=== PATIENT | female | born 1960 ===

== ENCOUNTER 2017-07-18 19:57 | Emergency (ER) | payer MEDICARE, OTHER ==
[2017-07-18 19:58] VITALS: BMI 26.9
--- NOTE | 2017-07-18 20:29 | ED PDOC ---
Arrival/HPI - General Chief Complaint: Anxiety Time Seen by Provider: 07/18/17 20:10 Historian: Patient, Family (daughter) - History of Present Illness Narrative History of Present Illness (Text): 07/18/17 20:25 A 57 year old female, whose past medical history includes diabetes, hypertension , neuropathy, fibromyalgia, anxiety, depression, peripheral neuropathy, presents to the emergency department complaining of sever depression following of [id number]. According to daughter, tonight patient threw herself to the ground, crying. Patient is despondent and talking very little. Patient denies SI/HI. She does mention experiencing slight headache, but denies of any chest pain, shortness of breath, neck pain, back pain, or any other complaints. Symptom Onset: Gradual Symptom Course: Unchanged Past Medical History - Provider Review Nursing Documentation Reviewed: Yes - Infectious Disease Hx of Infectious Diseases: None - Tetanus Immunization Tetanus Immunization: Unknown - Past Medical History Past Medical History: No Previous - Cardiac Hx Pacemaker: No - Pulmonary Hx Respiratory Disorders: Yes Hx Asthma: Yes Hx Pneumonia: Yes - Neurological Hx Paralysis: No - HEENT Hx HEENT Disorder: Yes (uses glasses) - Renal Hx Renal Disorder: No - Endocrine/Metabolic Hx Endocrine Disorders: Yes Hx Diabetes Mellitus Type 2: Yes - Hematological/Oncological Hx Blood Transfusions: No Hx Blood Transfusion Reaction: No - Integumentary Hx Dermatological Disorder: No - Musculoskeletal/Rheumatological Hx Musculoskeletal Disorders: Yes - Gastrointestinal Hx Gastrointestinal Disorders: Yes Hx Gastroesophageal Reflux: Yes - Genitourinary/Gynecological Hx Genitourinary Disorders: No - Psychiatric Hx Emotional Abuse: No Hx Physical Abuse: No Hx Substance Use: No - Surgical History Other/Comment: recent b/l foot sx pt not sure what kind, carpal tunnel b/l sx - Anesthesia Hx Anesthesia Reactions: No Hx Malignant Hyperthermia: No - Suicidal Assessment Feels Threatened In Home Enviroment: No Family/Social History - Physician Review Nursing Documentation Reviewed: Yes Family/Social History: No Known Family HX Smoking Status: Never Smoked Hx Alcohol Use: No Hx Substance Use: No Hx Substance Use Treatment: No Allergies/Home Meds Allergies/Adverse Reactions: Allergies No Known Allergies Allergy (Verified 07/18/17 20:04) Home Medications: Home Meds Medication Instructions Recorded Confirmed Clopidogrel [Plavix] 75 mg PO DAILY 03/10/15 07/18/17 Ergocalciferol (Vitamin D2) 50,000 iu PO QWK 03/10/15 07/18/17 [Vitamin D2] Insulin Glargine, Recombina 24 unit SC HS 03/10/15 07/18/17 [Lantus] Ranitidine HCl 150 mg PO QAM 03/10/15 07/18/17 Losartan [Cozaar] 50 mg PO QAM 06/29/15 07/18/17 Alendronate [Fosamax] 70 mg PO MON 06/30/15 07/18/17 Alprazolam [Xanax] 0.5 mg PO DAILY 08/14/16 07/18/17 Linagliptin [Tradjenta] 5 mg PO DAILY 08/14/16 07/18/17 Simvastatin 40 mg PO DAILY 08/14/16 07/18/17 Metformin HCl [Glucophage] 1,000 mg PO TID 11/15/16 07/18/17 Gabapentin [Neurontin] 600 mg PO TID 11/18/16 07/18/17 Rosuvastatin Calcium 20 mg PO DAILY 11/18/16 07/18/17 Review of Systems - Physician Review All systems were reviewed & negative as marked: Yes - Review of Systems Respiratory: absent: SOB Cardiovascular: absent: Chest Pain Musculoskeletal: absent: Back Pain, Neck Pain Neurological: Headache (slight headache ) Psychiatric: Depression (severe depression) Physical Exam Vital Signs Temp Pulse Resp BP Pulse Ox 07/18/17 22:50 74 16 107/65 100 07/18/17 19:58 98.4 F 72 18 166/104 H 98 Appearance: Positive for: Other (sullen appearance) Mental Status: Positive for: Alert and Oriented X 3 - Systems Exam Head: Present: Atraumatic, Normocephalic Pupils: Present: PERRL Extroacular Muscles: Present: EOMI Conjunctiva: Present: Normal Mouth: Present: Moist Mucous Membranes Neck: Present: Normal Range of Motion Respiratory/Chest: Present: Clear to Auscultation, Good Air Exchange. No: Respiratory Distress, Accessory Muscle Use Cardiovascular: Present: Regular Rate and Rhythm, Normal S1, S2. No: Murmurs Abdomen: Present: Normal Bowel Sounds. No: Tenderness, Distention, Peritoneal Signs Back: Present: Normal Inspection Upper Extremity: Present: Normal Inspection. No: Cyanosis, Edema Lower Extremity: Present: Normal Inspection. No: Edema Neurological: Present: GCS=15, CN II-XII Intact, Speech Normal, Other (no focal deficits) Skin: Present: Warm, Dry, Normal Color. No: Rashes Psychiatric: Present: Alert, Oriented x 3, Other (flat affect) Medical Decision Making ED Course and Treatment: 07/18/17 20:32 Impression: 57 year old female with severe depression. Physical exam shows patient has sullen appearance; alert and oriented x 3, flat affect Plan: -- EKG -- Chest X-ray -- Labs -- Tylenol -- Reassess and disposition Prior Visits: Notes and results from previous visits were reviewed. Patient was last seen in the emergency department on 11/15/2016 for right lower chest pain. Patient was admitted. Progress Notes: EKG shows NSR at 72 BPM with normal intervals. Interpreted by me. 07/19/17 00:11 CXR Impression: As read by me, negative, shows no acute processes. 07/19/17 01:28 Pt. had been cleared prior for d/c psychiatrically by MIRANDA Kinney who cleared with the psychiatrist.[facility] referral given to pt. by MIRANDA.Pts. BS controlled here in the ED following treatment.Pt. is strongly advised to remain compliant with her insulin meds.Family present with her.Both understand in full. - Lab Interpretations Lab Results: 07/18/17 20:45 07/18/17 20:45 Lab Results 07/18/17 20:45: Urine Opiates Screen Negative, Urine Methadone Screen Negative, Ur Barbiturates Screen Negative, Ur Phencyclidine Scrn Negative, Ur Amphetamines Screen Negative, U Benzodiazepines Scrn Negative, U Oth Cocaine Metabols Negative, U Cannabinoids Screen Negative 07/18/17 20:45: Alcohol, Quantitative < 10 07/18/17 20:45: Sodium 136, Potassium 4.4, Chloride 100, Carbon Dioxide 26, Anion Gap 14, BUN 18, Creatinine 0.8, Est GFR ( Amer) > 60, Est GFR (Non- Af Amer) > 60, Random Glucose 594 H* D, Calcium 10.2, Total Bilirubin 0.4, AST 22, ALT 29, Alkaline Phosphatase 151 H, Total Protein 7.4, Albumin 4.2, Globulin 3.1, Albumin/Globulin Ratio 1.4 07/18/17 20:45: WBC 7.5, RBC 4.61, Hgb 13.9, Hct 41.5, MCV 90.0, MCH 30.2, MCHC 33.5, RDW 13.3, Plt Count 219, MPV 12.7 H, Gran % 53.0, Lymph % (Auto) 36.6 H, Vance % (Auto) 7.2 H, Eos % (Auto) 2.4, Baso % (Auto) 0.8, Gran # 3.99, Lymph # 2.8, Vance # 0.5, Eos # 0.2, Baso # 0.06 - RAD Interpretation Radiology Orders: 07/18/17 20:24 CHEST PORTABLE [RAD] Stat - EKG Interpretation Interpreted by ED Physician: Yes Type: 12 lead EKG - Medication Orders Current Medication Orders: Discontinued Medications Acetaminophen (Tylenol 325mg Tab) 650 mg PO STAT STA Stop: 07/18/17 20:27 Last Admin: 07/18/17 21:05 Dose: 650 mg MAR Pain/Vitals Document 07/18/17 21:05 SF (Rec: 07/18/17 21:05 [email or web address]) Pain Reassessment Is This A Pain ReAssessment? Yes Sleep Is patient sleeping during reassessment? No Presence of Pain Presence of Pain Yes Sodium Chloride (Sodium Chloride 0.9%) 1,000 mls @ 999 mls/hr IV .Q1H1M STA Stop: 07/18/17 23:28 Last Admin: 07/18/17 22:15 Dose: 999 mls/hr eMAR Start Stop Document 07/18/17 22:15 CAST (Rec: 07/18/17 22:[id number]) Intravenous Solution Start Date 07/18/17 Start Time 22:59 End Date 07/18/17 Insulin Human Regular (Humulin R) 10 units IVP STAT STA Stop: 07/18/17 21:34 Last Admin: 07/18/17 22:15 Dose: 10 units IVP Administration Document 07/18/17 22:15 [email or web address] (Rec: 07/18/17 22:[id number]) Charges for Administration # of IVP Administrations 1 Insulin Human Regular (Humulin R) 10 units SC STAT STA Stop: 07/18/17 21:34 Last Admin: 07/18/17 22:15 Dose: 10 units Subcutaneous Administrations Document 07/18/17 22:15 [email or web address] (Rec: 07/18/17 22:15 [id number]) Charges for Administration # of Subcutaneous Administrations 1 Subcutaneous Admin in ER Document 07/18/17 22:15 [email or web address] (Rec: 07/18/17 22:15 [email or web address] [id number]) Injection Site MAR Injection Site Left Abdomen - Scribe Statement The provider has reviewed the documentation as recorded by the Jennifer Chand Provider Scribe Attestation: All medical record entries made by the Jennifer were at my direction and personally dictated by me. I have reviewed the chart and agree that the record accurately reflects my personal performance of the history, physical exam, medical decision making, and the department course for this patient. I have also personally directed, reviewed, and agree with the discharge instructions and disposition. Disposition/Present on Arrival - Present on Arrival Any Indicators Present on Arrival: No History of DVT/PE: No History of Uncontrolled Diabetes: No Urinary Catheter: No History of Decub. Ulcer: No History Surgical Site Infection Following: None - Disposition Have Diagnosis and Disposition been Completed?: Yes Diagnosis: Hyperglycemia, Diabetes mellitus, Adjustment disorder with depressed mood Disposition: HOME/ ROUTINE Disposition Time: 01:25 Patient Plan: Discharge Condition: GOOD Additional Instructions: Maintain your insulin medication as prescribed/follow up with your doctor this week/follow up [facility] as instructed Referrals: [facility] [Outside] - Follow up with primary Forms: [employer] (Grenadian)
[2017-07-18 20:49] LABS: BASO # 0.06 K/mm3 (0.0-2.0); BASO % 0.8 % (0.0-3.0); EOS # 0.2 (0.0-0.7); EOS % 2.4 % (1.5-5.0); GRAN # 3.99 (1.4-6.5); HEMATOCRIT 41.5 % (36.0-48.0); LYMPH # 2.8 (1.2-3.4); LYMPH % 36.6 % (22.0-35.0); MEAN CORPUSCULAR HEMOGLOBIN 30.2 pg (25.0-35.0); MEAN CORPUSCULAR HGB CONC 33.5 g/dl (31.0-37.0); MEAN PLATELET VOLUME 12.7 fl (7.0-11.0); MONO # 0.5 (0.1-0.6); MONO % 7.2 % (1.0-6.0); RED CELL DISTRIBUTION WIDTH 13.3 % (11.5-14.5); WHITE BLOOD COUNT 7.5 10^3/ul (4.5-11.0)
[2017-07-18 21:04] LABS: ALB/GLOB RATIO 1.4 (1.1-1.8); ALKALINE PHOSPHATASE 151 U/L (38-126); ALT/SGPT 29 U/L (7-56); AST/SGOT 22 U/L (14-36); BILIRUBIN,TOTAL 0.4 mg/dL (0.2-1.3); BLOOD UREA NITROGEN 18 mg/dL (7-21); CALCIUM 10.2 mg/dL (8.4-10.5); CARBON DIOXIDE 26 mmol/L (21-33); CHLORIDE 100 mmol/L (98-107); GFR AFRICAN-AMERICAN > 60; POTASSIUM 4.4 mmol/L (3.6-5.0); SODIUM 136 mmol/L (132-148); TOTAL PROTEIN 7.4 g/dL (5.8-8.3)
[2017-07-18 21:16] LABS: GLUCOSE,RANDOM 594 mg/dL (70-110)
[2017-07-18] MEDS ORDERED: Insulin Regular 1 UNITS/0.01 ML ML SC STA (21:33)
[2017-07-18] MEDS ORDERED: Insulin Regular 1 UNITS/0.01 ML ML IVP STA (21:33)
[2017-07-18] MEDS ORDERED: Sodium Chloride 0.9% 1,000 ML IV STA (22:28)
[2017-07-19 01:37] VITALS: BP 137/68; PULSE 79; RESP 17; TEMP 98; O2SAT 99
--- NOTE | 2017-07-19 11:46 | RAD ---
HISTORY: medical clearance COMPARISON: 11/15/2016 FINDINGS: LUNGS: No active pulmonary disease. PLEURA: No significant pleural effusion identified, no pneumothorax apparent. CARDIOVASCULAR: Normal. OSSEOUS STRUCTURES: No significant abnormalities. VISUALIZED UPPER ABDOMEN: Normal. OTHER FINDINGS: None. IMPRESSION: No active disease.
--- NOTE | 2017-07-20 08:24 | CARD ---
APPROVED REPORT EKG Measurement Heart [id number] <Conclusion> Normal sinus rhythm Normal ECG No change except the rate is faster now.
== END 2017-07-19 01:37 | disposition home or self-care (01) ==
LOC: ED 19:57
DX: F43.21 Adjustment disorder with depressed mood (principal); E11.65 Type 2 diabetes mellitus with hyperglycemia
CPT/HCPCS: 71010; 80053; 85025; 93005; 96372; 96374; 99284; G0480; J7040

== ENCOUNTER 2017-08-19 19:41 | Emergency (ER) | payer MEDICARE, OTHER ==
[2017-08-19 19:41] VITALS: BMI 26.9
[2017-08-19 19:53] VITALS: TEMP 97.8
[2017-08-19] MEDS ORDERED: Sodium Chloride 0.9% 1,000 ML IV STA (20:13)
[2017-08-19 20:41] LABS: BASO # 0.04 K/mm3 (0.0-2.0); BASO % 0.5 % (0.0-3.0); EOS # 0.1 (0.0-0.7); EOS % 1.5 % (1.5-5.0); GRAN # 3.59 (1.4-6.5); GRAN % 45.5 % (50.0-68.0); HEMATOCRIT 35.7 % (36.0-48.0); LYMPH # 3.7 (1.2-3.4); LYMPH % 46.7 % (22.0-35.0); MEAN CELL VOLUME 88.1 fl (80.0-105.0); MEAN CORPUSCULAR HEMOGLOBIN 29.6 pg (25.0-35.0); MEAN CORPUSCULAR HGB CONC 33.6 g/dl (31.0-37.0); MEAN PLATELET VOLUME 12.3 fl (7.0-11.0); MONO # 0.5 (0.1-0.6); MONO % 5.8 % (1.0-6.0); RED CELL DISTRIBUTION WIDTH 13.9 % (11.5-14.5); WHITE BLOOD COUNT 7.9 10^3/ul (4.5-11.0)
[2017-08-19 20:56] LABS: ALB/GLOB RATIO 1.4 (1.1-1.8); ALKALINE PHOSPHATASE 130 U/L (38-126); ALT/SGPT 32 U/L (7-56); AST/SGOT 21 U/L (14-36); BILIRUBIN,TOTAL 0.6 mg/dL (0.2-1.3); BLOOD UREA NITROGEN 18 mg/dL (7-21); CALCIUM 10.2 mg/dL (8.4-10.5); CARBON DIOXIDE 27 mmol/L (21-33); CHLORIDE 103 mmol/L (98-107); GFR AFRICAN-AMERICAN > 60; POTASSIUM 4.2 mmol/L (3.6-5.0); SODIUM 137 mmol/L (132-148); TOTAL PROTEIN 6.9 g/dL (5.8-8.3)
[2017-08-19 21:03] LABS: INR 1.03 (0.93-1.08); PARTIAL THROMBOPLASTIN TIME 28.7 Seconds (25.1-36.5)
[2017-08-19 21:07] LABS: TROPONIN I < 0.01 ng/mL
[2017-08-19 21:08] LABS: GLUCOSE,RANDOM 339 mg/dL (70-110)
[2017-08-19] MEDS ORDERED: Insulin Reg-MEDIUM-Coverage IV STA (21:08)
--- NOTE | 2017-08-19 21:52 | ED PDOC ---
Arrival/HPI <Shiva Cordero - Last Filed: 08/19/17 22:08> - General Historian: Patient <Marla Harry - Last Filed: 08/20/17 00:14> - General Chief Complaint: Dizziness/Lightheaded Time Seen by Provider: 08/19/17 19:53 - History of Present Illness Narrative History of Present Illness (Text): 08/19/17 21:46 57yo female with PMHx of hypertension, Asthma, diabetes, anxiety who present with complaint of dizziness describes as spinning sensation. Notes that dizziness started when she bent down to cone picker something this morning. States she took Meclizine this morning without relieve. Admits to nausea. she have history of similar dizziness in the past. Denies vomiting, chest pain, focal weakness, headache, visual change, abdominal pain, any other complaint. (Marla Harry) Past Medical History - Provider Review Nursing Documentation Reviewed: Yes - Infectious Disease Hx of Infectious Diseases: None - Tetanus Immunization Tetanus Immunization: Unknown - Past Medical History Past Medical History: No Previous - Cardiac Hx Cardiac Disorders: Yes Hx Hypertension: Yes Hx Pacemaker: No - Pulmonary Hx Respiratory Disorders: Yes Hx Asthma: Yes Hx Pneumonia: Yes - Neurological Hx Paralysis: No - HEENT Hx HEENT Disorder: Yes (uses glasses) - Renal Hx Renal Disorder: No - Endocrine/Metabolic Hx Endocrine Disorders: Yes Hx Diabetes Mellitus Type 2: Yes - Hematological/Oncological Hx Blood Transfusions: No Hx Blood Transfusion Reaction: No - Integumentary Hx Dermatological Disorder: No - Musculoskeletal/Rheumatological Hx Musculoskeletal Disorders: Yes - Gastrointestinal Hx Gastrointestinal Disorders: Yes Hx Gastroesophageal Reflux: Yes - Genitourinary/Gynecological Hx Genitourinary Disorders: No - Psychiatric Hx Emotional Abuse: No Hx Physical Abuse: No Hx Substance Use: No - Surgical History Other/Comment: recent b/l foot sx pt not sure what kind, carpal tunnel b/l sx - Anesthesia Hx Anesthesia: Yes Hx Anesthesia Reactions: No Hx Malignant Hyperthermia: No - Suicidal Assessment Feels Threatened In Home Enviroment: No <Marla Harry - Last Filed: 08/20/17 00:14> Family/Social History - Physician Review Nursing Documentation Reviewed: Yes Family/Social History: Unknown Family HX Smoking Status: Current Some Days Smoker Hx Alcohol Use: No Hx Substance Use: No Hx Substance Use Treatment: No <Marla Harry A - Last Filed: 08/20/17 00:14> Allergies/Home Meds <Shiva Cordero - Last Filed: 08/19/17 22:08> <Marla Harry A - Last Filed: 08/20/17 00:14> Allergies/Adverse Reactions: Allergies No Known Allergies Allergy (Verified 08/19/17 19:49) Home Medications: Home Meds Medication Instructions Recorded Confirmed Clopidogrel [Plavix] 75 mg PO DAILY 03/10/15 08/19/17 Insulin Glargine, Recombina 24 unit SC 03/10/15 08/19/17 [Lantus] Ranitidine HCl 150 mg PO QAM 03/10/15 08/19/17 Losartan [Cozaar] 50 mg PO QAM 06/29/15 08/19/17 Alprazolam [Xanax] 0.5 mg PO DAILY 08/14/16 08/19/17 Linagliptin [Tradjenta] 5 mg PO DAILY 08/14/16 08/19/17 Simvastatin 40 mg PO DAILY 08/14/16 08/19/17 Metformin HCl [Glucophage] 1,000 mg PO TID 11/15/16 08/19/17 Gabapentin [Neurontin] 600 mg PO TID 11/18/16 08/19/17 Rosuvastatin Calcium 20 mg PO DAILY 11/18/16 08/19/17 Review of Systems - Physician Review All systems were reviewed & negative as marked: Yes - Review of Systems Constitutional: Normal Eyes: Normal ENT: Normal Respiratory: Normal Cardiovascular: Normal Gastrointestinal: Normal Genitourinary Female: Normal Musculoskeletal: Normal Skin: Normal Neurological: Headache. absent: Dizziness, Focal Weakness, Speech Changes, Facial Droop Endocrine: Normal Hemo/Lymphatic: Normal Psychiatric: Normal <PieroMarla A - Last Filed: 08/20/17 00:14> Physical Exam Vital Signs Reviewed: Yes Temperature: Afebrile Blood Pressure: Normal Pulse: Regular Respiratory Rate: Normal Appearance: Positive for: Well-Appearing, Non-Toxic, Comfortable Pain Distress: None Mental Status: Positive for: Alert and Oriented X 3 - Systems Exam Head: Present: Atraumatic, Normocephalic Pupils: Present: PERRL Extroacular Muscles: Present: EOMI Conjunctiva: Present: Normal Mouth: Present: Moist Mucous Membranes Neck: Present: Normal Range of Motion Respiratory/Chest: Present: Clear to Auscultation, Good Air Exchange. No: Respiratory Distress, Accessory Muscle Use Cardiovascular: Present: Regular Rate and Rhythm, Normal S1, S2. No: Murmurs Abdomen: Present: Normal Bowel Sounds. No: Tenderness, Distention, Peritoneal Signs Back: Present: Normal Inspection Upper Extremity: Present: Normal Inspection. No: Cyanosis, Edema Lower Extremity: Present: Normal Inspection. No: Edema Neurological: Present: GCS=15, CN II-XII Intact, Speech Normal, Motor Func Grossly Intact, Normal Sensory Function, Normal Cerebellar Funct, Norm Deep Tendon Reflexes, Gait Normal, Memory Normal, Normal 2Pt Descrimination, Other ( No focal neurological deficit) Skin: Present: Warm, Dry, Normal Color. No: Rashes Psychiatric: Present: Alert, Oriented x 3, Normal Insight, Normal Concentration <Marla Harry A - Last Filed: 08/20/17 00:14> Vital Signs Temp Pulse Resp BP Pulse Ox 08/19/17 19:53 97.8 F 62 18 168/97 H 97 Medical Decision Making <Shiva Cordero - Last Filed: 08/19/17 22:08> <Marla Harry - Last Filed: 08/20/17 00:14> ED Course and Treatment: 08/19/17 23:35 PT presented for stated history. She was neurologically intact in ED. Lab was ordered and reviewed with elevated BS noted. She was hydrated and insulin given. On re evaluation she notes that her dizziness resolved. She was ambulatory with steady gait in ED. Repeat FS was EKG NSR @65bpm Head CT - Negative She have seen a Neurologist for her dizziness and takes meclizine at home. She will be DC home to f/u with her PMD/Neruo. (PieroHappiness A) - Lab Interpretations Lab Results: 08/19/17 20:34 08/19/17 20:34 Lab Results 08/19/17 20:34: Sodium 137, Potassium 4.2, Chloride 103, Carbon Dioxide 27, Anion Gap 11, BUN 18, Creatinine 0.7, Est GFR ( Amer) > 60, Est GFR (Non- Af Amer) > 60, Random Glucose 339 H* D, Calcium 10.2, Total Bilirubin 0.6, AST 21, ALT 32, Alkaline Phosphatase 130 H, Lactate Dehydrogenase 408, Total Creatine Kinase 83, Troponin I < 0.01 D, Total Protein 6.9, Albumin 4.0, Globulin 2.9, Albumin/Globulin Ratio 1.4 08/19/17 20:34: PT 11.2, INR 1.03, APTT 28.7 08/19/17 20:34: WBC 7.9, RBC 4.05, Hgb 12.0, Hct 35.7 L, MCV 88.1, MCH 29.6, MCHC 33.6, RDW 13.9, Plt Count 237, MPV 12.3 H, Gran % 45.5 L, Lymph % (Auto) 46.7 H, Bullock % (Auto) 5.8, Eos % (Auto) 1.5, Baso % (Auto) 0.5, Gran # 3.59, Lymph # 3.7 H, Bullock # 0.5, Eos # 0.1, Baso # 0.04 - RAD Interpretation Radiology Orders: 08/19/17 20:14 HEAD W/O CONTRAST [CT] Stat - Medication Orders Current Medication Orders: Discontinued Medications Sodium Chloride (Sodium Chloride 0.9%) 1,000 mls @ 999 mls/hr IV .Q1H1M STA Stop: 08/19/17 21:13 Last Admin: 08/19/17 20:31 Dose: 999 mls/hr eMAR Start Stop Document 08/19/17 20:31 SC (Rec: 08/19/17 20:31 SC [id number]) Intravenous Solution Start Date 08/19/17 Start Time 20:31 End Date 08/19/17 End time 21:31 Total Infusion Time 60 Insulin Human Regular (Humulin R Med) 7 units IV ONCE STA PRN Reason: Protocol Stop: 08/19/17 21:09 Last Admin: 08/19/17 23:21 Dose: 7 units eMAR Start Stop Document 08/19/17 23:21 SC (Rec: 08/19/17 23:21 SC [id number]) Intravenous Solution Start Date 08/19/17 Start Time 23:21 End Date 08/19/17 End time 23:21 Total Infusion Time 0 Meclizine HCl (Antivert) 25 mg PO STAT STA Stop: 08/19/17 20:14 Last Admin: 08/19/17 20:30 Dose: 25 mg Ondansetron HCl (Zofran Inj) 4 mg IVP STAT STA Stop: 08/19/17 20:14 Last Admin: 08/19/17 20:31 Dose: 4 mg IVP Administration Document 08/19/17 20:31 SC (Rec: 08/19/17 20:31 SC [id number]) Charges for Administration # of IVP Administrations 1 - PA / INSPECTOR [employer] / Resident Statement HARPER has reviewed & agrees with the documentation as recorded. HARPER has examined the patient and agrees with the treatment plan. <Shiva Cordero - Last Filed: 08/19/17 22:08> Disposition/Present on Arrival <Shiva Cordero - Last Filed: 08/19/17 22:08> - Present on Arrival Any Indicators Present on Arrival: No History of DVT/PE: No History of Uncontrolled Diabetes: No Urinary Catheter: No History of Decub. Ulcer: No History Surgical Site Infection Following: None - Disposition Have Diagnosis and Disposition been Completed?: Yes Disposition Time: 23:40 Patient Plan: Discharge <Marla Harry - Last Filed: 08/20/17 00:14> - Disposition Diagnosis: Hyperglycemia, Dizziness Disposition: HOME/ ROUTINE Patient Problems: Current Active Problems Problem Status Onset Dizziness Acute Hyperglycemia Acute Condition: STABLE Discharge Instructions (ExitCare): Dizziness (ED) Additional Instructions: follow up with your Doctor/Neurologist Return to ED for any new or worsening symptoms Referrals: Malinda Saucedo MD [Primary Care Provider] - Follow up with primary Forms: [employer] (Martiniquais)
[2017-08-19] MEDS ORDERED: Insulin Regular 1 UNITS/0.01 ML ML ONE (23:19)
--- NOTE | 2017-08-20 00:10 | CT ---
EXAM: CT Head Without Intravenous Contrast CLINICAL HISTORY: 57 years old, female; Pain; Headache; Headache not specified; Additional info: Dizziness TECHNIQUE: Axial computed tomography images of the head/brain without intravenous contrast. All CT scans at this facility use one or more dose reduction techniques, viz.: automated exposure control; ma/kV adjustment per patient size (including targeted exams where dose is matched to indication; i.e. head); or iterative reconstruction technique. COMPARISON: CT - HEAD W/O CONTRAST 2015-11-14 22:10 FINDINGS: Brain: No acute intracranial hemorrhage. No significant white matter disease. No edema. Ventricles: No significant ventriculomegaly. Bones: No acute displaced fracture. Sinuses: Unremarkable as visualized. No acute sinusitis. Mastoid air cells: Unremarkable as visualized. No mastoid effusion. IMPRESSION: No acute intracranial hemorrhage, or suspicious mass effect.
[2017-08-20 00:34] VITALS: BP 153/86; PULSE 67; RESP 16; O2SAT 99
--- NOTE | 2017-08-20 17:04 | CARD ---
APPROVED REPORT EKG Measurement Heart [id number] MA [id number] <Conclusion> Normal sinus rhythm Normal ECG
== END 2017-08-20 00:36 | disposition home or self-care (01) ==
LOC: ED 19:41
DX: E11.65 Type 2 diabetes mellitus with hyperglycemia (principal); R42 Dizziness and giddiness; F17.200 Nicotine dependence, unspecified, uncomplicated; I10 Essential (primary) hypertension; Z79.4 Long term (current) use of insulin
CPT/HCPCS: 70450; 80053; 82550; 82948; 83615; 84484; 85025; 85610; 85730; 93005; 96361; 96374; 99285; J2405; J7040

== ENCOUNTER 2017-11-29 14:34 | Emergency (ER) | payer MEDICARE, OTHER ==
[2017-11-29 15:33] VITALS: BMI 27.8
[2017-11-29 15:43] VITALS: RESP 18; TEMP 98
--- NOTE | 2017-11-29 16:07 | ED PDOC ---
Arrival/HPI - General Chief Complaint: Abnormal Skin Integrity Time Seen by Provider: 11/29/17 15:25 Historian: Patient - History of Present Illness Narrative History of Present Illness (Text): 11/29/17 16:04 57yo female with PMHx of NIDDM , hypertension, Fibromylagia who present with once week history of sinus pressure/pain, nasal congestion. States she started having nonproductive cough ,generalized bodyache and right sided upper back/ breast pain x 2ddays. She did not take any medication. Denies fever, chills, sick contact, travel, chest pain, SOB, dizziness, any other complaint. Past Medical History - Provider Review Nursing Documentation Reviewed: Yes - Infectious Disease Hx of Infectious Diseases: None - Tetanus Immunization Tetanus Immunization: Unknown - Past Medical History Past Medical History: No Previous - Cardiac Hx Cardiac Disorders: Yes Hx Hypertension: Yes - Pulmonary Hx Respiratory Disorders: Yes Hx Asthma: Yes Hx Pneumonia: Yes - Neurological Hx Neurological Disorder: No - HEENT Hx HEENT Disorder: Yes (uses glasses) - Renal Hx Renal Disorder: No - Endocrine/Metabolic Hx Endocrine Disorders: Yes Hx Diabetes Mellitus Type 1: Yes - Hematological/Oncological Hx Blood Disorders: No - Integumentary Hx Dermatological Disorder: No - Musculoskeletal/Rheumatological Hx Musculoskeletal Disorders: Yes - Gastrointestinal Hx Gastrointestinal Disorders: Yes Hx Gastroesophageal Reflux: Yes - Genitourinary/Gynecological Hx Genitourinary Disorders: No - Psychiatric Hx Emotional Abuse: No Hx Physical Abuse: No Hx Substance Use: No - Surgical History Other/Comment: recent b/l foot sx pt not sure what kind, carpal tunnel b/l sx - Anesthesia Hx Anesthesia: Yes Hx Anesthesia Reactions: No Hx Malignant Hyperthermia: No - Suicidal Assessment Feels Threatened In Home Enviroment: No Family/Social History - Physician Review Nursing Documentation Reviewed: Yes Family/Social History: Unknown Family HX Smoking Status: Current Some Days Smoker Hx Alcohol Use: No Hx Substance Use: No Hx Substance Use Treatment: No Allergies/Home Meds Allergies/Adverse Reactions: Allergies No Known Allergies Allergy (Verified 11/29/17 15:44) Review of Systems - Physician Review All systems were reviewed & negative as marked: Yes - Review of Systems Constitutional: Normal Eyes: Normal ENT: Sinus Congestion Respiratory: Cough. absent: SOB, Sputum, Wheezing Cardiovascular: Normal Gastrointestinal: Normal Genitourinary Female: Normal Musculoskeletal: Normal Skin: Rash, Pruritis Neurological: Normal Endocrine: Normal Hemo/Lymphatic: Normal Psychiatric: Normal Physical Exam Vital Signs Reviewed: Yes Vital Signs Temp Pulse Resp BP Pulse Ox 11/29/17 17:30 98 F 76 18 111/76 99 11/29/17 15:40 98 F 71 18 168/83 H 97 Temperature: Afebrile Blood Pressure: Normal Pulse: Regular Respiratory Rate: Normal Appearance: Positive for: Well-Appearing, Non-Toxic, Comfortable Pain Distress: None Mental Status: Positive for: Alert and Oriented X 3 - Systems Exam Head: Present: Atraumatic, Normocephalic Pupils: Present: PERRL Extroacular Muscles: Present: EOMI Conjunctiva: Present: Normal Mouth: Present: Moist Mucous Membranes Nose (Internal): Present: Boggy (B/L), Other (Tenderness over the right maxillary sinus) Neck: Present: Normal Range of Motion Respiratory/Chest: Present: Clear to Auscultation, Good Air Exchange. No: Respiratory Distress, Accessory Muscle Use, Wheezes, Decreased Breath Sounds, Rales, Retracting, Rhonchi Cardiovascular: Present: Regular Rate and Rhythm, Normal S1, S2. No: Murmurs Abdomen: Present: Normal Bowel Sounds. No: Tenderness, Distention, Peritoneal Signs Back: Present: Normal Inspection Upper Extremity: Present: Normal Inspection. No: Cyanosis, Edema Lower Extremity: Present: Normal Inspection. No: Edema Neurological: Present: GCS=15, CN II-XII Intact, Speech Normal Skin: Present: Warm, Dry, Rashes (Erythematous papular rash noted over right breast and right mid back), Normal Color Psychiatric: Present: Alert, Oriented x 3, Normal Insight, Normal Concentration Medical Decision Making ED Course and Treatment: 11/29/17 20:41 Pt in ED for stated history. She was hemodynamcially stable in ED. CXR NAD Rapid flu was negative PT was treated with abx for acute sinusitis. Tamiflu was given for flu like symptoms. Rash is likely viral exanthem and expected to improve without medication. All result was DW the pt. she was advised to drink plenty of fluid . Referred to her PMD. - Lab Interpretations Lab Results: Lab Results 11/29/17 16:00: Influenza Typ A,B (EIA) Negative for flu a/b - RAD Interpretation Radiology Orders: 11/29/17 15:33 CHEST TWO VIEWS (PA/LAT) [RAD] Stat - Medication Orders Current Medication Orders: Discontinued Medications Amoxicillin/Clavulanate Potassium (Augmentin 875 Mg-125 Mg Tab) 1 tab PO STAT STA PRN Reason: Protocol Stop: 11/29/17 17:11 Last Admin: 11/29/17 17:49 Dose: 1 tab Tramadol HCl (Ultram) 50 mg PO STAT STA Stop: 11/29/17 15:41 Last Admin: 11/29/17 16:04 Dose: 50 mg MAR Pain Assessment Document 11/29/17 16:04 [facility] (Rec: 11/29/17 16:04 [facility] [id number]) Pain Reassessment Is this a pain reassessment? No Sleep Is patient sleeping during reassessment? No Presence of Pain Presence of Pain Yes Pain Scale Used Pain Scale Used Numeric Location Left, Right or Bilateral Right Pain Location Body Site Chest Description Intensity of Pain at present 5 Disposition/Present on Arrival - Present on Arrival Any Indicators Present on Arrival: No History of DVT/PE: No History of Uncontrolled Diabetes: No Urinary Catheter: No History of Decub. Ulcer: No History Surgical Site Infection Following: None - Disposition Have Diagnosis and Disposition been Completed?: Yes Diagnosis: Acute sinusitis, Viral syndrome, Viral exanthem Disposition: HOME/ ROUTINE Disposition Time: 17:55 Patient Plan: Discharge Condition: STABLE Discharge Instructions (ExitCare): Sinusitis (ED), Viral Syndrome (ED) Additional Instructions: Drink plenty of fluid and rest Follow up with your doctor Return to ED for any new or worsening symptoms Prescriptions: Amoxicillin/Clavulanate [Augmentin 875 MG-125 MG] 1 tab PO BID #14 tab Benzonatate [Tessalon Perle] 100 mg PO TID #20 capsule Ibuprofen [Motrin Tab] 600 mg PO Q6 #20 tab Oseltamivir Phosphate [Tamiflu] 75 mg PO BID #10 capsule Referrals: [facility] [place]] - Follow up with primary Forms: [employer] (Mongolian)
--- NOTE | 2017-11-29 17:09 | RAD ---
HISTORY: Cough COMPARISON: 07/18/2017 TECHNIQUE: Chest PA and lateral FINDINGS: LUNGS: No active pulmonary disease. PLEURA: No significant pleural effusion identified. No pneumothorax apparent. CARDIOVASCULAR: Normal. OSSEOUS STRUCTURES: No significant abnormalities. VISUALIZED UPPER ABDOMEN: Normal. OTHER FINDINGS: None. IMPRESSION: No active disease. No significant interval change compared to the prior examination(s).
[2017-11-29] MEDS ORDERED: Amoxicillin-Clav 875-125 mg Tab PO STA (17:10)
[2017-11-29 18:16] VITALS: BP 111/76; PULSE 76; O2SAT 99
== END 2017-11-29 18:19 | disposition home or self-care (01) ==
LOC: ED 14:34
DX: J01.90 Acute sinusitis, unspecified (principal); B34.9 Viral infection, unspecified; B09 Unspecified viral infection characterized by skin and mucous membrane lesions; F17.210 Nicotine dependence, cigarettes, uncomplicated

== ENCOUNTER 2018-01-14 11:03 | Emergency (ER) | payer MEDICARE, OTHER ==
[2018-01-14 11:03] VITALS: BMI 27.8
[2018-01-14 11:15] VITALS: TEMP 98.4
[2018-01-14] MEDS ORDERED: Sodium Chloride 0.9% 1,000 ML IV STA (11:54)
--- NOTE | 2018-01-14 11:56 | ED PDOC ---
Arrival/HPI - General Chief Complaint: Back Pain Time Seen by Provider: 01/14/18 11:07 Historian: Patient - History of Present Illness Narrative History of Present Illness (Text): 01/14/18 11:55 This 57 yo female presents to this ED c/o right flank pain x 2 days. Patient stated pain is intermittent, and radiates to lower back. Patient denies fever, sob, cp, uriary symptoms, skin rash, dizziness, trauma, recent travel, sick contact, or abnormal gait. Time/Duration: Other (see hpi) Quality: Aching Context: Home Past Medical History - Provider Review Nursing Documentation Reviewed: Yes - Infectious Disease Hx of Infectious Diseases: None - Tetanus Immunization Tetanus Immunization: Unknown - Past Medical History Past Medical History: No Previous - Cardiac Hx Cardiac Disorders: Yes Hx Hypertension: Yes - Pulmonary Hx Respiratory Disorders: Yes Hx Asthma: Yes Hx Pneumonia: Yes - Neurological Hx Neurological Disorder: No - HEENT Hx HEENT Disorder: Yes (uses glasses) - Renal Hx Renal Disorder: No - Endocrine/Metabolic Hx Endocrine Disorders: Yes Hx Diabetes Mellitus Type 1: Yes - Hematological/Oncological Hx Blood Disorders: No - Integumentary Hx Dermatological Disorder: No - Musculoskeletal/Rheumatological Hx Musculoskeletal Disorders: Yes - Gastrointestinal Hx Gastrointestinal Disorders: Yes Hx Gastroesophageal Reflux: Yes - Genitourinary/Gynecological Hx Genitourinary Disorders: No - Psychiatric Hx Emotional Abuse: No Hx Physical Abuse: No Hx Substance Use: No - Surgical History Hx Orthopedic Surgery: Yes - Anesthesia Hx Anesthesia: Yes Hx Anesthesia Reactions: No Hx Malignant Hyperthermia: No - Suicidal Assessment Feels Threatened In Home Enviroment: No Family/Social History - Physician Review Nursing Documentation Reviewed: Yes Family/Social History: Other (noncontributory) Smoking Status: Current Some Days Smoker Hx Alcohol Use: No Hx Substance Use: No Hx Substance Use Treatment: No Allergies/Home Meds Allergies/Adverse Reactions: Allergies No Known Allergies Allergy (Verified 01/14/18 11:09) Review of Systems - Review of Systems Constitutional: Normal. absent: Fatigue, Weight Change, Fevers Eyes: Normal ENT: Normal Respiratory: Normal Cardiovascular: Normal Gastrointestinal: Abdominal Pain (right flank pain) Genitourinary Female: Normal. absent: Dysuria, Frequency, Hematuria Musculoskeletal: Back Pain Skin: Normal Neurological: Normal Endocrine: Normal Hemo/Lymphatic: Normal Psychiatric: Normal Physical Exam Vital Signs Temp Pulse Resp BP Pulse Ox 01/14/18 11:14 98.4 F 90 15 141/85 97 Temperature: Afebrile Blood Pressure: Normal Pulse: Regular Respiratory Rate: Normal Appearance: Positive for: Well-Appearing, Non-Toxic, Comfortable Pain Distress: None Mental Status: Positive for: Alert and Oriented X 3 - Systems Exam Head: Present: Atraumatic, Normocephalic Pupils: Present: PERRL Extroacular Muscles: Present: EOMI Conjunctiva: Present: Normal Mouth: Present: Moist Mucous Membranes Neck: Present: Normal Range of Motion Respiratory/Chest: Present: Clear to Auscultation, Good Air Exchange. No: Respiratory Distress, Accessory Muscle Use Cardiovascular: Present: Regular Rate and Rhythm, Normal S1, S2. No: Murmurs Abdomen: Present: Normal Bowel Sounds. No: Tenderness, Distention, Peritoneal Signs, Rebound, Guarding Back: Present: Normal Inspection, Paraspinal Tenderness (mild right paravertebral tenderness.). No: CVA Tenderness, Midline Tenderness Upper Extremity: Present: Normal Inspection, Normal ROM. No: Cyanosis, Edema Lower Extremity: Present: Normal Inspection, Normal ROM. No: Edema Neurological: Present: GCS=15, CN II-XII Intact, Speech Normal, Motor Func Grossly Intact, Normal Sensory Function, Normal Cerebellar Funct, Gait Normal, Memory Normal Skin: Present: Warm, Dry, Normal Color. No: Rashes Psychiatric: Present: Alert, Oriented x 3, Normal Insight, Normal Concentration Medical Decision Making ED Course and Treatment: 01/14/18 13:36 Re-evaluation. Patient feels better. Discussed results and plan with patient who expresses understanding. All questions answered and there is agreement with the plan to discharge home with instructions. Patient stable for discharge. Return if symptoms persist or worsen. Re-evaluation Time: 13:36 Reassessment Condition: Re-examined, Improved - Lab Interpretations Lab Results: 01/14/18 11:50 01/14/18 11:50 Lab Results 01/14/18 11:50: Sodium 142, Potassium 5.0, Chloride 99, Carbon Dioxide 33, Anion Gap 15, BUN 10, Creatinine 0.6 L, Est GFR ( Amer) > 60, Est GFR ( Non-Af Amer) > 60, Random Glucose 294 H, Calcium 11.1 H, Total Bilirubin 0.6, AST 25, ALT 27, Alkaline Phosphatase 140 H, Total Protein 8.3, Albumin 4.6, Globulin 3.7, Albumin/Globulin Ratio 1.2 01/14/18 11:50: Urine Color Yellow, Urine Appearance Sl cloudy, Urine pH 6.0, Ur Specific [place] 1.025, Urine Protein Negative, Urine Glucose (UA) 100 H, Urine Ketones Negative, Urine Blood Trace-intact H, Urine Nitrate Negative, Urine Bilirubin Negative, Urine Urobilinogen 0.2, Ur Leukocyte Esterase Moderate H, Urine RBC 0 - 2, Urine WBC 5 - 10, Ur Epithelial Cells 0 - 2, Urine Bacteria Few 01/14/18 11:50: WBC 8.9, RBC 4.88, Hgb 14.7 D, Hct 43.8, MCV 89.8, MCH 30.1, MCHC 33.6, RDW 13.0, Plt Count 295, MPV 12.4 H, Gran % 46.3 L, Lymph % (Auto) 47.1 H, [place] % (Auto) 3.6, Eos % (Auto) 2.3, Baso % (Auto) 0.7, Gran # 4.11, Lymph # (Auto) 4.2 H, [place] # (Auto) 0.3, Eos # (Auto) 0.2, Baso # (Auto) 0.06 I have reviewed the lab results: Yes Interpretation: Abnormal lab values (acute cystitis) - RAD Interpretation Radiology Orders: 01/14/18 11:54 ABD & PELVIS W/O PO OR IV CONT [CT] Stat - Medication Orders Current Medication Orders: Discontinued Medications Sodium Chloride (Sodium Chloride 0.9%) 1,000 mls @ 999 mls/hr IV .Q1H1M STA Stop: 01/14/18 12:54 Last Admin: 01/14/18 11:40 Dose: 999 mls/hr eMAR Start Stop Document 01/14/18 11:40 HI (Rec: 01/14/18 12:05 HI [id number]) Intravenous Solution Start Date 01/14/18 Start Time 11:40 Ketorolac Tromethamine (Toradol) 15 mg IVP STAT STA Stop: 01/14/18 11:55 Last Admin: 01/14/18 12:19 Dose: 15 mg MAR Pain Assessment Document 01/14/18 12:19 PRINCIPAL CLERK (Rec: 01/14/18 12:19 PRINCIPAL CLERK [id number]) Pain Reassessment Is this a pain reassessment? No IVP Administration Document 01/14/18 12:19 [facility] (Rec: 01/14/18 12:19 [id number] Charges for Administration # of IVP Administrations 1 Nitrofurantoin Macrocrystals (Macrobid) 100 mg PO STAT STA PRN Reason: Protocol Stop: 01/14/18 12:47 Phenazopyridine HCl (Pyridium) 200 mg PO STAT STA Stop: 01/14/18 12:48 Disposition/Present on Arrival - Present on Arrival Any Indicators Present on Arrival: No History of DVT/PE: No History of Uncontrolled Diabetes: No Urinary Catheter: No History of Decub. Ulcer: No History Surgical Site Infection Following: None - Disposition Have Diagnosis and Disposition been Completed?: Yes Diagnosis: Acute cystitis, Back pain Disposition: HOME/ ROUTINE Disposition Time: 13:37 Patient Plan: Discharge Patient Problems: Current Active Problems Problem Status Onset Acute cystitis Acute Back pain Acute Condition: GOOD Discharge Instructions (ExitCare): Acute Cystitis (DC) Additional Instructions: Call private doctor for follow up visit in 1-2 days. Drink enough fluids. Take medication as instructed with food. Return to emergency if symptoms worsen Prescriptions: Nitrofurantoin Macrocrystals [Macrobid] 100 mg PO BID #14 cap Phenazopyridine HCl [Pyridium] 200 mg PO TID #9 tablet Referrals: Adán Arevalo MD [Staff Provider] - Follow up with primary Forms: [employer] (Salvadorean)
[2018-01-14 12:03] LABS: BASO # 0.06 K/mm3 (0.0-2.0); BASO % 0.7 % (0.0-3.0); EOS # 0.2 (0.0-0.7); EOS % 2.3 % (1.5-5.0); GRAN # 4.11 (1.4-6.5); GRAN % 46.3 % (50.0-68.0); HEMOGLOBIN 14.7 g/dL (12.0-16.0); LYMPH # 4.2 (1.2-3.4); LYMPH % 47.1 % (22.0-35.0); MEAN CELL VOLUME 89.8 fl (80.0-105.0); MEAN CORPUSCULAR HEMOGLOBIN 30.1 pg (25.0-35.0); MEAN CORPUSCULAR HGB CONC 33.6 g/dl (31.0-37.0); MEAN PLATELET VOLUME 12.4 fl (7.0-11.0); MONO # 0.3 (0.1-0.6); MONO % 3.6 % (1.0-6.0); RBC 4.88 10^6/uL (3.5-6.1); WHITE BLOOD COUNT 8.9 10^3/ul (4.5-11.0)
[2018-01-14 12:04] LABS: URINE BILIRUBIN NEGATIVE (NEGATIVE); URINE BLOOD TRACE-INTACT (NEGATIVE); URINE GLUCOSE (UA) 100 mg/dL (NEGATIVE); URINE LEUKOCYTE ESTERASE MODERATE Leu/uL (NEGATIVE); URINE PROTEIN NEGATIVE mg/dL (<30 mg/dL); URINE UROBILINOGEN 0.2 E.U./dL (<1 E.U./dL)
[2018-01-14 12:05] LABS: URINE COLOR YELLOW (YELLOW)
[2018-01-14 12:12] LABS: ALB/GLOB RATIO 1.2 (1.1-1.8); ALBUMIN 4.6 g/dL (3.0-4.8); ALT/SGPT 27 U/L (7-56); AST/SGOT 25 U/L (14-36); BLOOD UREA NITROGEN 10 mg/dL (7-21); CALCIUM 11.1 mg/dL (8.4-10.5); GFR AFRICAN-AMERICAN > 60; GFR NON-AFRICAN AMERICAN > 60; URINE APPEARANCE SL CLOUDY (CLEAR)
[2018-01-14 12:13] LABS: URINE BACTERIA FEW (NEG); URINE EPITHELIAL CELLS 0 - 2 /hpf (0-5); URINE RBC 0 - 2 /hpf (0-2)
--- NOTE | 2018-01-14 12:41 | CT ---
PROCEDURE: CT Abdomen and Pelvis without intravenous contrast HISTORY: right flank pain COMPARISON: None. TECHNIQUE: Without contrast.. Contrast Dose: Radiation dose: Total exam DLP = Total exam DLP = 643 mGy-cm. This CT exam was performed using one or more of the following dose reduction techniques: Automated exposure control, adjustment of the mA and/or kV according to patient size, and/or use of iterative reconstruction technique. FINDINGS: LOWER THORAX: Unremarkable. LIVER: Unremarkable. No gross lesion or ductal dilatation. GALLBLADDER AND BILE DUCTS: Unremarkable. PANCREAS: Unremarkable. No gross lesion or ductal dilatation. SPLEEN: Unremarkable. ADRENALS: There is a 12 mm left adrenal nodule. This is unchanged KIDNEYS AND URETERS: Unremarkable. No hydronephrosis. No solid mass. VASCULATURE: Unremarkable. No aortic aneurysm. BOWEL: Unremarkable. No obstruction. No gross mural thickening. APPENDIX: Unremarkable. Normal appendix. PERITONEUM: Unremarkable. No free fluid. No free air. LYMPH NODES: Unremarkable. No enlarged lymph nodes. BLADDER: Unremarkable. REPRODUCTIVE: Unremarkable. BONES: No acute fracture. OTHER FINDINGS: None. IMPRESSION: No acute findings
[2018-01-14 14:04] VITALS: BP 142/78; PULSE 82; RESP 18; O2SAT 98
== END 2018-01-14 14:04 | disposition home or self-care (01) ==
LOC: ED 11:03
DX: N30.00 Acute cystitis without hematuria (principal); M54.9 Dorsalgia, unspecified; I10 Essential (primary) hypertension; F17.200 Nicotine dependence, unspecified, uncomplicated
CPT/HCPCS: 74176; 80053; 81001; 85025; 87086; 96374; 99283; J1885; J7040

== ENCOUNTER 2018-03-08 23:44 | Observation (INO) | payer MEDICARE, OTHER ==
--- NOTE | 2018-03-09 00:11 | ED PDOC ---
Arrival/HPI - General Time Seen by Provider: 03/08/18 23:46 Historian: Patient, Family - History of Present Illness Narrative History of Present Illness (Text): 03/09/18 00:09 Alena Ashley is a 57 year old female smoker, whose past medical history includes COPD, IDDM, hypertension, asthma, hyperlipidemia, and GERD, who presents to the emergency room complaining of chest pain. 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 Patient notes pain is worsened with deep inspiration. Patient reports associated nausea with 1 episode of vomiting. Patient denies any fever, chills, shortness of breath, diarrhea, urinary symptoms, back pain, neck pain, headache, dizziness, or any other complaints. Symptom Onset: Gradual Symptom Course: Unchanged Activities at Onset: Light Context: Home Past Medical History - Provider Review Nursing Documentation Reviewed: Yes - Infectious Disease Hx of Infectious Diseases: None - Tetanus Immunization Tetanus Immunization: Unknown - Past Medical History Past Medical History: No Previous - Cardiac Hx Cardiac Disorders: Yes Hx Hypertension: Yes - Pulmonary Hx Respiratory Disorders: Yes Hx Asthma: Yes Hx Pneumonia: Yes - Neurological Hx Neurological Disorder: No - HEENT Hx HEENT Disorder: Yes (uses glasses) - Renal Hx Renal Disorder: No - Endocrine/Metabolic Hx Endocrine Disorders: Yes Hx Diabetes Mellitus Type 1: Yes - Hematological/Oncological Hx Blood Disorders: No - Integumentary Hx Dermatological Disorder: No - Musculoskeletal/Rheumatological Hx Musculoskeletal Disorders: Yes - Gastrointestinal Hx Gastrointestinal Disorders: Yes Hx Gastroesophageal Reflux: Yes - Genitourinary/Gynecological Hx Genitourinary Disorders: No - Psychiatric Hx Emotional Abuse: No Hx Physical Abuse: No Hx Substance Use: No - Surgical History Hx Orthopedic Surgery: Yes - Anesthesia Hx Anesthesia: Yes Hx Anesthesia Reactions: No Hx Malignant Hyperthermia: No - Suicidal Assessment Feels Threatened In Home Enviroment: No Family/Social History - Physician Review Nursing Documentation Reviewed: Yes Family/Social History: Unknown Family HX Smoking Status: Current Some Days Smoker Hx Alcohol Use: No Hx Substance Use: No Hx Substance Use Treatment: No Allergies/Home Meds Allergies/Adverse Reactions: Allergies No Known Allergies Allergy (Verified 03/09/18 00:16) Review of Systems - Physician Review All systems were reviewed & negative as marked: Yes - Review of Systems Constitutional: Normal. absent: Fevers Eyes: Normal ENT: Normal Respiratory: Normal. absent: SOB, Cough Cardiovascular: Chest Pain Gastrointestinal: Abdominal Pain. absent: Diarrhea, Nausea, Vomiting Genitourinary Female: Normal. absent: Dysuria, Frequency, Hematuria, Urine Output Changes Musculoskeletal: Normal. absent: Back Pain, Neck Pain Skin: Normal. absent: Rash Neurological: Normal. absent: Headache, Dizziness Endocrine: Normal Hemo/Lymphatic: Normal Psychiatric: Normal Physical Exam Vital Signs Reviewed: Yes Vital Signs Temp Pulse Resp BP Pulse Ox 03/09/18 02:21 83 17 131/83 100 03/09/18 00:09 97.9 F 89 17 148/100 H 99 Temperature: Afebrile Blood Pressure: Normal Pulse: Regular Respiratory Rate: Normal Appearance: Positive for: Well-Appearing, Non-Toxic, Comfortable Pain Distress: None Mental Status: Positive for: Alert and Oriented X 3 - Systems Exam Head: Present: Atraumatic, Normocephalic Pupils: Present: PERRL Extroacular Muscles: Present: EOMI Conjunctiva: Present: Normal Mouth: Present: Moist Mucous Membranes Neck: Present: Normal Range of Motion Respiratory/Chest: Present: Clear to Auscultation, Good Air Exchange. No: Respiratory Distress, Accessory Muscle Use Cardiovascular: Present: Regular Rate and Rhythm, Normal S1, S2. No: Murmurs Abdomen: No: Tenderness, Distention, Peritoneal Signs Back: Present: Normal Inspection Upper Extremity: Present: Normal Inspection. No: Cyanosis, Edema Lower Extremity: Present: Normal Inspection. No: Edema Neurological: Present: GCS=15, CN II-XII Intact, Speech Normal Skin: Present: Warm, Dry, Normal Color. No: Rashes Psychiatric: Present: Alert, Oriented x 3, Normal Insight, Normal Concentration Medical Decision Making ED Course and Treatment: 03/09/18 00:09 Impression: 57 year old female complaining of chest pressure radiating to LUQ tonight. Plan: -- EKG -- Chest X-ray -- Labs, cardiac enzymes, BNP, VBG -- Reassess and disposition Prior Visits: Notes and results from previous visits were reviewed. Progress Notes: Reviewed EKG, NSR at [address]-segment elevations or depressions, no T-wave inversions, normal intervals. 03/09/18 01:34 Chest X-ray reviewed, shows no acute processes. 05/21/18 02:[address] Saucedo, who is aware and agrees with plan. Accepts pt in to her service. Pt will go to telemetry observation for chest pain and hyperglycemia. - Lab Interpretations Lab Results: 03/09/18 00:25 03/09/18 00:25 Lab Results 03/09/18 00:25: Sodium 139, Chloride 99, Potassium 5.0, Carbon Dioxide 28, Anion Gap 17, BUN 16, Creatinine 0.8, Est GFR ( Amer) > 60, Est GFR (Non- Af Amer) > 60, Random Glucose 525 H* D, Calcium 9.8, Magnesium 1.8, Total Bilirubin 0.3, AST 21, ALT 29, Alkaline Phosphatase 146 H, Lactate Dehydrogenase 426, Total Creatine Kinase 74, Troponin I < 0.01, NT-Pro-B Natriuret Pep 30.5, Total Protein 7.1, Albumin 4.1, Globulin 3.0, Albumin/ Globulin Ratio 1.3 03/09/18 00:25: pO2 50, VBG pH 7.28 L, VBG pCO2 63.0 H, VBG HCO3 29.6 H, VBG Total CO2 31.5 H, VBG O2 Sat (Calc) 86.8 H, VBG Base Excess 1.2, VBG Potassium 4.8, Sodium 137.0, Chloride 100.0, Glucose 555 H*, Lactate 4.3 H*, FiO2 21.0, Venous Blood Potassium 4.8 03/09/18 00:25: WBC 9.6, RBC 4.33, Hgb 13.4, Hct 39.1, MCV 90.3, MCH 30.9, MCHC 34.3, RDW 13.9, Plt Count 285, MPV 12.1 H, Gran % 47.7 L, Lymph % (Auto) 42.4 H , Lamb % (Auto) 7.0 H, Eos % (Auto) 2.3, Baso % (Auto) 0.6, Gran # 4.57, Lymph # (Auto) 4.1 H, Lamb # (Auto) 0.7 H, Eos # (Auto) 0.2, Baso # (Auto) 0.06 03/09/18 00:25: PT 11.6, INR 1.02, APTT 30.3 I have reviewed the lab results: Yes - RAD Interpretation Radiology Orders: 03/09/18 00:24 CHEST PORTABLE [RAD] 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 Yes Sleep Is patient sleeping during reassessment? 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 Intermittent Intensity 3 Pain Behavior Irritability Facial Grimacing Aggravating Factors ADL's Exercise/Activity Alleviating Factors Medication Aspirin (Aspirin) 325 mg PO DAILY REPLACED BY [facility] Last Admin: 03/10/18 09:20 Dose: Not Given Non-Admin Reason: Patient Refused Aspirin (Aspirin Chewable) 81 mg PO DAILY REPLACED BY [facility] Last Admin: 03/10/18 10:05 Dose: Not Given Non-Admin Reason: Patient Refused Famotidine (Pepcid) 40 mg PO [facility] Last Admin: 03/09/18 21:54 Dose: 40 mg Sodium Chloride (Sodium Chloride 0.9%) 1,000 mls @ 80 mls/hr IV .[id number] REPLACED BY [facility] Last Admin: 03/10/18 04:29 Dose: 80 mls/hr eMAR Start Stop Document 03/10/18 04:29 OLIVStephanie (Rec: 03/10/18 04:29 OLIVD [id number]) Intravenous Solution Start Date 03/10/18 Start Time 04:29 Insulin Human Regular (Humulin R) 10 units IVP STAT STA Stop: 03/09/18 02:06 Last Admin: 03/09/18 02:20 Dose: 10 units MAR Blood Glucose Document 03/09/18 02:20 IT (Rec: 03/09/18 02:20 IT [id number]) Blood Glucose Finger Stick Blood Glucose (70-120) 525 IVP Administration Document 03/09/18 02:20 IT (Rec: 03/09/18 02:20 IT [id number]) Charges for Administration # of IVP Administrations 1 Insulin Human Regular (Humulin R Low) 0 units SC ACHS REPLACED BY [facility] PRN Reason: Protocol Last Admin: 03/10/18 12:24 Dose: 2 units MAR Blood Glucose Document 03/10/18 12:24 [facility] (Rec: 03/10/18 12:24 [facility] [id number]) Blood Glucose Finger Stick Blood Glucose (70-120) 247 Subcutaneous Administrations Document 03/10/18 12:24 [facility] (Rec: 03/10/18 12:24 [facility] [id number]) Injection Site MAR Injection Site Right Arm Charges for Administration # of Subcutaneous Administrations 1 Lisinopril (Zestril) 5 mg PO DAILY REPLACED BY [facility] Last Admin: 03/10/18 10:44 Dose: 5 mg MAR Pulse and Blood Pressure Document 03/10/18 10:44 [facility] (Rec: 03/10/18 10:44 [facility] [id number]) Pulse Pulse Rate (60-90) 65 Blood Pressure Blood Pressure (100/60-150/90) 129/83 Metoprolol Tartrate (Lopressor) 25 mg PO BID REPLACED BY [facility] Last Admin: 03/10/18 10:44 Dose: 25 mg MAR Pulse and Blood Pressure Document 03/10/18 10:44 [facility] (Rec: 03/10/18 10:44 [facility] [id number]) Pulse Pulse Rate (60-90) 65 Blood Pressure Blood Pressure (100/60-150/90) 129/83 - Scribe Statement The provider has reviewed the documentation as recorded by the Jennifer Katz Provider Scribe Attestation: All medical record entries made by the Scribe were at my direction and personally dictated by me. I have reviewed the chart and agree that the record accurately reflects my personal performance of the history, physical exam, medical decision making, and the department course for this patient. I have also personally directed, reviewed, and agree with the discharge instructions and disposition. Disposition/Present on Arrival - Present on Arrival Any Indicators Present on Arrival: No History of DVT/PE: No History of Uncontrolled Diabetes: No Urinary Catheter: No History Surgical Site Infection Following: None - Disposition Have Diagnosis and Disposition been Completed?: Yes Diagnosis: Chest pain Disposition: HOSPITALIZED Disposition Time: 02:47 Condition: FAIR
[2018-03-09 01:06] LABS: BASO # 0.06 K/mm3 (0.0-2.0); BASO % 0.6 % (0.0-3.0); EOS # 0.2 (0.0-0.7); EOS % 2.3 % (1.5-5.0); GRAN # 4.57 (1.4-6.5); GRAN % 47.7 % (50.0-68.0); HEMOGLOBIN 13.4 g/dL (12.0-16.0); LYMPH # 4.1 (1.2-3.4); LYMPH % 42.4 % (22.0-35.0); MEAN CELL VOLUME 90.3 fl (80.0-105.0); MEAN CORPUSCULAR HEMOGLOBIN 30.9 pg (25.0-35.0); MEAN CORPUSCULAR HGB CONC 34.3 g/dl (31.0-37.0); MEAN PLATELET VOLUME 12.1 fl (7.0-11.0); MONO # 0.7 (0.1-0.6); RBC 4.33 10^6/uL (3.5-6.1); RED CELL DISTRIBUTION WIDTH 13.9 % (11.5-14.5); WHITE BLOOD COUNT 9.6 10^3/ul (4.5-11.0)
[2018-03-09 01:09] LABS: VENOUS BLOOD GAS BASE EXCESS 1.2 mmol/L (0.0-2.0); VENOUS BLOOD GAS PO2 50 mm/Hg (30-55); VENOUS BLOOD PH 7.28 (7.32-7.43)
[2018-03-09 01:19] LABS: ALB/GLOB RATIO 1.3 (1.1-1.8); ALBUMIN 4.1 g/dL (3.0-4.8); ALT/SGPT 29 U/L (7-56); AST/SGOT 21 U/L (14-36); BLOOD UREA NITROGEN 16 mg/dL (7-21); CALCIUM 9.8 mg/dL (8.4-10.5); GFR AFRICAN-AMERICAN > 60; GFR NON-AFRICAN AMERICAN > 60
[2018-03-09 01:28] LABS: INR 1.02 (0.93-1.08); PARTIAL THROMBOPLASTIN TIME 30.3 Seconds (25.1-36.5); PROTHROMBIN TIME 11.6 SECONDS (9.4-12.5)
[2018-03-09 01:29] LABS: B-TYPE NATRIURETIC PEPTIDE 30.5 pg/mL (0-450); TROPONIN I < 0.01 ng/mL
[2018-03-09] MEDS ORDERED: Insulin Regular 1 UNITS/0.01 ML ML IVP STA (02:05)
[2018-03-09] MEDS: Sodium Chloride 0.9% 1,000 ML IV SCH ×2 (02:20→16:53)
[2018-03-09 04:57] VITALS: BMI 27.4
[2018-03-09 06:42] LABS: VENOUS BLOOD GAS BASE EXCESS 3.9 mmol/L (0.0-2.0); VENOUS BLOOD GAS PO2 41 mm/Hg (30-55); VENOUS BLOOD PH 7.34 (7.32-7.43)
[2018-03-09 08:16] LABS: ALB/GLOB RATIO 1.3 (1.1-1.8); ALBUMIN 3.8 g/dL (3.0-4.8); ALT/SGPT 26 U/L (7-56); AST/SGOT 16 U/L (14-36); BLOOD UREA NITROGEN 15 mg/dL (7-21); GFR AFRICAN-AMERICAN > 60; GFR NON-AFRICAN AMERICAN > 60; HDL CHOLESTEROL 36 mg/dL (29-60)
[2018-03-09] MEDS: Insulin Reg-LOW-Coverage SC SCH ×4 (08:22→21:53)
[2018-03-09 08:24] LABS: LDL CHOLESTEROL 175 mg/dL (0-129)
[2018-03-09 08:35] LABS: TROPONIN I < 0.01 ng/mL
--- NOTE | 2018-03-09 08:58 | RAD ---
HISTORY: cp COMPARISON: 11/29/2017 FINDINGS: LUNGS: No active pulmonary disease. PLEURA: No significant pleural effusion identified, no pneumothorax apparent. CARDIOVASCULAR: Normal. OSSEOUS STRUCTURES: No significant abnormalities. VISUALIZED UPPER ABDOMEN: Normal. OTHER FINDINGS: None. IMPRESSION: No active disease.
[2018-03-09 14:39] LABS: TROPONIN I < 0.01 ng/mL
--- NOTE | 2018-03-09 17:56 | CARD ---
APPROVED REPORT EKG Measurement Heart [id number] <Conclusion> Normal sinus rhythm Normal ECG
--- NOTE | 2018-03-10 00:17 | CON ---
DATE: 03/09/2018 REASON FOR THE CONSULTATION: Cardiac evaluation, admitted with right upper quadrant pain radiating to the chest, rule out underlying coronary artery disease. BRIEF CLINICAL HISTORY: This is a 57-year-old female with past medical history significant for borderline hypertension, multiple admissions with chest pain. Patient had a stress test in the past, recently being seen by Dr. José Nieto last month. Came into the ER with complaint of right upper quadrant pain and epigastric pain that radiated to the chest. Denies any chest pain, dyspnea on exertion or chest pain on exertion. PAST MEDICAL HISTORY: Significant for diabetes, hypertension, hyperlipidemia, obesity, increased body mass index, history of COPD. Previous cardiac workup as follows; the patient had an echocardiography done on 08/19/2014 that shows unremarkable study. The patient had a stress test on 08/19/2014, normal myocardial perfusion study. The patient had a repeat stress test followed at [facility] by Dr. Nieto, essentially normal, and repeat echocardiography on 11/15/2015 shows normal chamber size, ejection fraction 70%, trace MR, trace TR. The patient was recently seen by Dr. Nieto and follows up there. SOCIAL HISTORY: Denies smoking. Denies any history of alcohol abuse. CURRENT MEDICATIONS: Patient is taking simvastatin, ranitidine, metoprolol 50 mg twice a day, metformin 500 b.i.d., meclizine, losartan, Tradjenta, gabapentin and Plavix 75 mg daily, Flomax. REVIEW OF SYSTEMS: As per HPI. PHYSICAL EXAMINATION VITAL SIGNS: Temperature afebrile, heart rate 80, blood pressure 130/80. HEENT: PERRLA. Extraocular muscles intact. NECK: Supple. No carotid bruits or thyromegaly. CHEST: Clear to auscultation. HEART: S1 and S2, regular. ABDOMEN: Soft. EXTREMITIES: Clubbing and cyanosis negative. LABORATORY DATA: EKG showed normal sinus, heart rate of 77, no ST-T changes noted. Blood workup as follows; WBC 9.6, hemoglobin 13.4, hematocrit 39.1, platelet count 285. Chemistry shows sodium 142, potassium 4, chloride 102, carbon dioxide 19, anion gap of 19, BUN 15, creatinine 0.7. IMPRESSION: Atypical chest pain, history of stress test negative, diabetes, hypertension, hyperlipidemia, epigastric pain. RECOMMENDATIONS: We will add troponin in the morning troponin at 2:00; if the troponin remains negative, we will discontinue telemetry. Follow up with Dr. Nieto. Thank you Dr. Saucedo for providing me the opportunity in taking care of the patient, Alena Ashley. We will follow with you. Jose G Martinez MD
[2018-03-10] MEDS: Sodium Chloride 0.9% 1,000 ML IV SCH (04:29)
[2018-03-10 06:58] LABS: IRON 111 ug/dL (45-180)
[2018-03-10 06:59] LABS: HDL CHOLESTEROL 30 mg/dL (29-60)
[2018-03-10 07:09] LABS: % IRON SATURATION 42 % (20-55); TOTAL IRON BINDING CAPACITY 266 ug/dL (265-497)
[2018-03-10 07:10] LABS: LDL CHOLESTEROL 165 mg/dL (0-129); TROPONIN I < 0.01 ng/mL
[2018-03-10 07:52] VITALS: RESP 18; TEMP 97.9; O2SAT 98
[2018-03-10] MEDS: Insulin Reg-LOW-Coverage SC SCH ×2 (08:23→12:24)
[2018-03-10 09:40] LABS: URINE BILIRUBIN NEGATIVE (NEGATIVE); URINE BLOOD NEGATIVE (NEGATIVE); URINE GLUCOSE (UA) 500 mg/dL (NEGATIVE); URINE LEUKOCYTE ESTERASE MODERATE Leu/uL (NEGATIVE); URINE PROTEIN NEGATIVE mg/dL (<30 mg/dL); URINE UROBILINOGEN 0.2 E.U./dL (<1 E.U./dL)
[2018-03-10 09:41] LABS: URINE APPEARANCE CLEAR (CLEAR); URINE COLOR YELLOW (YELLOW)
[2018-03-10 09:48] LABS: URINE RBC NEGATIVE /hpf (0-2)
[2018-03-10 10:48] VITALS: BP 129/83; PULSE 65
[2018-03-10 13:12] LABS: FOLATE 8.6 ng/mL
--- NOTE | 2018-03-10 14:53 | PN ---
DATE: 03/10/2018 REASON FOR CONSULTATION: Cardiac evaluation, admitted with right upper quadrant pain radiating to the chest. SUBJECTIVE: The patient denies any chest pain today, shortness of breath, denies palpitations. OBJECTIVE: GENERAL: Not in apparent distress. VITAL SIGNS: Temperature afebrile, heart rate 70, blood pressure 158/90. HEENT: PERRLA, intact. NECK: Supple. No carotid bruit or thyromegaly. CHEST: Clear to auscultation. HEART: S1 and S2, regular. ABDOMEN: Soft. EXTREMITIES: Clubbing and cyanosis negative. LABORATORY DATA: Blood workup as follows, WBC , hemoglobin , hematocrit 39.1, platelet count 285. Chemistry shows sodium 140, potassium 4.8, chloride 102, carbon dioxide 29, anion gap of 17, BUN 15, creatinine 0.7. Troponin is 0.01 x3 negative. No evidence of acute TN. Troponin x4 negative. Atypical chest pain, hyperlipidemia, total cholesterol 230, LDL 265 with HDL 30. AST and ALT is within normal limits. IMPRESSION: Atypical chest pain, so far no evidence of acute myocardial infarction, history of previous negative cardiac workup including a stress test twice negative, diabetes, hypertension, hyperlipidemia and epigastric pain. RECOMMENDATIONS: We will discontinue IV fluid. Start antihypertensive medication, low-dose beta-alfredo and IRAIDA inhibitors. We will follow. Upon discharge, the patient will be followed by Dr. José Nieto. Explained to the patient. We will also add a statin because the patient has high cholesterol. Discontinue IV fluids. The patient is getting 80 mL an hour IV fluids as the patient is hypertensive. She was significantly improved yesterday, came in with 525 blood sugar. Thank you, Dr. Saucedo, for providing us the opportunity in taking care of the patient, Alena Ashley. Because of multiple risk factors including diabetes and hyperlipidemia, suggest to continue aspirin 81 mg daily. We will change it to 81 mg daily and upon discharge, the patient will follow up with Dr. Nieto, who will do the stress test. Discussed with the patient that follow with Dr. Nieto and schedule a stress test as an outpatient. Jose G Martinez MD
--- NOTE | 2018-03-10 16:03 | HP ---
DATE OF EXAM: 03/09/2018 CHIEF COMPLAINT: Chest pain. HISTORY OF PRESENT ILLNESS: Ms. Alena Ashley is a 57-year-old female, my private patient, with history of smoking, multiple medical problems, COPD, diabetes mellitus, hypertension, asthma, hypercholesterolemia, GERD, came to the Emergency Department complaining of chest pain. Patient states she has been experiencing chest pain like pressure, radiating to her left lower quadrant tonight. Patient noticed pain is worsened with deep inspiration. Patient reports associated nausea with one episode of vomiting. Patient denies any fever, chills, shortness of breath, diarrhea, urinary symptoms, back pain, neck pain, headache, or dizziness. Patient was seen in her room. PAST MEDICAL HISTORY: As above. History of hypertension, asthma, pneumonia, COPD, diabetes mellitus type , GERD, dyspepsia, history of orthopedic surgery. FAMILY HISTORY: Father and mother, noncontributory. HABITS: Current smoking. No drugs. No ethanol. No substance abuse. ALLERGIES: PATIENT IS NOT ALLERGIC TO ANY MEDICATION. HOME MEDICATIONS: Patient does not remember. REVIEW OF SYSTEMS: Patient was seen and examined in her room, looking comfortable. No nausea, vomiting, diarrhea. No hematuria or hematochezia. No swelling of the legs. No chest pain, no palpitation. No headache, no dizziness. Still complaining about chest pain. A 12-point review of system is within normal limits except as dictated above. PHYSICAL EXAMINATION: VITAL SIGNS: Temperature 97.9, pulse 89, respiratory rate 17, blood pressure 148/100. HEENT: Head was normocephalic and atraumatic. Eyes, PERRLA. Extraocular muscles intact. Conjunctivae clear. Nose patent. Mucous membranes moist. NECK: Supple. No carotid bruit. No JVD or thyromegaly. CHEST: Bilaterally symmetrical. HEART: S1 and S2 positive. LUNGS: Clear to auscultation. ABDOMEN: Soft, bowel sounds present. No organomegaly. EXTREMITIES: No edema. No cyanosis. NEUROLOGIC: Patient is awake, alert. Moving all four extremities. No focal deficits. LABORATORY DATA: White blood cells 9.6, hemoglobin 13.4, hematocrit 39.1, platelets 259. Sodium 139, potassium 5, BUN 16, creatinine 0.8, glucose 525. ASSESSMENT AND PLAN: Ms. Alena Ashley is a 57-year-old lady with uncontrolled diabetes mellitus type , came with chest pain. We admitted the patient. Cardiology consult called with Dr. Alex Ruffin. We will call Pulmonary consult with Dr. Sprague. Restarted all medications. Gastrointestinal and deep vein thrombosis prophylaxis. Repeat labs. We will follow up. Malinda Saucedo MD
== END 2018-03-10 15:25 | disposition home or self-care (01) ==
LOC: ED 23:44 → ERH 03-09 03:03 → 2RSO 03-09 03:57 → 3RNO 03-09 23:12
PROVIDERS: ADMIT Internal Medicine; ATTEND Internal Medicine
DX: R07.89 Other chest pain (principal); E10.65 Type 1 diabetes mellitus with hyperglycemia; E78.00 Pure hypercholesterolemia, unspecified; E78.5 Hyperlipidemia, unspecified; I10 Essential (primary) hypertension; J44.9 Chronic obstructive pulmonary disease, unspecified; K21.9 Gastro-esophageal reflux disease without esophagitis; F17.200 Nicotine dependence, unspecified, uncomplicated; Z79.4 Long term (current) use of insulin; Z87.01 Personal history of pneumonia (recurrent); R40.2412 Glasgow coma scale score 13-15, at arrival to emergency department
CPT/HCPCS: 36415; 71045; 80053; 80061; 81001; 82550; 82607; 82746; 82803; 82948; 83036; 83540; 83550; 83615; 83735; 83880; 84100; 84443; 84484; 85025; 85610; 85730; 87086; 93005; 96374; 99283; G0378; J7040

== ENCOUNTER 2019-01-27 11:08 | Emergency (ER) | payer MEDICARE, OTHER ==
[2019-01-27 11:09] VITALS: BMI 27.4
[2019-01-27 11:52] VITALS: RESP 18; TEMP 97.9
--- NOTE | 2019-01-27 12:07 | ED PDOC ---
Arrival/HPI - General Historian: Patient - History of Present Illness Narrative History of Present Illness (Text): 01/27/19 12:02 58 y/o female, pmh including htn/dm, nkda, post menopausal, c/o lower back pain and rt. lower extremity pain x 2 days. Pt. stated that she has this pain x 2 days, radiating to the rt. lower extremity, on and off, painful, no urinary or bowel incontinence/retention, no headache/neck pain, no numbness or tingling, no chest pain, no shortness of breath, no night sweat, no dizziness, no rash, no other medical or psychological complaints. Past Medical History - Provider Review Nursing Documentation Reviewed: Yes - Infectious Disease Hx of Infectious Diseases: None - Tetanus Immunization Tetanus Immunization: Unknown - Past Medical History Past Medical History: No Previous - Cardiac Hx Cardiac Disorders: Yes Hx Congestive Heart Failure: Yes Hx Hypertension: Yes Hx Pacemaker: No - Pulmonary Hx Respiratory Disorders: Yes Hx Asthma: Yes Hx Pneumonia: Yes - Neurological Hx Neurological Disorder: No Hx Paralysis: No Other/Comment: fibromyalgia - HEENT Hx HEENT Disorder: No - Renal Hx Renal Disorder: No - Endocrine/Metabolic Hx Endocrine Disorders: Yes Hx Diabetes Mellitus Type 1: Yes - Hematological/Oncological Hx Blood Disorders: No Hx Blood Transfusions: No Hx Blood Transfusion Reaction: No - Integumentary Hx Dermatological Disorder: No - Musculoskeletal/Rheumatological Hx Musculoskeletal Disorders: No Hx Falls: No - Gastrointestinal Hx Gastrointestinal Disorders: Yes Hx Gastroesophageal Reflux: Yes - Genitourinary/Gynecological Hx Genitourinary Disorders: No - Psychiatric Hx Psychophysiologic Disorder: No Hx Anxiety: Yes Hx Depression: Yes Hx Emotional Abuse: No Hx Physical Abuse: No Hx Substance Use: No - Surgical History Hx Hysterectomy: Yes Hx Orthopedic Surgery: Yes (CARPAL TUNNEL RELEASE) Other/Comment: recent b/l foot sx pt not sure what kind, carpal tunnel b/l sx - Anesthesia Hx Anesthesia: Yes Hx Anesthesia Reactions: No Hx Malignant Hyperthermia: No - Suicidal Assessment Feels Threatened In Home Enviroment: No Family/Social History - Physician Review Nursing Documentation Reviewed: Yes Family/Social History: Unknown Family HX Smoking Status: Light Smoker < 10 Cigarettes Daily Hx Alcohol Use: No Hx Substance Use: No Hx Substance Use Treatment: No Allergies/Home Meds Allergies/Adverse Reactions: Allergies No Known Allergies Allergy (Verified 06/10/18 11:24) Home Medications: Home Meds Medication Instructions Recorded Confirmed Clopidogrel [Plavix] 75 mg PO DAILY 06/10/18 06/11/18 Furosemide 40 mg PO DAILY 06/10/18 06/11/18 Losartan Potassium 100 mg PO DAILY 06/10/18 06/11/18 Metoprolol Tartrate [Lopressor] 50 mg PO BID 06/10/18 06/11/18 Montelukast Sodium [Singulair] 10 mg PO DAILY 06/10/18 06/11/18 Famotidine [Pepcid] 40 mg PO DAILY 06/11/18 06/11/18 Insulin Aspart [Novolog] 100 unit SC ACBD 06/11/18 06/11/18 Insulin Glargine, Recombina 100 unit SC HS 06/11/18 06/11/18 [Lantus] Review of Systems - Review of Systems Constitutional: absent: Fatigue, Fevers Eyes: absent: Vision Changes ENT: absent: Hearing Changes Respiratory: absent: SOB, Cough Cardiovascular: absent: Chest Pain Gastrointestinal: absent: Abdominal Pain, Nausea, Vomiting Musculoskeletal: Back Pain. absent: Arthralgias Skin: absent: Rash, Pruritis Neurological: absent: Headache Psychiatric: absent: Anxiety, Depression, Suicidal Ideation Physical Exam Vital Signs Reviewed: Yes Vital Signs Temp Pulse Resp BP Pulse Ox 01/27/19 11:51 97.9 F 80 18 195/101 H 100 Temperature: Afebrile Blood Pressure: Hypertensive Pulse: Regular Respiratory Rate: Normal Appearance: Positive for: Well-Appearing, Non-Toxic, Comfortable Pain Distress: Moderate Mental Status: Positive for: Alert and Oriented X 3 - Systems Exam Head: Present: Atraumatic, Normocephalic Pupils: Present: PERRL Extroacular Muscles: Present: EOMI Conjunctiva: Present: Normal Mouth: Present: Moist Mucous Membranes Neck: Present: Normal Range of Motion Respiratory/Chest: Present: Clear to Auscultation, Good Air Exchange. No: Respiratory Distress, Accessory Muscle Use Cardiovascular: Present: Regular Rate and Rhythm, Normal S1, S2. No: Murmurs Abdomen: No: Tenderness, Distention, Peritoneal Signs Back: Present: Normal Inspection, Paraspinal Tenderness, Other (LS spine: +ttp on the rt. paraspinal muscle region, no midline tenderness or step off, no cva tenderness, FROM without limitation, sensation intact, motor 5/5, no sadlding gait. ). No: CVA Tenderness, Midline Tenderness, Decubitus Ulcer Upper Extremity: Present: Normal Inspection. No: Cyanosis, Edema Lower Extremity: Present: Normal Inspection, NORMAL PULSES, Neurovascularly Intact, Capillary Refill < 2 s. No: Edema, Tenderness, Swelling Neurological: Present: GCS=15, CN II-XII Intact, Speech Normal, Motor Func Gross ly Intact, Normal Cerebellar Funct, Gait Normal, Memory Normal Skin: Present: Warm, Dry, Normal Color. No: Rashes Psychiatric: Present: Alert, Oriented x 3, Normal Insight, Normal Concentration Medical Decision Making ED Course and Treatment: 01/27/19 12:27 -Labs -CT -Xray -Doppler -IV toradol/valium -Observe and reassess 01/27/19 14:47 -CT Lumbar spine: Disc bulging at multiple levels. No focal disc herniation -Bilateral hip/pelvis xray: Unremarkable radiographs of the hips and pelvis. -Bilateral LE venuous doppler: as per preliminary report, no acute DVT -Labs show no acute findings -UA show mild UTI -Pt. feels better, vitally improved, no focal neurological deficits, walking around. -Discharge home with macrobid, percocet, bed rest, follow up with your own pmd and orthopedic within 2 days, return to the ER for any new or worsening signs or symptoms. - RAD Interpretation Radiology Orders: -CT Lumbar Date of service: 01/27/2019 PROCEDURE: CT Lumbar Spine without contrast HISTORY: lower back pain x 2 days, radiating to RLE COMPARISON: None available. TECHNIQUE: Axial computed tomography images were obtained of the lumbar spine without the use of intravenous contrast. Coronal and sagittal reformatted images were created and reviewed. Radiation dose: Total exam DLP = 698.39 mGy-cm. This CT exam was performed using one or more of the following dose reduction techniques: Automated exposure control, adjustment of the mA and/or kV according to patient size, and/or use of iterative reconstruction technique. FINDINGS: VERTEBRAE: Unremarkable. No fracture. Normal alignment. DISCS/SPINAL CANAL/NEURAL FORAMINA: L1-2: Unremarkable. L2-3: Mild disc bulge L3-4: Moderate disc bulge without stenosis L4-5: Moderate disc bulge and mild stenosis L5-S1: Mild disc bulge PARASPINAL SOFT TISSUES: Unremarkable. OTHER FINDINGS: None. IMPRESSION: Disc bulging at multiple levels. No focal disc herniation -Bilateral hip/pelvis xray PROCEDURE: Radiographs of the pelvis and bilateral hips HISTORY: bilateral hip pain COMPARISON: None. TECHNIQUE: Four views obtained. FINDINGS: BONES: Pelvis: Unremarkable. Right hip:Unremarkable. Left hip:Unremarkable. JOINTS: Right hip: Unremarkable. Left hip: Unremarkable. Sacroiliac Joints: Unremarkable. Pubic symphysis: Unremarkable. SOFT TISSUES: Normal. OTHER FINDINGS: None. IMPRESSION: Unremarkable radiographs of the hips and pelvis. -Bilateral LE venuous doppler: as per preliminary report, no acute DVT Project Management Intern: Radiologist - PA / RESOURCING ADVISOR / Resident Statement / has reviewed & agrees with the documentation as recorded. Disposition/Present on Arrival - Present on Arrival Any Indicators Present on Arrival: No History of DVT/PE: No History of Uncontrolled Diabetes: No Urinary Catheter: No History of Decub. Ulcer: No History Surgical Site Infection Following: None - Disposition Have Diagnosis and Disposition been Completed?: Yes Diagnosis: UTI (urinary tract infection), Low back pain, Bulging lumbar disc Disposition: HOME/ ROUTINE Disposition Time: 14:50 Patient Plan: Discharge Condition: IMPROVED Additional Instructions: -Discharge home with macrobid, percocet, bed rest, follow up with your own pmd and orthopedic within 2 days, return to the ER for any new or worsening signs or symptoms. Prescriptions: Nitrofurantoin Macrocrystals [Macrobid] 100 mg PO BID #14 cap oxyCODONE/Acetaminophen [Percocet 5/325 mg Tab] 1 tab PO QID PRN #12 tab PRN Reason: Other Referrals: Malinda Saucedo MD [Primary Care Provider] - Follow up with primary Eriberto Mccormack MD [Staff Provider] - Follow up with primary Eder Amaya MD [Staff Provider] - Follow up with primary Forms: WORK NOTE
[2019-01-27 12:43] LABS: BASO # 0.04 K/mm3 (0.0-2.0); BASO % 0.6 % (0.0-3.0); EOS # 0.2 (0.0-0.7); EOS % 2.5 % (1.5-5.0); HEMOGLOBIN 12.7 g/dL (12.0-16.0); LYMPH # 3.1 (1.2-3.4); LYMPH % 43.8 % (22.0-35.0); MEAN CELL VOLUME 91.7 fl (80.0-105.0); MEAN CORPUSCULAR HEMOGLOBIN 29.3 pg (25.0-35.0); MEAN PLATELET VOLUME 12.1 fl (7.0-11.0); MONO # 0.5 (0.1-0.6); MONO % 6.5 % (1.0-6.0); RBC 4.33 10^6/uL (3.5-6.1); RED CELL DISTRIBUTION WIDTH 13.3 % (11.5-14.5); WHITE BLOOD COUNT 7.1 10^3/uL (4.5-11.0)
[2019-01-27 12:57] LABS: ALB/GLOB RATIO 1.2 (1.1-1.8); ALBUMIN 3.8 g/dL (3.0-4.8); ALT/SGPT 26 U/L (7-56); AST/SGOT 22 U/L (14-36); BLOOD UREA NITROGEN 9 mg/dL (7-21); CALCIUM 9.4 mg/dL (8.4-10.5); GFR NON-AFRICAN AMERICAN > 60
[2019-01-27 13:25] VITALS: O2SAT 98
--- NOTE | 2019-01-27 13:49 | US ---
HISTORY: Leg pain and swelling. Evaluate for DVT PHYSICIAN(S): Alex Apodaca MD. TECHNIQUE: Duplex sonography and color-flow Doppler with graded compression were used to evaluate the deep venous systems of both lower extremities. FINDINGS: The visualized deep venous systems of both lower extremities are sonographically normal and compressible. Normal wave forms and augmentation are seen. There is no sonographic evidence for deep venous thrombosis in the visualized segments of both lower extremities. IMPRESSION: No sonographic evidence for deep venous thrombosis in the visualized segments of both lower extremities.
--- NOTE | 2019-01-27 14:05 | RAD ---
PROCEDURE: Radiographs of the pelvis and bilateral hips HISTORY: bilateral hip pain COMPARISON: None. TECHNIQUE: Four views obtained. FINDINGS: BONES: Pelvis: Unremarkable. Right hip:Unremarkable. Left hip:Unremarkable. JOINTS: Right hip: Unremarkable. Left hip: Unremarkable. Sacroiliac Joints: Unremarkable. Pubic symphysis: Unremarkable. SOFT TISSUES: Normal. OTHER FINDINGS: None. IMPRESSION: Unremarkable radiographs of the hips and pelvis.
[2019-01-27 14:09] LABS: URINE BILIRUBIN NEGATIVE (NEGATIVE); URINE BLOOD NEGATIVE (NEGATIVE); URINE GLUCOSE (UA) 500 mg/dL (NEGATIVE); URINE LEUKOCYTE ESTERASE TRACE Leu/uL (NEGATIVE); URINE PROTEIN NEGATIVE mg/dL (<30 mg/dL); URINE UROBILINOGEN 0.2 E.U./dL (<1 E.U./dL)
[2019-01-27 14:14] LABS: URINE APPEARANCE CLEAR (CLEAR); URINE COLOR YELLOW (YELLOW)
[2019-01-27 14:25] LABS: URINE BACTERIA SMALL /hpf; URINE RBC 0 - 2 /hpf (0-2)
--- NOTE | 2019-01-27 14:39 | CT ---
Date of service: 01/27/2019 PROCEDURE: CT Lumbar Spine without contrast HISTORY: lower back pain x 2 days, radiating to RLE COMPARISON: None available. TECHNIQUE: Axial computed tomography images were obtained of the lumbar spine without the use of intravenous contrast. Coronal and sagittal reformatted images were created and reviewed. Radiation dose: Total exam DLP = 698.39 mGy-cm. This CT exam was performed using one or more of the following dose reduction techniques: Automated exposure control, adjustment of the mA and/or kV according to patient size, and/or use of iterative reconstruction technique. FINDINGS: VERTEBRAE: Unremarkable. No fracture. Normal alignment. DISCS/SPINAL CANAL/NEURAL FORAMINA: L1-2: Unremarkable. L2-3: Mild disc bulge L3-4: Moderate disc bulge without stenosis L4-5: Moderate disc bulge and mild stenosis L5-S1: Mild disc bulge PARASPINAL SOFT TISSUES: Unremarkable. OTHER FINDINGS: None. IMPRESSION: Disc bulging at multiple levels. No focal disc herniation
[2019-01-27 15:00] VITALS: BP 133/94; PULSE 63
== END 2019-01-27 15:03 | disposition home or self-care (01) ==
LOC: ED 11:08
DX: M54.5 Low back pain (principal); N39.0 Urinary tract infection, site not specified; I50.9 Heart failure, unspecified; I10 Essential (primary) hypertension; E11.9 Type 2 diabetes mellitus without complications; F17.210 Nicotine dependence, cigarettes, uncomplicated
CPT/HCPCS: 72131; 73522; 80053; 81001; 83735; 85025; 87086; 93970; 96374; 99284; J1885

== ENCOUNTER 2019-01-30 20:31 | Inpatient (IN) | payer MEDICARE, OTHER ==
[2019-01-30 20:32] VITALS: BMI 27.4
[2019-01-30] MEDS ORDERED: Insulin Regular 1 UNITS/0.01 ML ML IV STA (20:57)
[2019-01-30] MEDS ORDERED: Sodium Chloride 0.9% 1,000 ML IV STA (20:59)
--- NOTE | 2019-01-30 21:04 | ED PDOC ---
Arrival/HPI - General Historian: Patient - History of Present Illness Narrative History of Present Illness (Text): Patient is a 58 year old female with COPD, IDDM, hypertension, asthma, hyperlipidemia, and GERD presenting with chief complaint of dizziness beginning yesterday. Patient states she checked her sugar levels at home which was >500. She was seen by PMD two days earlier in clinic at which her insulin regimen was adjusted. Also admits to nausea and polyuria. Denies fevers, chills, shortness of breath, abdominal pain, diarrhea. Time/Duration: 24 hours Symptom Onset: Sudden Symptom Course: Unchanged Context: Home <Mariah Moy - Last Filed: 01/30/19 23:50> <Jesus Dow - Last Filed: 01/31/19 19:19> - General Chief Complaint: High Blood Sugar Past Medical History - Provider Review Nursing Documentation Reviewed: Yes - Infectious Disease Hx of Infectious Diseases: None - Tetanus Immunization Tetanus Immunization: Unknown - Cardiac Hx Cardiac Disorders: Yes Hx Congestive Heart Failure: Yes Hx Hypertension: Yes Hx Pacemaker: No - Pulmonary Hx Respiratory Disorders: Yes Hx Asthma: Yes Hx Pneumonia: Yes - Neurological Hx Neurological Disorder: No Hx Paralysis: No Other/Comment: fibromyalgia - HEENT Hx HEENT Disorder: No - Renal Hx Renal Disorder: No - Endocrine/Metabolic Hx Endocrine Disorders: Yes Hx Diabetes Mellitus Type 1: Yes - Hematological/Oncological Hx Blood Disorders: No Hx Blood Transfusions: No Hx Blood Transfusion Reaction: No - Integumentary Hx Dermatological Disorder: No - Musculoskeletal/Rheumatological Hx Musculoskeletal Disorders: No Hx Falls: No - Gastrointestinal Hx Gastrointestinal Disorders: Yes Hx Gastroesophageal Reflux: Yes - Genitourinary/Gynecological Hx Genitourinary Disorders: No - Psychiatric Hx Psychophysiologic Disorder: No Hx Anxiety: Yes Hx Depression: Yes Hx Emotional Abuse: No Hx Physical Abuse: No Hx Substance Use: No - Surgical History Hx Hysterectomy: Yes Hx Orthopedic Surgery: Yes (CARPAL TUNNEL RELEASE) Other/Comment: recent b/l foot sx pt not sure what kind, carpal tunnel b/l sx - Anesthesia Hx Anesthesia: Yes Hx Anesthesia Reactions: No Hx Malignant Hyperthermia: No - Suicidal Assessment Feels Threatened In Home Enviroment: No <Mariah Moy - Last Filed: 01/30/19 23:50> Family/Social History - Physician Review Nursing Documentation Reviewed: Yes Family/Social History: No Known Family HX Smoking Status: Light Smoker < 10 Cigarettes Daily Hx Alcohol Use: No Hx Substance Use: No Hx Substance Use Treatment: No <Mariah Moy - Last Filed: 01/30/19 23:50> Allergies/Home Meds <Mariah Moy - Last Filed: 01/30/19 23:50> <PalomaJesus - Last Filed: 01/31/19 19:19> Allergies/Adverse Reactions: Allergies aspirin Adverse Reaction (Verified 01/31/19 00:25) VOMITING Home Medications: Home Meds Medication Instructions Recorded Confirmed Clopidogrel [Plavix] 75 mg PO DAILY 06/10/18 06/11/18 Furosemide 40 mg PO DAILY 06/10/18 06/11/18 Losartan Potassium 100 mg PO DAILY 06/10/18 06/11/18 Metoprolol Tartrate [Lopressor] 50 mg PO BID 06/10/18 06/11/18 Montelukast Sodium [Singulair] 10 mg PO DAILY 06/10/18 06/11/18 Famotidine [Pepcid] 40 mg PO DAILY 06/11/18 06/11/18 Insulin Aspart [Novolog] 100 unit SC ACBD 06/11/18 06/11/18 Insulin Glargine, Recombina 100 unit SC HS 06/11/18 06/11/18 [Lantus] Review of Systems - Physician Review All systems were reviewed & negative as marked: Yes - Review of Systems Respiratory: Normal Gastrointestinal: Normal Genitourinary Female: Urine Output Changes Neurological: Dizziness Endocrine: Polyuria, Polydipsia <Mariah Moy - Last Filed: 01/30/19 23:50> Physical Exam Vital Signs Reviewed: Yes Vital Signs Temp Pulse Resp BP Pulse Ox 01/30/19 20:53 97.6 F 81 18 167/105 H 99 Temperature: Afebrile Blood Pressure: Hypertensive Pulse: Regular Respiratory Rate: Normal Appearance: Positive for: Uncomfortable Pain Distress: None Mental Status: Positive for: Alert and Oriented X 3 Finger Stick Blood Glucose: 500 - Systems Exam Head: Present: Atraumatic, Normocephalic Pupils: Present: PERRL Extroacular Muscles: Present: EOMI Conjunctiva: Present: Normal Mouth: Present: Dry Respiratory/Chest: Present: Clear to Auscultation, Good Air Exchange. No: Respiratory Distress, Accessory Muscle Use Cardiovascular: Present: Regular Rate and Rhythm, Normal S1, S2 Abdomen: Present: Normal Bowel Sounds. No: Tenderness, Distention Lower Extremity: Present: Normal Inspection, NORMAL PULSES Neurological: Present: GCS=15, CN II-XII Intact, Speech Normal Skin: Present: Warm, Dry, Normal Color Psychiatric: Present: Alert, Oriented x 3, Normal Insight, Normal Concentration <Mariah Moy - Last Filed: 01/30/19 23:50> Vital Signs Temp Pulse Resp BP Pulse Ox 01/30/19 22:30 81 17 155/101 H 99 01/30/19 21:41 71 209/113 H 01/30/19 20:53 97.6 F 81 18 167/105 H 99 <Jesus Dow - Last Filed: 01/31/19 19:19> Medical Decision Making ED Course and Treatment: Impression: 58 year old female with dizziness found to have hyperglycemia Plan: - 10 units insulin IVP - 1 L NS - Zofran - CBC, CMP - EKG, troponin - Urinalysis - Reassess and disposition Prior Visits: Notes and results from previous visits were reviewed Progress Notes: 01/30/19 22:35 Blood glucose 381 Patient resting comfortably, hemodynamically stable. Discussed patient with Dr. Saucedo, who agrees to accept patient for admission. - Lab Interpretations I have reviewed the lab results: Yes - EKG Interpretation EKG Interpretation (Text): 01/30/19 23:47 NSR Interpreted by ED Physician: Yes Type: 12 lead EKG - Medication Orders Current Medication Orders: Sodium Chloride (Sodium Chloride 0.9%) 1,000 mls @ 999 mls/hr IV .Q1H1M STA Stop: 01/30/19 21:59 Insulin Human Regular (Humulin R) 10 units IV STAT STA Stop: 01/30/19 20:58 Ondansetron HCl (Zofran Inj) 4 mg IVP ONCE ONE Stop: 01/30/19 21:00 <Mariah Moy - Last Filed: 01/30/19 23:50> ED Course and Treatment: Impression: Pt seen and evaluated with medical voucher clerk. Aware and agree with HPI, clinical findings, plan, and management. Pt, whose past medical history includes COPD, IDDM, hypertension, asthma, hyperlipidemia, and GERD, presented for dizziness, nausea, and polyuria since yesterday. Noted her blood sugar has been elevated. Plan: -- EKG -- Labs, troponin -- UA -- IV fluids -- Zofran -- Insulin -- Apresoline -- Reassess and disposition Progress Notes: - Lab Interpretations Lab Results: Troponin I < 0.01 ng/mL 01/30/19 21:15 Total Bilirubin 0.3 mg/dL (0.2-1.3) 01/30/19 21:15 AST 24 U/L (14-36) 01/30/19 21:15 ALT 18 U/L (7-56) 01/30/19 21:15 Alkaline Phosphatase 113 U/L (38-126) 01/30/19 21:15 Total Protein 7.0 g/dL (5.8-8.3) 01/30/19 21:15 Albumin 3.8 g/dL (3.0-4.8) 01/30/19 21:15 Globulin 3.2 gm/dL 01/30/19 21:15 Albumin/Globulin Ratio 1.2 (1.1-1.8) 01/30/19 21:15 Urine Color Yellow (YELLOW) 01/30/19 22:16 Urine Appearance Clear (CLEAR) 01/30/19 22:16 Urine pH 6.0 (4.7-8.0) 01/30/19 22:16 Ur Specific [place] <= 1.005 (1.005-1.035) 01/30/19 22:16 Urine Protein Negative mg/dL (<30 mg/dL) 01/30/19 22:16 Urine Glucose (UA) >=1000 mg/dL (NEGATIVE) 01/30/19 22:16 Urine Ketones Negative mg/dL (NEGATIVE) 01/30/19 22:16 Urine Blood Negative (NEGATIVE) 01/30/19 22:16 Urine Nitrate Negative (NEGATIVE) 01/30/19 22:16 Urine Bilirubin Negative (NEGATIVE) 01/30/19 22:16 Urine Urobilinogen 0.2 E.U./dL (<1 E.U./dL) 01/30/19 22:16 Ur Leukocyte Esterase Negative Angela/uL (NEGATIVE) 01/30/19 22:16 - Medication Orders Current Medication Orders: Discontinued Medications Hydralazine HCl (Apresoline) 10 mg IVP ONCE ONE Stop: 01/30/19 21:08 Last Admin: 01/30/19 21:41 Dose: 10 mg IVP Administration Document 01/30/19 21:41 RD (Rec: 01/30/19 21:41 RD [id number]) Charges for Administration # of IVP Administrations 1 MAR Pulse and Blood Pressure Document 01/30/19 21:41 RD (Rec: 01/30/19 21:41 RD [id number]) Pulse Pulse Rate (60-90) 71 Blood Pressure Blood Pressure (100/60-150/90) 209/113 Sodium Chloride (Sodium Chloride 0.9%) 1,000 mls @ 999 mls/hr IV .Q1H1M STA Stop: 01/30/19 21:59 Last Admin: 01/30/19 21:43 Dose: 999 mls/hr eMAR Start Stop Document 01/30/19 21:43 RD (Rec: 01/30/19 21:43 RD [id number]) Intravenous Solution Start Date 01/30/19 Start Time 21:43 End Date 01/30/19 End time 22:43 Total Infusion Time 60 Insulin Human Regular (Humulin R) 10 units IV STAT STA Stop: 01/30/19 20:58 Last Admin: 01/30/19 21:41 Dose: 10 unit eMAR Start Stop Document 01/30/19 21:41 RD (Rec: 01/30/19 21:42 RD [id number]) Intravenous Solution Start Date 01/30/19 Start Time 21:37 End Date 01/30/19 End time 21:39 Total Infusion Time 2 MAR Blood Glucose Document 01/30/19 21:41 RD (Rec: 01/30/19 21:42 RD [id number]) Blood Glucose Finger Stick Blood Glucose (70-120) 500 Ondansetron HCl (Zofran Inj) 4 mg IVP ONCE ONE Stop: 01/30/19 21:00 Last Admin: 01/30/19 21:41 Dose: 4 mg IVP Administration Document 01/30/19 21:41 RD (Rec: 01/30/19 21:41 RD [id number]) Charges for Administration # of IVP Administrations 1 <Jesus Dow - Last Filed: 01/31/19 19:19> - PA / FANCY STITCHER / Resident Statement / has reviewed & agrees with the documentation as recorded. / has examined the patient and agrees with the treatment plan. <Jesus Dow - Last Filed: 01/31/19 19:19> Disposition/Present on Arrival - Present on Arrival Any Indicators Present on Arrival: No History of DVT/PE: No History of Uncontrolled Diabetes: No Urinary Catheter: No History of Decub. Ulcer: No History Surgical Site Infection Following: None - Disposition Have Diagnosis and Disposition been Completed?: Yes Disposition Time: 23:16 <Mariah Moy - Last Filed: 01/30/19 23:50> <Jesus Dow - Last Filed: 01/31/19 19:19> - Disposition Diagnosis: Hyperglycemia Disposition: HOSPITALIZED Patient Problems: Current Active Problems Problem Status Onset Hyperglycemia Acute Condition: STABLE
[2019-01-30 21:32] LABS: BASO # 0.04 K/mm3 (0.0-2.0); BASO % 0.5 % (0.0-3.0); EOS # 0.2 (0.0-0.7); EOS % 2.7 % (1.5-5.0); HEMOGLOBIN 13.4 g/dL (12.0-16.0); LYMPH # 3.3 (1.2-3.4); LYMPH % 43.4 % (22.0-35.0); MEAN CELL VOLUME 92.6 fl (80.0-105.0); MEAN CORPUSCULAR HEMOGLOBIN 29.9 pg (25.0-35.0); MEAN CORPUSCULAR HGB CONC 32.3 g/dl (31.0-37.0); MEAN PLATELET VOLUME 12.4 fl (7.0-11.0); MONO # 0.4 (0.1-0.6); MONO % 4.7 % (1.0-6.0); RBC 4.48 10^6/uL (3.5-6.1); RED CELL DISTRIBUTION WIDTH 13.3 % (11.5-14.5); WHITE BLOOD COUNT 7.5 10^3/uL (4.5-11.0)
[2019-01-30 21:55] LABS: TROPONIN I < 0.01 ng/mL
[2019-01-30 21:59] LABS: ALB/GLOB RATIO 1.2 (1.1-1.8); ALBUMIN 3.8 g/dL (3.0-4.8); ALT/SGPT 18 U/L (7-56); AST/SGOT 24 U/L (14-36); BLOOD UREA NITROGEN 15 mg/dL (7-21); CALCIUM 10.2 mg/dL (8.4-10.5); GFR NON-AFRICAN AMERICAN > 60
[2019-01-30 22:28] LABS: URINE BILIRUBIN NEGATIVE (NEGATIVE); URINE BLOOD NEGATIVE (NEGATIVE); URINE GLUCOSE (UA) >=1000 mg/dL (NEGATIVE); URINE LEUKOCYTE ESTERASE NEGATIVE Leu/uL (NEGATIVE); URINE PROTEIN NEGATIVE mg/dL (<30 mg/dL); URINE UROBILINOGEN 0.2 E.U./dL (<1 E.U./dL)
[2019-01-30 22:32] LABS: URINE APPEARANCE CLEAR (CLEAR); URINE COLOR YELLOW (YELLOW)
[2019-01-31] MEDS ORDERED: Simethicone 80 mg Chewtab PO STA (01:02)
--- NOTE | 2019-01-31 04:57 | CP.PCM.PN ---
Subjective - Date & Time of Evaluation Date of Evaluation: 01/31/19 Time of Evaluation: 04:54 - Subjective Subjective: To be dictated. Patient see. Lower abdominal pain. Simethicone 80 mg was given. still had pain. Received tylenol 25 minutes ago. If pain continues will give Protonix 40 mg PO Medical record was reviewed. Will order daily protonix for GI prophylaxis. Objective - Vital Signs/Intake and Output Vital Signs (last 24 hours): Temp Pulse Resp BP Pulse Ox 98.1 F 71 18 129/79 98 01/31/19 00:58 01/31/19 00:58 01/31/19 00:58 01/31/19 00:58 01/31/19 00:58 - Medications Medications: Current Medications Acetaminophen (Tylenol 325mg Tab) 650 mg PO Q4H PRN PRN Reason: Pain, Mild (1-3) Last Admin: 01/31/19 02:32 Dose: 650 mg Insulin Human Regular (Humulin R Low) 0 units SC [facility]; Protocol - Labs Labs: 01/30/19 21:15 01/30/19 21:15
[2019-01-31] MEDS ORDERED: Insulin Reg-LOW-Coverage SC SCH (07:30)
[2019-01-31] MEDS: Insulin Reg-LOW-Coverage SC SCH ×3 (12:36→22:30)
[2019-01-31] MEDS: Albuterol-Ipratrop 3 mg / 0.5 (3 ml) UD IH SCH ×2 (13:41→19:24)
--- NOTE | 2019-01-31 14:26 | RAD ---
Date of service: 01/30/2019 HISTORY: Hypertension. COMPARISON: Comparison made with prior chest 06/25/2018. TECHNIQUE: 1 view obtained. FINDINGS: LUNGS: No active pulmonary disease. PLEURA: No significant pleural effusion identified, no pneumothorax apparent. CARDIOVASCULAR: No aortic atherosclerotic calcification present. Normal cardiac size. No pulmonary vascular congestion. OSSEOUS STRUCTURES: No significant abnormalities. VISUALIZED UPPER ABDOMEN: Normal. OTHER FINDINGS: None. IMPRESSION: No active disease.
--- NOTE | 2019-01-31 15:06 | CON ---
DATE: 01/31/2019 PULMONARY CONSULTATION REFERRING PHYSICIAN: Malinda Saucedo MD REASON FOR CONSULTATION: Chronic lung disease, comes in with uncontrolled diabetes, and may have sleep apnea syndrome. HISTORY OF PRESENT ILLNESS: This is a 58-year-old female with past medical history significant for hypertension, chronic obstructive lung disease, diabetes, GERD, comes in with not feeling well, and checked her blood sugar which is too high. Comes into emergency room, found to have hyperglycemia, admitted loud snoring, daytime sleepy, still active smoker, and have cough shortness of breath. No hemoptysis, no emesis, no hematuria, and no diarrhea reported. PAST MEDICAL HISTORY: As per history of present illness. ALLERGIES: NONE KNOWN. SOCIAL HISTORY: Active smoker. Denies any alcohol abuse. FAMILY HISTORY: No significant cardiopulmonary disease reported. MEDICATIONS: She is on Cozaar 100 mg daily, DuoNeb every 6 hours, Ecotrin 81 mg daily, insulin coverage, Lasix 40 mg twice a day, Levemir 12 units subcutaneously a.c. and bedtime, metoprolol tartrate 50 mg twice a day, metformin 600 mg every 6 hours, Pepcid 20 mg daily, 5 mg daily, Singulair 10 mg daily, Tylenol p.r.n. basis, hydralazine 10 mg IV p.r.n,, Cozaar is 100 mg daily, albuterol and Atrovent nebulizer every 6 hours, aspirin 81 mg daily, also on insulin, Lasix is 40 mg twice a day, metoprolol tartrate 50 mg twice a day, Motrin 600 mg every 6 hours, simethicone 80 mg daily, Lasix 40 mg daily was given, and Singulair 10 mg daily. REVIEW OF SYSTEMS: No headache. No , admitted to have snoring, daytime sleepiness and tiredness. cough and shortness of breath. No chest pain. No nausea. No vomiting. No diarrhea. No leg pain or leg swelling. PHYSICAL EXAMINATION: GENERAL: Lying in bed . VITAL SIGNS: Temperature is 98, heart rate 68, respiratory rate 18, blood pressure 131/84, and pulse ox 98% on room air. HEENT: Moist mucous membrane. Crowded airway. Mallampati score is 4. NECK: Supple. No JVD. CARDIOPULMONARY: Has few rhonchi. HEART: S1 and S2. ABDOMEN: Soft and nontender. No organomegaly. EXTREMITIES: No edema. NEUROLOGIC: Awake, alert, and follows simple commands. LABORATORY DATA: Hemoglobin 13.4, hematocrit 41.5, WBC 7.5, and platelet count is 277. INR 1.02 and PTT 30. blood sugar this morning 292, yesterday was more than 500. Sodium 135, potassium 4.9, chloride 95, bicarbonate 30, BUN 15, creatinine 0.7, calcium is 10.2, and total bilirubin 0.3. AST 24, ALT 18, alk phos is 113, and albumin is 3.8. Microbiology; urine from 01/27/2019 shows Gram-positive cocci. ASSESSMENT AND PLAN: Chronic obstructive lung disease, active smoker, uncontrolled diabetes, history of gastroesophageal reflux disease, and he may have sleep apnea syndrome. I had a long discussion with the patient about smoking and its risk, she express understanding and I also spoke about sleep apnea and its relation to diabetes, hypertension, and further stroke, and she express understanding. We will keep her head elevated at 45 degrees. Avoid nocturnal sedation, gastric prophylaxis, deep venous thrombosis prophylaxis. Followup blood sugar. Thank you and we will follow with you. Jose G Sprague MD
[2019-01-31] MEDS ORDERED: Insulin Detemir 100 units/ml Vial (Levemir) SC SCH (22:00)
[2019-01-31] MEDS ORDERED: INSULIN GLARGINE 100 UNIT SC SCH (22:00)
--- NOTE | 2019-01-31 22:51 | CON ---
DATE OF CONSULTATION: 01/31/2019 HISTORY OF PRESENT ILLNESS: The patient is a 58-year-old female who has a history of hypertension, diabetes mellitus, COPD, hyperlipidemia, presented because of dizziness and hyperglycemia. The measured blood sugar at home was more than 500. The patient is unaware of any prior cardiac history. A Myoview stress test performed in 08/2014 was negative. The patient denies any chest pain at this time. MEDICATIONS: Cozaar 100 mg once a day, albuterol inhaler every 6 hours, aspirin 81 mg once a day, Lasix 40 mg intravenously twice a day, Lopressor 50 mg twice a day, Pepcid 40 mg once a day, Plavix 75 mg once a day, Singulair 10 mg once a day. REVIEW OF SYSTEMS: No fever or chills. No syncope or fall. PHYSICAL EXAMINATION: GENERAL: The patient is a middle-aged female who does not appear to be in any distress. VITAL SIGNS: Blood pressure 131/84, heart rate 68, temperature 98.2, respirations 18. HEENT: Normocephalic. CHEST: Clear. HEART: S1 and S2 regular. ABDOMEN: Soft. EXTREMITIES: No edema. LABORATORY DATA: Today's hemoglobin/hematocrit, white count and platelet count are within normal limits. Admitting SMA-7: Sodium 135, potassium 4.9, chloride 95, CO2 of 30, glucose 617, BUN 15, creatinine 0.7. One set of troponin is negative. Admitting EKG revealed normal sinus rhythm with sinus arrhythmia. Echocardiograph study performed in 10/2015 revealed normal chamber size and normal ejection fraction, trace MR and trace TR. Admitting chest x-ray was unremarkable. ASSESSMENT: 1. Exacerbation of chronic obstructive lung disease. 2. Uncontrolled diabetes mellitus. 3. Hypertension. RECOMMENDATIONS: Continue Cozaar 100 mg once a day, aspirin 81 mg once a day, Lasix 40 ml intravenously twice a day, Lopressor 50 mg twice a day, Singulair 10 mg once a day beside insulin and oral hypoglycemic agents. Tha Mazariegos MD
--- NOTE | 2019-01-31 23:45 | HP ---
DATE OF EXAM: 01/31/2019 The patient was seen and examined at the bedside on 01/31/2019. CHIEF COMPLAINT: Dizziness, fatigue, and tired. HISTORY OF PRESENT ILLNESS: Ms. Alena Ashley is a 58-year-old female with history of COPD, history of diabetes mellitus, hypertension, asthma, hypercholesterolemia, GERD, and dyspepsia, who came with chief complaint of dizziness. beginning one day before admission, feeling fatigued, and tired. The patient states that she checked her sugar level at home, which was more than 500, but in the hospital, her sugar level is more than 600. Actually, the patient was seen in my office 2 days ago and her sugar was high, we adjusted her insulin. The patient has follow up with the control technician, but she saw her control technician 3 months ago, now she is complaining about abdominal pain, nausea, and polyuria. No fever. No chills. No hematuria or hematochezia. PAST MEDICAL HISTORY: As above; COPD, insulin-dependent diabetes mellitus, hypertension, hypercholesterolemia, GERD, dyspepsia, uncontrolled diabetes mellitus type 2, insulin requiring, history of asthma, fibromyalgia, anxiety, and hysterectomy. FAMILY HISTORY: Father and mother noncontributory. HABITS: Light smoker less than 10 cigarettes per day. No alcohol. No substance abuse. ALLERGIES: THE PATIENT IS ALLERGIC WITH ASPIRIN. HOME MEDICATIONS: Reviewed by me. Plavix, furosemide, potassium, Lopressor, Singulair, Pepcid, NovoLog, and Lantus. REVIEW OF SYSTEMS: The patient was seen and examined at the bedside in her room. Her son was on the bedside. The patient is still feeling fatigued and tired. Complaining about abdominal pain. Dizziness. No fever. No chills. No hematuria or hematochezia. Complaining about polyuria and polydipsia. PHYSICAL EXAMINATION: VITAL SIGNS: Temperature 97.6, pulse 81, respiratory rate 18, blood pressure 167/105, and pulse oximetry 99%. HEENT: Head; normocephalic and atraumatic. Eyes; PERRLA. Extraocular muscles intact. Conjunctivae clear. Nose patent. Mucous membranes moist. NECK: Supple. No carotid bruits. No JVD. No thyromegaly. CHEST: Bilaterally symmetrical. HEART: S1 and S2 positive. LUNGS: Clear to auscultation. ABDOMEN: Soft. Bowel sounds present. No organomegaly. EXTREMITIES: No edema. No cyanosis. NEUROLOGIC: The patient is awake and alert, moving all four extremities. No focal deficits. LABORATORY DATA: White blood cells 7.5, hemoglobin 13.5, hematocrit 41.5, and platelets 277. Sodium 137, potassium 4.9, BUN 15, creatinine 0.7, and glucose more than 617. ASSESSMENT AND PLAN: Ms. Alena Ashley is a 58-year-old lady with insulin-dependent diabetes mellitus, uncontrolled; hypochloremia; history of hypertension; chronic obstructive pulmonary disease; gastroesophageal reflux disease; dyspepsia; and had abdominal pain. Sugar is not very well controlled. We will put Endocrinology consult. Sleep apnea syndrome. Dr. Sprague had a long discussion done with the patient, urged to quit smoking. Gastrointestinal and deep vein thrombosis prophylaxes. Repeat labs. We will follow up. Malinda Saucedo MD
[2019-02-01] MEDS ORDERED: Insulin Regular 1 UNITS/0.01 ML ML SC STA (02:05)
--- NOTE | 2019-02-01 02:20 | CON ---
DATE: 02/01/2019 ENDOCRINOLOGY CONSULT LOCATION: Room 371. HISTORY OF PRESENT ILLNESS: This is a 58-year-old female with known history of type 2 insulin-requiring diabetes, presenting here with marked hyperglycemic accelerations and associated progressive dizziness and lightheadedness and is now being referred for diabetic evaluation and management. PAST MEDICAL HISTORY: History of type 2 insulin-requiring diabetes, on a combination of Levemir and Humalog given at variable doses at home, and she can even give as much as 60 to 100 units of Levemir and still continues to have hyperglycemic accelerations as noted. History of hypertension and dyslipidemia, history of chronic obstructive lung disease with bronchial asthma, history of chronic gastritis and GERD with episodic abdominal pain and diarrhea. FAMILY HISTORY: Positive for diabetes and hypertension. SOCIAL HISTORY: The patient has a supportive family. No known substance use. REVIEW OF SYSTEMS: As mentioned above, admits to generalized body weakness with progressive bouts of dizziness and lightheadedness, worse on the day of admission. Also admits to recent bifrontal headaches and visual blurring as noted. PHYSICAL EXAMINATION: GENERAL: This is an average built female in no apparent distress. VITAL SIGNS: Blood pressure of 140/80; pulse of 70 beats per minute, regular; temperature 98; respirations 20; height is 5 feet 5 inches, weight is 165 pounds. HEENT: Head normocephalic. Eyes anicteric with pink conjunctivae. Funduscopy not possible at this time. Ears, nose, and throat otherwise normal. NECK: Supple. Thyroid gland is normal sized. No carotid bruits or cervical adenopathy. CARDIOPULMONARY: Some adynamic precordium. S1, S2 is rapid and regular. LUNGS: Clear to auscultation. ABDOMEN: Flat, soft with positive bowel sounds. EXTREMITIES: No peripheral edema. Pulses are +2 bilaterally. LABORATORIES: Her chemistries, BUN of 15, sodium 135, potassium 4.9, chloride 95, CO2 of 30, glucose 617, and creatinine 0.7. Her glucose levels have ranged from 301 to 329 and 381 mg/dL. It was 328 at bedtime tonight. ASSESSMENT: This is a 58-year-old female with uncontrolled and decompensated type 2 insulin-requiring diabetes with marked hyperglycemic accelerations related to the intercurrent subtherapeutic insulin regimen as noted. She also has diabetic polyneuropathy with lower extremity paresthesias as noted. PLAN OF MANAGEMENT: We will modify her current insulin regimen to a more physiologic basal and bolus insulin drug combination as ordered. We will modify her basal insulin with Levemir to be given as 24 units subcu at bedtime daily to start tomorrow night. We will modify also her current prandial insulin and change the regular insulin to Humalog which is more rapid acting and more physiological in terms of meal time insulin coverage as noted. We will add Humalog given as 12 units b.i.d. before meals to start at breakfast time tomorrow morning as ordered. We will obtain serial chemistries and supplement accordingly as needed. We will follow. Prabha Carlson MD
[2019-02-01] MEDS: Albuterol-Ipratrop 3 mg / 0.5 (3 ml) UD IH SCH ×4 (02:36→19:56)
[2019-02-01 07:08] LABS: HEMOGLOBIN 14.2 g/dL (12.0-16.0); MEAN CELL VOLUME 90.1 fl (80.0-105.0); MEAN CORPUSCULAR HEMOGLOBIN 29.3 pg (25.0-35.0); MEAN CORPUSCULAR HGB CONC 32.5 g/dl (31.0-37.0); MEAN PLATELET VOLUME 12.1 fl (7.0-11.0); RBC 4.85 10^6/uL (3.5-6.1); RED CELL DISTRIBUTION WIDTH 13.3 % (11.5-14.5); WHITE BLOOD COUNT 7.6 10^3/uL (4.5-11.0)
[2019-02-01 07:13] LABS: IRON 101 ug/dL (45-180)
[2019-02-01 07:14] LABS: AMYLASE 80 U/L (35-125); BLOOD UREA NITROGEN 29 mg/dL (7-21); CALCIUM 10.2 mg/dL (8.4-10.5); GFR NON-AFRICAN AMERICAN > 60; HDL CHOLESTEROL 37 mg/dL (29-60); LIPASE 135 U/L (23-300)
--- NOTE | 2019-02-01 07:18 | CARD ---
APPROVED REPORT Date of service: 01/30/2019 EKG Measurement Heart [id number] <Conclusion> Normal sinus rhythm with sinus arrhythmia Normal ECG
[2019-02-01 07:22] LABS: % IRON SATURATION 32 % (20-55); TOTAL IRON BINDING CAPACITY 318 ug/dL (265-497)
[2019-02-01 07:23] LABS: LDL CHOLESTEROL 202 mg/dL (0-129)
[2019-02-01] MEDS: Insulin Lispro 1 UNITS/0.01 ML SC SCH ×3 (08:24→16:52)
--- NOTE | 2019-02-01 08:26 | CP.PCM.CON ---
<SommerValentine - Last Filed: 02/01/19 18:15> History of Present Illness - History of Present Illness History of Present Illness: Valentine Novoa, PGY2, GI Consult Note for Dr Torres: Reason for consult: abdominal pain This is a 58 year old female with GERD, reflux esophagitis, hypertension, fi bromyalgia, diabetes mellitus, anxiety, depression, asthma, COPD, is here for dizziness that started the day prior to arrival. Patient had a recent change in her insulin regimen as per her PMD. Patient also reports one episode of vomiting food on Friday, patient reports the onset of epigastric pain that radiates to right upper back , achy, intermittent. Patient reports a decreased appetite as well. Her last EGD 05/2018: non-severe reflux esophagitis. gastritis. Single papule (nodule) found in stomach. Neg for H pylori. Last colonoscopy was on 05/[address] Mckee: inadequate bowel prep. internal hemorrhoids. Recommended repeat colonoscopy in 6 months. Of note, she also had a liver CT 10/2016 which showed two hemangiomas, 1.7 cm and 2.8 cm masses. In ED, patient was afebrile with stable vitals, was found to have BG 617, no acidosis or anion gap. Patient was admitted for hyperglycemia, with Dr Carlson (endocrinology) adjusting her insulin regimen with her BG now in mid 200s. Currently, patient states that she still has had intermittent achy epigastric pain, radiating to right upper back region. Reports decreased appetite, constipation for past 2 days. Denies urinary symptoms, UA negative in ED. PMHx: hypertension, fibromyalgia, diabetes mellitus, anxiety, depression, asthma, COPD PSHx: hysterectomy, carpal tunnel Allergies: NKDA Social Hx: NO tobacco, EtOH, or illicit drug use Family History: denies Review of Systems - Review of Systems All systems: reviewed and no additional remarkable complaints except Review of Systems: as per HPI. Past Patient History - Infectious Disease Hx of Infectious Diseases: None - Tetanus Immunizations Tetanus Immunization: Unknown - Past Medical History & Family History Past Medical History?: Yes - Past Social History Smoking Status: Light Smoker < 10 Cigarettes Daily - CARDIAC Hx Cardiac Disorders: Yes Hx Hypertension: Yes - PULMONARY Hx Respiratory Disorders: Yes Hx Asthma: Yes - NEUROLOGICAL Hx Neurological Disorder: No - HEENT Hx HEENT Problems: No - RENAL Hx Chronic Kidney Disease: No - ENDOCRINE/METABOLIC Hx Diabetes Mellitus Type 2: Yes - HEMATOLOGICAL/ONCOLOGICAL Hx Anemia: Yes - INTEGUMENTARY Hx Dermatological Problems: No - MUSCULOSKELETAL/RHEUMATOLOGICAL Hx Falls: No - GASTROINTESTINAL Hx Gastroesophageal Reflux: Yes - GENITOURINARY/GYNECOLOGICAL Other/Comment: Hysterectomy 2009 - PSYCHIATRIC Hx Depression: Yes Hx Substance Use: No - SURGICAL HISTORY Hx Surgeries: Yes (foot sx, hysterectomy) - ANESTHESIA Hx Anesthesia: Yes Hx Anesthesia Reactions: No Hx Malignant Hyperthermia: No Meds Allergies/Adverse Reactions: Allergies Allergy/AdvReac Type Severity Reaction Status Date / Time aspirin AdvReac VOMITING Verified 01/31/19 00:25 - Medications Medications: Current Medications Acetaminophen (Tylenol 325mg Tab) 650 mg PO Q4H PRN PRN Reason: Pain, Mild (1-3) Last Admin: 01/31/19 02:32 Dose: 650 mg Albuterol/Ipratropium (Duoneb 3 Mg/0.5 Mg (3 Ml) Ud) 3 ml IH [id number] [facility] Last Admin: 02/01/19 02:36 Dose: 3 ml Aspirin (Ecotrin) 81 mg PO DAILY [facility] Last Admin: 01/31/19 10:51 Dose: Not Given Clopidogrel Bisulfate (Plavix) 75 mg PO DAILY [facility] Last Admin: 01/31/19 10:44 Dose: 75 mg Famotidine (Pepcid) 40 mg PO DAILY [facility] Last Admin: 01/31/19 10:44 Dose: 40 mg Furosemide (Lasix) 40 mg IVP Q12 [facility] Last Admin: 01/31/19 22:32 Dose: 40 mg Ibuprofen (Motrin Tab) 600 mg PO Q6 [facility] Last Admin: 02/01/19 05:30 Dose: 600 mg Insulin Detemir (Levemir) 24 unit SC HS [facility] Insulin Human Lispro (Humalog) 12 units SC AC [facility] Last Admin: 02/01/19 08:24 Dose: 12 units Losartan Potassium (Cozaar) 100 mg PO DAILY [facility] Last Admin: 01/31/19 10:44 Dose: 100 mg Metoprolol Tartrate (Lopressor) 50 mg PO BID [facility] Last Admin: 01/31/19 17:02 Dose: Not Given Montelukast Sodium (Singulair) 10 mg PO DAILY [facility] Last Admin: 01/31/19 10:44 Dose: 10 mg Physical Exam - Constitutional Appears: Non-toxic, No Acute Distress - Head Exam Head Exam: ATRAUMATIC, NORMOCEPHALIC - Eye Exam Eye Exam: EOMI, PERRL. absent: Conjunctival injection, Nystagmus, Scleral icterus Pupil Exam: NORMAL ACCOMODATION, PERRL. absent: Irregular, Miosis, Unequal - ENT Exam ENT Exam: Mucous Membranes Moist - Neck Exam Neck exam: Positive for: Full Rom - Respiratory Exam Respiratory Exam: Clear to Auscultation Bilateral, NORMAL BREATHING PATTERN. absent: Accessory Muscle Use, Rhonchi, Wheezes - Cardiovascular Exam Cardiovascular Exam: RRR, +S1, +S2. absent: Systolic Murmur - GI/Abdominal Exam GI & Abdominal Exam: Normal Bowel Sounds, Soft, Tenderness (mild tenderness in epigastric region, and RUQ). absent: Distended, Firm, Guarding, Rebound, Rigid - Extremities Exam Extremities exam: Positive for: normal inspection. Negative for: calf tenderness, pedal edema - Back Exam Back exam: NORMAL INSPECTION - Neurological Exam Neurological exam: Alert, Oriented x3 - Psychiatric Exam Psychiatric exam: Normal Mood - Skin Skin Exam: Dry, Normal Color, Warm Results - Vital Signs Recent Vital Signs: Last Vital Signs Temp 97.7 F 02/01/19 08:09 Pulse 59 L 02/01/19 08:09 Resp 18 02/01/19 08:09 BP 153/75 H 02/01/19 08:09 Pulse Ox 99 02/01/19 08:09 - Labs Result Diagrams: 02/01/19 06:30 02/01/19 06:30 Labs: Laboratory Results - last 24 hr 01/31/19 01/31/19 01/31/19 08:27 11:31 16:24 WBC RBC Hgb Hct MCV MCH MCHC RDW Plt Count MPV Sodium Potassium Chloride Carbon Dioxide Anion Gap BUN Creatinine Est GFR ( Amer) Est GFR (Non-Af Amer) POC Glucose (mg/dL) 245 H 292 H 323 H Random Glucose Calcium Iron TIBC % Saturation Triglycerides Cholesterol LDL Cholesterol Direct HDL Cholesterol Amylase Lipase TSH 3rd Generation 01/31/19 02/01/19 02/01/19 21:06 01:56 06:30 WBC RBC Hgb Hct MCV MCH MCHC RDW Plt Count MPV Sodium 136 Potassium 4.4 Chloride 98 Carbon Dioxide 31 Anion Gap 11 BUN 29 H Creatinine 0.8 Est GFR ( Amer) > 60 Est GFR (Non-Af Amer) > 60 POC Glucose (mg/dL) 328 H 429 H* Random Glucose 262 H Calcium 10.2 Iron TIBC % Saturation Triglycerides 152 Cholesterol 279 H LDL Cholesterol Direct 202 H HDL Cholesterol 37 Amylase 80 Lipase 135 TSH 3rd Generation 02/01/19 02/01/19 02/01/19 06:30 06:30 06:30 WBC 7.6 RBC 4.85 Hgb 14.2 Hct 43.7 MCV 90.1 MCH 29.3 MCHC 32.5 RDW 13.3 Plt Count 281 MPV 12.1 H Sodium Potassium Chloride Carbon Dioxide Anion Gap BUN Creatinine Est GFR ( Amer) Est GFR (Non-Af Amer) POC Glucose (mg/dL) Random Glucose Calcium Iron 101 TIBC 318 % Saturation 32 Triglycerides Cholesterol LDL Cholesterol Direct HDL Cholesterol Amylase Lipase TSH 3rd Generation 1.21 02/01/19 07:12 WBC RBC Hgb Hct MCV MCH MCHC RDW Plt Count MPV Sodium Potassium Chloride Carbon Dioxide Anion Gap BUN Creatinine Est GFR ( Amer) Est GFR (Non-Af Amer) POC Glucose (mg/dL) 248 H Random Glucose Calcium Iron TIBC % Saturation Triglycerides Cholesterol LDL Cholesterol Direct HDL Cholesterol Amylase Lipase TSH 3rd Generation Assessment & Plan - Assessment and Plan (Free Text) Assessment: # Epigastric pain, radiating to right upper back 2/2 GERD (from vomiting 2 days ago) vs esophagitis vs PUD vs chronic constipation # Constipation # Hyperglycemia # Uncontrolled DM # HTN # Fibromyalgia # Anxiety # COPD # Depression - Recommend Protonix 40 IV daily in AM, can continue Pepcid at nighttime. - Will switch to clear liquid diet as patient is complaining of abd pain - Will order CAT abd pelvis with PO/IV contrast (will make it multiphasic - to evaluate liver lesions seen on prior imaging). - Start Miralax daily for constipation - Abd US, r/o gallstones - Avoid NSAIDs, narcotic to decrease risk of ulceration, gastroparesis - Control diabetes, Dr Carlson's recs appreciated - Will continue to follow clinically - Further recs per Dr Torres. Case seen and discussed with Dr Torres. <Arpit Torres V - Last Filed: 02/01/19 23:56> Meds - Medications Medications: Current Medications Acetaminophen (Tylenol 325mg Tab) 650 mg PO Q4H PRN PRN Reason: Pain, Mild (1-3) Last Admin: 01/31/19 02:32 Dose: 650 mg Albuterol/Ipratropium (Duoneb 3 Mg/0.5 Mg (3 Ml) Ud) 3 ml IH [id number] [facility] Last Admin: 02/01/19 19:56 Dose: 3 ml Aspirin (Ecotrin) 81 mg PO DAILY [facility] Last Admin: 02/01/19 10:18 Dose: Not Given Clopidogrel Bisulfate (Plavix) 75 mg PO DAILY [facility] Last Admin: 02/01/19 10:13 Dose: 75 mg Duloxetine HCl (Cymbalta) 20 mg PO DAILY [facility] Last Admin: 02/01/19 16:52 Dose: 20 mg Famotidine (Pepcid) 40 mg PO HS [facility] Last Admin: 02/01/19 22:13 Dose: 40 mg Furosemide (Lasix) 40 mg IVP Q12 [facility] Last Admin: 02/01/19 23:41 Dose: Not Given Ibuprofen (Motrin Tab) 600 mg PO Q6 PRN PRN Reason: Pain, moderate (4-7) Insulin Detemir (Levemir) 24 unit SC HS [facility] Last Admin: 02/01/19 22:14 Dose: 24 units Insulin Human Lispro (Humalog) 12 units SC AC [facility] Last Admin: 02/01/19 16:52 Dose: 12 units Losartan Potassium (Cozaar) 100 mg PO DAILY [facility] Last Admin: 02/01/19 10:14 Dose: 100 mg Metoprolol Tartrate (Lopressor) 50 mg PO BID [facility] Last Admin: 02/01/19 17:18 Dose: 50 mg Montelukast Sodium (Singulair) 10 mg PO DAILY [facility] Last Admin: 02/01/19 10:13 Dose: 10 mg Pantoprazole Sodium (Protonix Inj) 40 mg IVP DAILY [facility] Last Admin: 02/01/19 12:15 Dose: 40 mg Polyethylene Glycol (Miralax) 17 gm PO DAILY [facility] Last Admin: 02/01/19 12:16 Dose: 17 gm Zaleplon (Sonata) 5 mg PO HS [facility] Last Admin: 02/01/19 22:13 Dose: 5 mg Results - Vital Signs Recent Vital Signs: Last Vital Signs Temp 98.3 F 02/01/19 17:55 Pulse 55 L 02/01/19 17:55 Resp 19 02/01/19 17:55 BP 106/68 02/01/19 23:41 Pulse Ox 99 02/01/19 17:55 - Labs Result Diagrams: 02/01/19 06:30 02/01/19 06:30 Labs: Laboratory Results - last 24 hr 02/01/19 02/01/19 02/01/19 01:56 06:30 06:30 WBC RBC Hgb Hct MCV MCH MCHC RDW Plt Count MPV Sodium 136 Potassium 4.4 Chloride 98 Carbon Dioxide 31 Anion Gap 11 BUN 29 H Creatinine 0.8 Est GFR ( Amer) > 60 Est GFR (Non-Af Amer) > 60 POC Glucose (mg/dL) 429 H* Random Glucose 262 H Hemoglobin A1c Calcium 10.2 Iron 101 TIBC 318 % Saturation 32 Triglycerides 152 Cholesterol 279 H LDL Cholesterol Direct 202 H HDL Cholesterol 37 Amylase 80 Lipase 135 Vitamin B12 531 Folate 8.2 TSH 3rd Generation 02/01/19 02/01/19 02/01/19 06:30 06:30 06:30 WBC 7.6 RBC 4.85 Hgb 14.2 Hct 43.7 MCV 90.1 MCH 29.3 MCHC 32.5 RDW 13.3 Plt Count 281 MPV 12.1 H Sodium Potassium Chloride Carbon Dioxide Anion Gap BUN Creatinine Est GFR ( Amer) Est GFR (Non-Af Amer) POC Glucose (mg/dL) Random Glucose Hemoglobin A1c 12.0 H Calcium Iron TIBC % Saturation Triglycerides Cholesterol LDL Cholesterol Direct HDL Cholesterol Amylase Lipase Vitamin B12 Folate TSH 3rd Generation 1.21 02/01/19 02/01/19 02/01/19 07:12 11:16 16:38 WBC RBC Hgb Hct MCV MCH MCHC RDW Plt Count MPV Sodium Potassium Chloride Carbon Dioxide Anion Gap BUN Creatinine Est GFR ( Amer) Est GFR (Non-Af Amer) POC Glucose (mg/dL) 248 H 245 H 440 H* Random Glucose Hemoglobin A1c Calcium Iron TIBC % Saturation Triglycerides Cholesterol LDL Cholesterol Direct HDL Cholesterol Amylase Lipase Vitamin B12 Folate TSH 3rd Generation 02/01/19 02/01/19 19:41 21:44 WBC RBC Hgb Hct MCV MCH MCHC RDW Plt Count MPV Sodium Potassium Chloride Carbon Dioxide Anion Gap BUN Creatinine Est GFR ( Amer) Est GFR (Non-Af Amer) POC Glucose (mg/dL) 177 H 257 H Random Glucose Hemoglobin A1c Calcium Iron TIBC % Saturation Triglycerides Cholesterol LDL Cholesterol Direct HDL Cholesterol Amylase Lipase Vitamin B12 Folate TSH 3rd Generation Attending/Attestation - Attestation I have personally seen and examined this patient.: Yes I have fully participated in the care of the patient.: Yes I have reviewed all pertinent clinical information: Yes Notes (Text): p 02/01/19 23:56
--- NOTE | 2019-02-01 08:33 | CP.PCM.PN ---
Subjective - Date & Time of Evaluation Date of Evaluation: 02/01/19 Time of Evaluation: 06:20 - Subjective Subjective: Awake,, alert, no distress, denies chest pain Reason for consultation and follow up: Cardiac evaluation and follow up; history of hypertension, diabetes,hyperlipidemia, COPD, admitted for uncontrolled glucose Seen and examined by me and Dr. Martinez Objective - Vital Signs/Intake and Output Vital Signs (last 24 hours): Temp Pulse Resp BP Pulse Ox 97.7 F 59 L 18 153/75 H 99 02/01/19 08:09 02/01/19 08:09 02/01/19 08:09 02/01/19 08:09 02/01/19 08:09 - Medications Medications: Current Medications Acetaminophen (Tylenol 325mg Tab) 650 mg PO Q4H PRN PRN Reason: Pain, Mild (1-3) Last Admin: 01/31/19 02:32 Dose: 650 mg Albuterol/Ipratropium (Duoneb 3 Mg/0.5 Mg (3 Ml) Ud) 3 ml IH [id number] [facility] Last Admin: 02/01/19 02:36 Dose: 3 ml Aspirin (Ecotrin) 81 mg PO DAILY [facility] Last Admin: 01/31/19 10:51 Dose: Not Given Clopidogrel Bisulfate (Plavix) 75 mg PO DAILY [facility] Last Admin: 01/31/19 10:44 Dose: 75 mg Famotidine (Pepcid) 40 mg PO DAILY [facility] Last Admin: 01/31/19 10:44 Dose: 40 mg Furosemide (Lasix) 40 mg IVP Q12 [facility] Last Admin: 01/31/19 22:32 Dose: 40 mg Ibuprofen (Motrin Tab) 600 mg PO Q6 [facility] Last Admin: 02/01/19 05:30 Dose: 600 mg Insulin Detemir (Levemir) 24 unit SC HS [facility] Insulin Human Lispro (Humalog) 12 units SC AC [facility] Last Admin: 02/01/19 08:24 Dose: 12 units Losartan Potassium (Cozaar) 100 mg PO DAILY [facility] Last Admin: 01/31/19 10:44 Dose: 100 mg Metoprolol Tartrate (Lopressor) 50 mg PO BID [facility] Last Admin: 01/31/19 17:02 Dose: Not Given Montelukast Sodium (Singulair) 10 mg PO DAILY [facility] Last Admin: 01/31/19 10:44 Dose: 10 mg - Labs Labs: 02/01/19 06:30 02/01/19 06:30 - Constitutional Appears: Non-toxic, No Acute Distress - Head Exam Head Exam: NORMAL INSPECTION, NORMOCEPHALIC - Eye Exam Eye Exam: Normal appearance Pupil Exam: NORMAL ACCOMODATION - ENT Exam ENT Exam: Mucous Membranes Moist, Normal Exam - Respiratory Exam Respiratory Exam: Decreased Breath Sounds, Clear to Ausculation Bilateral, NORMAL BREATHING PATTERN - Cardiovascular Exam Cardiovascular Exam: REGULAR RHYTHM, +S1, +S2 - GI/Abdominal Exam GI & Abdominal Exam: Soft, Normal Bowel Sounds - Extremities Exam Extremities Exam: Full ROM, Normal Capillary Refill - Neurological Exam Neurological Exam: Alert, Awake, Oriented x3 - Psychiatric Exam Psychiatric exam: Normal Affect, Normal Mood - Skin Skin Exam: Dry, Normal Color, Warm Assessment and Plan - Assessment and Plan (Free Text) Assessment: a 58 year old female who came in to the ER due to dizziness, glucose checked and it was above 500mg/dl. History of COPD,insulin dependent diabetes, hypertension, asthma, hyperlipidemia, and GERD. She was seen by PMD 2 days prior to admission with elevated glucose and adjusted insulin dosage. Denies chest pain or shortness of breath. EKG showed normal sinus rhythm. Stress test done on 08/19/14 showed LVEF 67%, normal result, no ischemia. MUGA done on 07/14/15 showed LVEF 70%. Echo done on 11/15/15 sgowed LVEF 70%, mild MR/TR.normal chambers. Will repeat echo. HbgA1c. Cardiac status stable. Admitted for uncontrolled diabetes. Plan: Denies chest pain Heart rate controlled Blood pressure controlled Echo to evaluate LV function Control glucose On ASA 81 mg daily,Plavix 75 mg daily,Lasix 40 mg daily, Cozaar 100 mg daily, lopressor 50 mg BID continue current medications Continue current treatment Diet modifications Will follow up Plan and treatment discussed with Dr. Martinez
[2019-02-01] MEDS: POLYETHYLENE GLYCOL 3350 17 GM/Dose PACKET PO SCH (12:16)
[2019-02-01 13:45] LABS: FOLATE 8.2 ng/mL
--- NOTE | 2019-02-01 16:17 | CP.PCM.APN ---
Subjective - Date & Time of Evaluation Date of Evaluation: 02/01/19 Time of Evaluation: 10:00 - Subjective Subjective: Pt. seen sitting up in bed, observed to be crying, not communicating, no acute distress. Objective - Vital Signs/Intake and Output Vital Signs (last 24 hours): Temp Pulse Resp BP Pulse Ox 97.7 F 86 18 132/83 99 02/01/19 08:09 02/01/19 10:14 02/01/19 08:09 02/01/19 10:14 02/01/19 08:09 - Medications Medications: Current Medications Acetaminophen (Tylenol 325mg Tab) 650 mg PO Q4H PRN PRN Reason: Pain, Mild (1-3) Last Admin: 01/31/19 02:32 Dose: 650 mg Albuterol/Ipratropium (Duoneb 3 Mg/0.5 Mg (3 Ml) Ud) 3 ml IH [id number] [facility] Last Admin: 02/01/19 13:13 Dose: 3 ml Aspirin (Ecotrin) 81 mg PO DAILY [facility] Last Admin: 02/01/19 10:18 Dose: Not Given Clopidogrel Bisulfate (Plavix) 75 mg PO DAILY [facility] Last Admin: 02/01/19 10:13 Dose: 75 mg Duloxetine HCl (Cymbalta) 20 mg PO DAILY [facility] Famotidine (Pepcid) 40 mg PO HS [facility] Furosemide (Lasix) 40 mg IVP Q12 [facility] Last Admin: 02/01/19 10:14 Dose: 40 mg Ibuprofen (Motrin Tab) 600 mg PO Q6 PRN PRN Reason: Pain, moderate (4-7) Insulin Detemir (Levemir) 24 unit SC HS [facility] Insulin Human Lispro (Humalog) 12 units SC AC [facility] Last Admin: 02/01/19 12:15 Dose: 12 units Losartan Potassium (Cozaar) 100 mg PO DAILY [facility] Last Admin: 02/01/19 10:14 Dose: 100 mg Metoprolol Tartrate (Lopressor) 50 mg PO BID [facility] Last Admin: 02/01/19 10:14 Dose: 50 mg Montelukast Sodium (Singulair) 10 mg PO DAILY [facility] Last Admin: 02/01/19 10:13 Dose: 10 mg Pantoprazole Sodium (Protonix Inj) 40 mg IVP DAILY [facility] Last Admin: 02/01/19 12:15 Dose: 40 mg Polyethylene Glycol (Miralax) 17 gm PO DAILY [facility] Last Admin: 02/01/19 12:16 Dose: 17 gm Zaleplon (Sonata) 5 mg PO AGUSTO - Labs Labs: 02/01/19 06:30 02/01/19 06:30
--- NOTE | 2019-02-01 18:46 | PN ---
DATE: 02/01/2019 SUBJECTIVE: This is a 58-year-old female, came in for hyperglycemia, atypical chest pain, and hip pain complaints in the ER. The patient has a past medical history of diabetes insulin not controlled, hyperlipidemia, hypertension, esophageal reflux disease, chest pain NOS, and osteoporosis. The patient was seen today out of bed, into the chair at the bedside. She was alert. No acute distress, but the patient complained of feeling sad. She was very tearful. Not agitated, but distressed. There are social pressure issues may be going on at home. The patient was unwilling to go into further details. She denied any sinus problems, facial pain, chest pain, palpitations, abdominal pain, shortness of breath, cough or joint swelling. PHYSICAL EXAMINATION VITAL SIGNS: Temperature 97.7, pulse 86, blood pressure 132/83, O2 saturation 99% on room air. P/E HEAD NORMOCHALLIC MUCOS MEMBRAINES MOIST NECK SUPPLE NORMAL INSPECTION LUNGS CTA S1S2 AMBOMEN SOFT NON-TENDER SKIN INTACT NO CYNOSIS NO COGNITIVE DEFICITS LABORATORY DATA: White blood cells 7.6, hemoglobin 14.2, hematocrit 43.7, platelet count 281. Chemistry; sodium 136, potassium 4.4, chloride 98, BUN 29, GFR is over 60, random glucose is 245 today since spiking of high and between the numbers of 240 to about 300 fasting. Hemoglobin was 12.0. on 02/01/2019, today cholesterol is 279. MEDICATIONS: Tylenol every 4 hours, DuoNeb 3 mL every 6 hours, aspirin 81 mg daily, Plavix 75 mg daily, Pepcid 40 mg daily, Lasix 40 mg IV every 12 hours, Motrin 600 mg every 6 hours p.r.n., Levemir 24 units at night, Humalog coverage, the patient is on Cozaar 100 mg p.o. daily, Lopressor 50 mg b.i.d., montelukast sodium 10 mg, no longer on Protonix injection, and MiraLax 17 g p.o. daily. ASSESSMENT: This is a 58-year-old female came in with hyperglycemia. She has a longstanding diabetes mellitus that is uncontrolled due to her non- compliance and/or social issues. The patient also is having personal social issues at home she is with flat affect and depressed mood today. PLAN: We kept Motrin for the hip pain but changed dose to q6 prn, Blood sugars have been elevated despite insulin coverage and basal insulin qhs, consult for endocrinology will f/u with reccomendations. Also the patient, a consult for Psychiatry was included today for the patient's depression and increased tearfulness throughout the day. The patient agreed to see Psychiatry and We will follow up. ALL ABOVE NOTED , AGREED ALL ABOVE , D/D WITH REAL ESTATE ACCOUNTANT . WILL F/U Luis Angel Menjivar APN Malinda Saucedo MD MTDD
--- NOTE | 2019-02-01 21:40 | CON ---
DATE OF CONSULTATION: 02/01/2019 HISTORY OF PRESENT ILLNESS: In short, the patient is a 58-year-old female with multiple medical issues including COPD, diabetes, hypertension, asthma and hyperlipidemia. The patient was admitted for evaluation of dizziness, which most likely was related to high sugar level which was more than 500 at the time of admission. Psych consult was called for evaluation of depressive symptoms. The patient was seen and examined today with a Wolof-speaking nurse. She presented to be alert, disengaged, apathetic. The patient reported that she was feeling depressed for the past couple of years. She was seeing a therapist and psychiatrist at [place]. The patient reported that she has never been hospitalized into the psychiatric inpatient unit in the past, but was prescribed psychotropic medication, which she does not remember the name of. The patient reported that for the past couple of weeks she was feeling hopeless and helpless. She was feeling like she is a burden for her family. The patient also reported that she was not able to sleep. The patient reported that she did not want to talk to nobody and was self isolating. The patient also reported that she had a feeling that she does not want to live anymore, but denied any intent or plan to kill herself, but passive wish to be . The patient reported no psychotic symptoms, but difficulty to fall asleep and to stay asleep and daily living activities. The patient also reported to feel anxious. VITAL SIGNS: Reviewed. Temperature 97.7, pulse 86, blood pressure 132/83, respirations 18, oxygen saturation is 99. MEDICATIONS: Reviewed. The patient is on Tylenol, DuoNeb, aspirin, Plavix, Cymbalta was initiated. Risks, benefits, and alternatives discussed with the patient. The patient is on Pepcid, Lasix, ibuprofen, Levemir, Humalog, Cozaar, Lopressor, Singulair, Protonix, MiraLax, and Sonata will be given to the patient for insomnia. LABS: Reviewed. Urinalysis reviewed. MENTAL STATUS EXAMINATION: The patient presented at her chronological age, flat affect, as well as tearful. Thought process seems to be concrete. Thought Content: The patient denied visual, auditory or tactile hallucinations, but reported feeling hopeless and helpless, passive wish to be . The patient reported her mood as hopeless and depressed and "I feel like burden," this is the patient's statement. Insight and judgment seems to be limited. Impulses are well controlled. IMPRESSION: Rule out major depressive disorder, rule out mood disorder due to general medical condition. PLAN: This loan underwriter will initiate Cymbalta. Also Sonata will be started for insomnia. The patient was open to option to admit herself into the psychiatric inpatient unit for medication management as well as therapy. Meanwhile, while the patient is on the medical side, we will follow up as a [employer] sales consultant and will need proper disposition plan. Should you have any questions, give me a call back. Thank you very much for letting me participate in the care of your patient. Susana Burgos MD MTDD
[2019-02-01] MEDS ORDERED: Insulin Detemir 100 units/ml Vial (Levemir) SC SCH (22:00)
--- NOTE | 2019-02-01 22:36 | PN ---
DATE: 02/01/2019 PULMONARY PROGRESS NOTE REFERRING PHYSICIAN: Malinda Saucedo MD SUBJECTIVE: The patient is seen and examined in a chair, upset, sugar is still high. No headache, no rhinitis, no nausea, vomiting, diarrhea, leg pain or leg swelling. PHYSICAL EXAMINATION: GENERAL: In no acute distress. VITAL SIGNS: Temperature is 98, heart rate 62, respiratory rate 18, blood pressure 110/63, and pulse oximetry 99% on room air. HEENT: Moist mucous membranes, crowded airway. NECK: Supple, no JVD. LUNGS: Fair airflow with rhonchi. HEART: S1 and S2. ABDOMEN: Soft and nontender. No organomegaly. EXTREMITIES: No edema. NEUROLOGIC: Awake, alert, and follows simple commands. CURRENT MEDICATIONS: She is on Cozaar 100 mg daily, Cymbalta 20 mg daily, DuoNeb every 6 hours, Ecotrin 81 mg daily, insulin coverage, Lasix 40 mg twice a day, Levemir 24 units subcutaneously at bedtime, metoprolol tartrate 50 mg twice a day, MiraLax 17 g daily, Motrin 60 mg every 6 hours p.r.n., Pepcid 40 mg at bedtime, Plavix 75 mg daily, Protonix 40 mg daily, Singulair 10 mg daily, and Sonata 5 mg at bedtime, also Tylenol on p.r.n. basis. LABORATORY DATA: Shows hemoglobin 14.2, hematocrit 43.7, WBC 7.6, and platelets 281. Blood sugar this afternoon is 400 plus, hemoglobin A1c is 12, iron is 101, and TSH 1.21. IMPRESSION AND PLAN: Chronic obstructive lung disease, active smoker, uncontrolled diabetes, gastroesophageal reflux disease, may have sleep apnea syndrome. Pulmonary point of view, she is okay. Continue bronchodilators. Keep head at 45 degrees. Avoid nocturnal sedation. Gastric prophylaxis, deep venous thrombosis prophylaxis. Insulin dose has been adjusted, seen by Endocrinology. We will recommend pulmonary function test and sleep study upon discharge as outpatient. Thank you and we will follow with you. Jose G Sprague MD
--- NOTE | 2019-02-02 02:38 | PN ---
DATE: 02/01/2019 ENDOCRINOLOGY FOLLOWUP NOTE. LOCATION: Room 371. SUBJECTIVE: This is a 58-year-old female with recent uncontrolled type 2 insulin-requiring diabetes, presenting here with marked hyperglycemic accelerations and is now being followed closely for metabolic management. Her glycemic levels are fluctuating, but improved and the glucose values have ranged from 245 to 248 mg/dL. LABORATORY DATA: Her chemistry showed a BUN of 29, sodium 136, potassium 4.4, chloride 98, CO2 of 31, glucose 262, and creatinine 0.8. Her serum cholesterol is 279, the triglycerides are 152 as noted. ASSESSMENT: This is a 58-year-old female with uncontrolled and decompensated type 2 insulin-requiring diabetes with marked hyperglycemic accelerations related to subtherapeutic insulin regimen and is now being followed closely for metabolic management. PLAN OF MANAGEMENT: We will continue the same basal and bolus insulin regimen which was modified to optimize metabolic control. We will continue given as 12 units t.i.d. before meals as ordered. We will also continue ____ insulin given as Levemir at 24 units subcutaneously at bedtime daily as given. We will titrate incrementally as indicated to optimize metabolic control. We will obtain serial chemistries and supplement accordingly as needed. We will follow. Prabha Carlosn MD
[2019-02-02] MEDS: Albuterol-Ipratrop 3 mg / 0.5 (3 ml) UD IH SCH ×4 (03:11→19:28)
--- NOTE | 2019-02-02 06:58 | CP.PCM.PN ---
Subjective - Date & Time of Evaluation Date of Evaluation: 02/02/19 Time of Evaluation: 06:20 - Subjective Subjective: Lying in bed, awake, alert, no distress, denies chest pain Reason for consultation and follow up: Cardiac evaluation and follow up; history of hypertension, diabetes,hyperlipidemia, COPD, admitted for uncontrolled glucose Seen and examined by me and Dr. Martinez Objective - Vital Signs/Intake and Output Vital Signs (last 24 hours): Temp Pulse Resp BP Pulse Ox 98.3 F 55 L 19 106/68 99 02/01/19 17:55 02/01/19 17:55 02/01/19 17:55 02/01/19 23:41 02/01/19 17:55 Intake and Output: 02/01/19 02/02/19 18:59 06:59 Intake Total 0 Balance 0 - Medications Medications: Current Medications Acetaminophen (Tylenol 325mg Tab) 650 mg PO Q4H PRN PRN Reason: Pain, Mild (1-3) Last Admin: 01/31/19 02:32 Dose: 650 mg Albuterol/Ipratropium (Duoneb 3 Mg/0.5 Mg (3 Ml) Ud) 3 ml IH [id number] [facility] Last Admin: 02/02/19 03:11 Dose: 3 ml Aspirin (Ecotrin) 81 mg PO DAILY [facility] Last Admin: 02/01/19 10:18 Dose: Not Given Clopidogrel Bisulfate (Plavix) 75 mg PO DAILY [facility] Last Admin: 02/01/19 10:13 Dose: 75 mg Duloxetine HCl (Cymbalta) 20 mg PO DAILY [facility] Last Admin: 02/01/19 16:52 Dose: 20 mg Famotidine (Pepcid) 40 mg PO HS [facility] Last Admin: 02/01/19 22:13 Dose: 40 mg Furosemide (Lasix) 40 mg IVP Q12 [facility] Last Admin: 02/01/19 23:41 Dose: Not Given Ibuprofen (Motrin Tab) 600 mg PO Q6 PRN PRN Reason: Pain, moderate (4-7) Insulin Detemir (Levemir) 24 unit SC HS [facility] Last Admin: 02/01/19 22:14 Dose: 24 units Insulin Human Lispro (Humalog) 12 units SC AC [facility] Last Admin: 02/01/19 16:52 Dose: 12 units Losartan Potassium (Cozaar) 100 mg PO DAILY [facility] Last Admin: 02/01/19 10:14 Dose: 100 mg Metoprolol Tartrate (Lopressor) 50 mg PO BID [facility] Last Admin: 02/01/19 17:18 Dose: 50 mg Montelukast Sodium (Singulair) 10 mg PO DAILY [facility] Last Admin: 02/01/19 10:13 Dose: 10 mg Pantoprazole Sodium (Protonix Inj) 40 mg IVP DAILY [facility] Last Admin: 02/01/19 12:15 Dose: 40 mg Polyethylene Glycol (Miralax) 17 gm PO DAILY [facility] Last Admin: 02/01/19 12:16 Dose: 17 gm Zaleplon (Sonata) 5 mg PO HS [facility] Last Admin: 02/01/19 22:13 Dose: 5 mg - Labs Labs: 02/01/19 06:30 02/01/19 06:30 - Constitutional Appears: Non-toxic, No Acute Distress - Head Exam Head Exam: NORMAL INSPECTION, NORMOCEPHALIC - Eye Exam Eye Exam: Normal appearance Pupil Exam: NORMAL ACCOMODATION - ENT Exam ENT Exam: Mucous Membranes Moist, Normal Exam - Respiratory Exam Respiratory Exam: Decreased Breath Sounds, Clear to Ausculation Bilateral, NORMAL BREATHING PATTERN - Cardiovascular Exam Cardiovascular Exam: REGULAR RHYTHM, +S1, +S2 - GI/Abdominal Exam GI & Abdominal Exam: Soft, Normal Bowel Sounds - Extremities Exam Extremities Exam: Full ROM, Normal Capillary Refill - Neurological Exam Neurological Exam: Alert, Awake, Oriented x3 - Psychiatric Exam Psychiatric exam: Depressed - Skin Skin Exam: Dry, Normal Color, Warm Assessment and Plan - Assessment and Plan (Free Text) Assessment: A 58 year old female who came in to the ER due to dizziness, glucose checked and it was above 500mg/dl. History of COPD,insulin dependent diabetes, hypertension, asthma, hyperlipidemia, and GERD. She was seen by PMD 2 days prior to admission with elevated glucose and adjusted insulin dosage. Denies chest pain or shortness of breath. EKG showed normal sinus rhythm. Stress test done on 08/19/14 showed LVEF 67%, normal result, no ischemia. MUGA done on 07/14/15 showed LVEF 70%. Echo done on 11/15/15 sgowed LVEF 70%, mild MR/TR.normal chambers. Cardiac status stable. Admitted for uncontrolled diabetes.Endocrine on consult, Psych on consult. For echo today. For Stress test as outpatient for risk stratification. Seem depressed. Plan: Denies chest pain Heart rate controlled Blood pressure controlled For Echo to evaluate LV function Control glucose On ASA 81 mg daily,Plavix 75 mg daily,Lasix 40 mg daily, Cozaar 100 mg daily, Lopressor 50 mg BID continue current medications Continue current treatment Diet modifications Psych on consult (depression) Stress test as outpatient Will follow up Plan and treatment discussed with Dr. Martinez
[2019-02-02] MEDS: Insulin Lispro 1 UNITS/0.01 ML SC SCH ×4 (08:48→17:21)
[2019-02-02 09:05] VITALS: RESP 20
[2019-02-02] MEDS: POLYETHYLENE GLYCOL 3350 17 GM/Dose PACKET PO SCH (09:15)
--- NOTE | 2019-02-02 09:41 | CP.PCM.PN ---
Subjective - Date & Time of Evaluation Date of Evaluation: 02/02/19 Time of Evaluation: 09:38 - Subjective Subjective: Gastroenterology Fellow/PGY6 Progress Note for Dr. Torres Patient tolerating diet without vomiting or pain. Notes improved epigastric discomfort. No bowel movement overnight. A 12-point review of systems negative except for as above. Objective - Vital Signs/Intake and Output Vital Signs (last 24 hours): Temp Pulse Resp BP Pulse Ox 98.3 F 68 20 115/75 97 02/02/19 09:04 02/02/19 09:16 02/02/19 09:04 02/02/19 09:16 02/02/19 09:04 Intake and Output: 02/02/19 02/02/19 06:59 18:59 Intake Total 0 Balance 0 - Medications Medications: Current Medications Acetaminophen (Tylenol 325mg Tab) 650 mg PO Q4H PRN PRN Reason: Pain, Mild (1-3) Last Admin: 01/31/19 02:32 Dose: 650 mg Albuterol/Ipratropium (Duoneb 3 Mg/0.5 Mg (3 Ml) Ud) 3 ml IH [id number] [facility] Last Admin: 02/02/19 08:10 Dose: Not Given Aspirin (Ecotrin) 81 mg PO DAILY [facility] Last Admin: 02/02/19 09:17 Dose: Not Given Clopidogrel Bisulfate (Plavix) 75 mg PO DAILY [facility] Last Admin: 02/02/19 09:16 Dose: 75 mg Duloxetine HCl (Cymbalta) 20 mg PO DAILY [facility] Last Admin: 02/02/19 09:16 Dose: 20 mg Famotidine (Pepcid) 40 mg PO [facility] Last Admin: 02/01/19 22:13 Dose: 40 mg Furosemide (Lasix) 40 mg IVP Q12 [facility] Last Admin: 02/02/19 09:16 Dose: 40 mg Ibuprofen (Motrin Tab) 600 mg PO Q6 PRN PRN Reason: Pain, moderate (4-7) Insulin Detemir (Levemir) 24 unit SC [facility] Last Admin: 02/01/19 22:14 Dose: 24 units Insulin Human Lispro (Humalog) 12 units SC AC [facility] Last Admin: 02/02/19 08:48 Dose: 12 units Losartan Potassium (Cozaar) 100 mg PO DAILY [facility] Last Admin: 02/02/19 09:15 Dose: 100 mg Metoprolol Tartrate (Lopressor) 50 mg PO BID [facility] Last Admin: 02/02/19 09:16 Dose: 50 mg Montelukast Sodium (Singulair) 10 mg PO DAILY [facility] Last Admin: 02/02/19 09:16 Dose: 10 mg Pantoprazole Sodium (Protonix Inj) 40 mg IVP DAILY [facility] Last Admin: 02/02/19 09:16 Dose: 40 mg Polyethylene Glycol (Miralax) 17 gm PO DAILY [facility] Last Admin: 02/02/19 09:15 Dose: 17 gm Zaleplon (Sonata) 5 mg PO HS [facility] Last Admin: 02/01/19 22:13 Dose: 5 mg - Labs Labs: 02/01/19 06:30 02/01/19 06:30 - Constitutional Appears: Non-toxic, No Acute Distress - Head Exam Head Exam: ATRAUMATIC, NORMOCEPHALIC - Eye Exam Eye Exam: EOMI, PERRL. absent: Scleral icterus Pupil Exam: PERRL. absent: Miosis, Mydriatic - ENT Exam ENT Exam: Mucous Membranes Moist, Normal Oropharynx - Neck Exam Neck Exam: Full ROM, Normal Inspection - Respiratory Exam Respiratory Exam: Clear to Ausculation Bilateral. absent: Rales, Rhonchi, Wheezes - Cardiovascular Exam Cardiovascular Exam: RRR, +S1, +S2. absent: Gallop, Rubs - GI/Abdominal Exam GI & Abdominal Exam: Soft, Normal Bowel Sounds. absent: Distended, Firm, Guarding, Rigid, Tenderness, Organomegaly, Rebound - Extremities Exam Extremities Exam: Normal Inspection - Neurological Exam Neurological Exam: Alert, Awake - Psychiatric Exam Psychiatric exam: Normal Affect, Normal Mood - Skin Skin Exam: Dry, Intact, Normal Color, Warm Assessment and Plan - Assessment and Plan (Free Text) Assessment: 58 year old female with GERD, reflux esophagitis, HTN, Diabetes, fibromyalgia, depression, anxiety, COPD, and asthma, COPD presenting with dizziness. Active treatment of dyspeis in setting orf uncontrolled diabetes likely complicated by gastroparesis and constipation. EGD 05/2018 showed non-severe reflux esophagitis, H. pylori negative gastritis, gastric papule(nodule). Colonoscopy 05/2018 showed inadequate bowel prep. internal hemorrhoids with recommended repeat colonoscopy in 6 months. Plan: -resolved vomiting, improving dyspepsia -continue PPI ACB, Pepcid HS -tolerating liquid diet, advance as toleratd to diabetic low fat small, frequent meals -continue bowel regimen-Miralax daily -pending CT A/P multiphasic - to re-evaluate liver lesions from CT liver 10/2016 -pending Ultrasound to evaluate for gallstones -avoid NSAIDs and narcotics -will follow clinical course
--- NOTE | 2019-02-02 10:22 | CP.PCM.PN ---
Subjective - Date & Time of Evaluation Date of Evaluation: 02/02/19 Time of Evaluation: 10:21 - Subjective Subjective: PGY_[address] Carlson, Endo Family brought food from outside yesterday and pt sugar 440 in the afternoon. Pt is eating saltine crackers as I visited her. Mild abdominal pain. No other acute complaints Objective - Vital Signs/Intake and Output Vital Signs (last 24 hours): Temp Pulse Resp BP Pulse Ox 98.3 F 68 20 115/75 97 02/02/19 09:04 02/02/19 09:16 02/02/19 09:04 02/02/19 09:16 02/02/19 09:04 Intake and Output: 02/02/19 02/02/19 06:59 18:59 Intake Total 0 Balance 0 - Medications Medications: Current Medications Acetaminophen (Tylenol 325mg Tab) 650 mg PO Q4H PRN PRN Reason: Pain, Mild (1-3) Last Admin: 01/31/19 02:32 Dose: 650 mg Albuterol/Ipratropium (Duoneb 3 Mg/0.5 Mg (3 Ml) Ud) 3 ml IH [id number] [facility] Last Admin: 02/02/19 08:10 Dose: Not Given Aspirin (Ecotrin) 81 mg PO DAILY [facility] Last Admin: 02/02/19 09:17 Dose: Not Given Clopidogrel Bisulfate (Plavix) 75 mg PO DAILY [facility] Last Admin: 02/02/19 09:16 Dose: 75 mg Duloxetine HCl (Cymbalta) 20 mg PO DAILY [facility] Last Admin: 02/02/19 09:16 Dose: 20 mg Famotidine (Pepcid) 40 mg PO HS [facility] Last Admin: 02/01/19 22:13 Dose: 40 mg Furosemide (Lasix) 40 mg IVP Q12 [facility] Last Admin: 02/02/19 09:16 Dose: 40 mg Ibuprofen (Motrin Tab) 600 mg PO Q6 PRN PRN Reason: Pain, moderate (4-7) Insulin Detemir (Levemir) 30 unit SC HS [facility] Insulin Human Lispro (Humalog) 14 units SC AC [facility] Losartan Potassium (Cozaar) 100 mg PO DAILY [facility] Last Admin: 02/02/19 09:15 Dose: 100 mg Metoprolol Tartrate (Lopressor) 50 mg PO BID [facility] Last Admin: 02/02/19 09:16 Dose: 50 mg Montelukast Sodium (Singulair) 10 mg PO DAILY [facility] Last Admin: 02/02/19 09:16 Dose: 10 mg Pantoprazole Sodium (Protonix Inj) 40 mg IVP DAILY [facility] Last Admin: 02/02/19 09:16 Dose: 40 mg Polyethylene Glycol (Miralax) 17 gm PO DAILY [facility] Last Admin: 02/02/19 09:15 Dose: 17 gm Zaleplon (Sonata) 5 mg PO HS [facility] Last Admin: 02/01/19 22:13 Dose: 5 mg - Labs Labs: 02/01/19 06:30 02/01/19 06:30 - Constitutional Appears: No Acute Distress - Head Exam Head Exam: ATRAUMATIC, NORMAL INSPECTION, NORMOCEPHALIC - Eye Exam Eye Exam: EOMI, Normal appearance, PERRL. absent: Scleral icterus - ENT Exam ENT Exam: Mucous Membranes Moist - Neck Exam Additional comments: supple - Respiratory Exam Respiratory Exam: Clear to Ausculation Bilateral. absent: Rales, Rhonchi, Wheezes - Cardiovascular Exam Cardiovascular Exam: REGULAR RHYTHM, +S1, +S2 - GI/Abdominal Exam GI & Abdominal Exam: Soft. absent: Tenderness, Normal Bowel Sounds - Extremities Exam Extremities Exam: absent: Calf Tenderness, Pedal Edema - Back Exam Back Exam: absent: CVA tenderness (L), CVA tenderness (R) - Neurological Exam Neurological Exam: Alert, Awake - Psychiatric Exam Psychiatric exam: Normal Affect, Normal Mood - Skin Skin Exam: Dry, Warm Assessment and Plan - Assessment and Plan (Free Text) Plan: Ms Ashley, 58F with DM (A1C 12), GERD, reflux esophagitis, HTN, fibromyalgia, depression, anxiety, COPD, and asthma, COPD presenting with dizziness. She is under treatment for dyspeis in setting orf uncontrolled diabetes likely complicated by gastroparesis and constipation, on PPI ACB, Pepcid HS, miralax qd per GI. She is getting liver CT to re-evaluate liver lesions from CT liver 10/2016 . As for fibromyalgia and mood, psych started her on cymbalta and sonata. - Increase Levemir to 30, Humalog 14 ACTID - limit high glycemic food brought by visitors - diabetic education with dietitian counseling - continue to trend blood glucose s/r/d/w Dr Carlson
--- NOTE | 2019-02-02 10:57 | CT ---
Date of service: 02/02/2019 PROCEDURE: CT Abdomen and Pelvis with and without intravenous contrast HISTORY: multiphasic,do delayed phase for 4min-liver sheri COMPARISON: 01/14/2018 CT and ultrasound 02/02/2019 TECHNIQUE: Axial images of the abdomen were obtained in the pre contrast, portal venous and delayed phases of enhancement. Coronal and sagittal reformats were generated. Contrast dose: Radiation dose: Total exam DLP = 2633.14 mGy-cm. This CT exam was performed using one or more of the following dose reduction techniques: Automated exposure control, adjustment of the mA and/or kV according to patient size, and/or use of iterative reconstruction technique. FINDINGS: LOWER THORAX: Unremarkable. LIVER: There is lesion in the medial segment of the left lobe of the liver measuring 3 cm diameter and 3.6 cm in height. This shows a nodular enhancement pattern consistent with a hemangioma. GALLBLADDER AND BILE DUCTS: Unremarkable. PANCREAS: Unremarkable. No gross lesion or ductal dilatation. SPLEEN: Unremarkable. ADRENALS: Unremarkable. No mass. KIDNEYS AND URETERS: Unremarkable. No hydronephrosis. No solid mass. VASCULATURE: Unremarkable. No aortic aneurysm. No aortic atherosclerotic calcification or mural plaque present. BOWEL: Unremarkable. No obstruction. No gross mural thickening. APPENDIX: Normal appendix. PERITONEUM: Unremarkable. No free fluid. No free air. LYMPH NODES: Unremarkable. No enlarged lymph nodes. BLADDER: Unremarkable. REPRODUCTIVE: Unremarkable. BONES: No acute fracture. OTHER FINDINGS: None. IMPRESSION: There is lesion in the medial segment of the left lobe of the liver measuring 3 cm diameter and 3.6 cm in height. This shows a nodular enhancement pattern consistent with a hemangioma.
--- NOTE | 2019-02-02 11:54 | CARD ---
APPROVED REPORT Date of service: 02/02/2019 EXAM: Two-dimensional and M-mode echocardiogram with Doppler and color Doppler. INDICATION LV Function:SystolicDiastolic 2D DIMENSIONS Left Atrium (2D)3.6 (1.6-4.0cm)IVSd1.1 (0.7-1.1cm) LVDd4.1 (3.9-5.9cm)PWd1.1 (0.7-1.1cm) LVDs2.7 (2.5-4.0cm)FS (%) 32.8 % LVEF (%)61.9 (>50%) M-Mode DIMENSIONS Aortic Root2.40 (2.2-3.7cm)Aortic Cusp Exc.1.60 (1.5-2.0cm) Aortic Valve AoV Peak Knufjakx900.0cm/Ravindra Peak GR.7mmHg Mitral Valve MV E Pnobzjzm36.9cm/sMV A Wdlhmkpf94.4cm/sE/A ratio0.7 TDI E/Lateral E'0.0E/Medial E'0.0 Tricuspid Valve TR Peak [id number]/sRAP [id number] Peak Gr.13mmHg [id number] LEFT VENTRICLE The left ventricle is normal size. There is normal left ventricular wall thickness. The left ventricular function is normal.EF-60-65% There is normal LV segmental wall motion. Transmitral Doppler flow pattern is Grade III-reversible restrictive diastolic dysfunction. No left ventricle thrombus noted on this study. There is no ventricular septal defect visualized. There is no left ventricular aneurysm. There is no mass noted in the left ventricle. RIGHT VENTRICLE The right ventricle is normal size. There is normal right ventricular wall thickness. The right ventricular systolic function is normal. ATRIA The left atrium size is normal. The right atrium size is normal. The interatrial septum is intact with no evidence for an atrial septal defect. AORTIC VALVE The aortic valve is thickened but opens well. The aortic valve is mildly to moderately sclerotic. No aortic regurgitation is present. There is no aortic valvular stenosis. There is no aortic valvular vegetation. MITRAL VALVE The mitral valve is thickened but opens well. Mitral regurgitation is trace. There is no mitral valve stenosis. There is no evidence of mitral valve prolapse. TRICUSPID VALVE The tricuspid valve leaflets are thickened , but open well. There is trace tricuspid regurgitation.RVSP_23 mmof hg. There is no tricuspid valve stenosis. There is no tricuspid valve prolapse or vegetation. PULMONIC VALVE The pulmonary valve is normal in structure. There is no pulmonic valvular regurgitation. There is no pulmonic valvular stenosis. GREAT VESSELS The aortic root is normal in size. The ascending aorta is normal in size. The pulmonary artery is normal. The IVC is normal in size and collapses >50% with inspiration. PERICARDIAL EFFUSION There is no pleural effusion. There is no pericardial effusion. <Conclusion> Normal chamber Size.EF-60-65% Trace MR/Tr RVSP-23 mmof Hg. No vegetation or thrombus noted.
--- NOTE | 2019-02-02 13:17 | US ---
Date of service: 02/02/2019 HISTORY: rule out gallstones COMPARISON: None. TECHNIQUE: Grayscale imaging was performed. FINDINGS: LIVER: Measures 16.7 cm. There is diffuse increased echogenicity of the liver parenchyma. There is a 5.1 x 3.3 x 3.5 cm linear hyperechoic area in the left hepatic lobe near the henok hepatitis. No intrahepatic bile duct dilatation. GALLBLADDER: There are no gallstones, wall thickening or pericholecystic fluid. The sonographic Way's sign is negative. COMMON BILE DUCT: Measures 5.8 mm. No stones. No dilatation. PANCREAS: Unremarkable as visualized. No mass. No ductal dilatation. RIGHT KIDNEY: Measures 10.2cm. Normal echogenicity. No calculus, mass, or hydronephrosis. LEFT KIDNEY: Measures 10.9cm. Normal echogenicity. No calculus, mass, or hydronephrosis. SPLEEN: Normal in size and contour. No mass. AORTA: No aneurysmal dilatation. IVC: Unremarkable. OTHER FINDINGS: None. IMPRESSION: Mild hepatomegaly and fatty liver. 5.1 x 3.3 x 3.5 cm hemangioma in the left hepatic lobe.
--- NOTE | 2019-02-02 18:12 | PN ---
DATE: 02/02/2019 SUBJECTIVE: The patient was seen today for followup. As per nursing report as well as nurse practitioner report, the patient is medically stable for psychiatric transfer. The patient was interviewed today and this public relations writer utilized voice translation for interpretation. ID number is [id number]. The patient presented to be alert. The patient reported that she had a good night's sleep, on Sonata. The patient reported that she had no side effects from Cymbalta with this public relations writer initiated. The patient said that she right now her plan is to spend East week with her family in [place]. The patient reported that this . The patient said that if she will be feeling worse, she will bring herself back to the hospital. The patient was advised to continue medication and take it as prescribed. The patient reported that she is interested to follow up at [facility] outpatient clinic neighborhood clinic with Dr. Christina as psychiatrist. The patient denied hearing voices, denied seeing things. Denied paranoid ideation, but the patient still reported to be depressed. PHYSICAL EXAMINATION: VITAL SIGNS: Reviewed. Temperature 98.3, pulse is 68, blood pressure 115/75, respirations 20, and oxygen saturation is 97. MENTAL STATUS EXAM: The patient appears to be alert, oriented, pleasant, cooperative. Intermittent eye contact. Mood described as depressed. Yesterday, the patient was tearful, but today affect was more reactive and mood congruent. Thought process seems to be concrete. Thought content, the patient denied visual, auditory or tactile hallucinations. Denied paranoid ideation. The patient has transient feelings of hopelessness and depression, but adamantly denied thoughts of harming himself or herself or others. Insight and judgment seems to be improving. Impulses are well controlled. LABORATORY DATA: Reviewed. Chemistry reviewed. Urinalysis reviewed. MEDICATIONS: Reviewed. The patient is on Tylenol, DuoNeb, aspirin, Lipitor, Plavix, Cymbalta, Pepcid, TriCor, Lasix, Motrin, Levemir, Humalog, Cozaar, Lopressor, Singulair, Protonix, MiraLax, and Sonata. IMPRESSION: Most likely the patient has major depressive disorder, rule out mood disorder due to general medical condition. PLAN: This public relations writer offered the patient admission to the psychiatric inpatient unit. The patient declined that offer for now. The patient contracted for safety. The patient was given information about [facility] and local providers. This public relations writer advised nurse practitioner area to increase the dose of Cymbalta to 40 mg daily as well as Sonata should be continued 5 mg daily. The patient assured this public relations writer that she will come back to the hospital if she would feel worse. The patient posed no imminent danger to self or others. Should you have any questions give me a call back. This public relations writer will sign off. Susana Burgos MD
--- NOTE | 2019-02-02 20:33 | PN ---
DATE: 02/02/2019 SUBJECTIVE: The patient is a 58-year-old female. The patient was seen and examined at the bedside on 02/02/2019. Still complained about headaches, abdominal pain, nauseous. When I went to the room she was having crackers, I informed her that she had to cut down her input because her sugar is most of the time high. I spoke to the nurse and put consult with the diabetic eduction. She is refusing to go to Psychiatry. She has to go because Dr. Susana Burgos accepted the patient. No fever. No chills. No hematuria. No hematochezia. PHYSICAL EXAMINATION: VITAL SIGNS: Temperature 98.3, pulse 68, respiratory rate 20, blood pressure 150/75, pulse oximetry 97%. HEENT: Head; normocephalic and atraumatic. Eyes; PERRLA. Extraocular muscles intact. Conjunctiva clear. Nose patent. Mucous membranes moist. NECK: Supple. No carotid bruit. No JVD. No thyromegaly. CHEST: Bilaterally symmetrical. HEART: S1 and S2, positive. LUNGS: Clear to auscultation. ABDOMEN: Soft. Bowel sounds present. No organomegaly. EXTREMITIES: No edema. No cyanosis. NEUROLOGIC: The patient is awake and alert. Follows simple commands. MEDICATIONS: Tylenol, DuoNeb, aspirin, Plavix, Cymbalta, famotidine, Lasix, Motrin, Levemir insulin, Losartan. metoprolol, Sonata. LABORATORY DATA: White blood cell 7.6, hemoglobin 14.2, hematocrit 43.7 and platelets 281. Sodium 133, potassium 4.4, BUN 29 and creatinine 0.8 and glucose 262. ASSESSMENT AND PLAN: Ms. Alena Ashley is a 58-year-old female with gastroesophageal reflux disease, dyspepsia, esophagitis, gastritis, hypertension, diabetes mellitus insulin requiring, not very well controlled, I put consult with gin operator, fibromyalgia, depression, anxiety, chronic obstructive pulmonary disease, asthma. Went for CAT scan of the liver noted by me. The patient has history of esophagogastroduodenoscopy done in 05/2018, showed non-severe flap esophagitis, Helicobacter pylori negative, gastric papule nodule. The patient is still nauseous. Total liquid diet. Gastroenterology is on the case. Avoid Nonsteroidal anti-inflammatory drugs. Repeat labs. We will follow up. Malinda Saucedo MD
[2019-02-02] MEDS ORDERED: Insulin Detemir 100 units/ml Vial (Levemir) SC SCH (22:00)
[2019-02-02] MEDS ORDERED: Sodium Chloride 0.9% 1,000 ML IV SCH (22:15)
--- NOTE | 2019-02-02 22:42 | PN ---
DATE: 02/02/2019 PULMONARY PROGRESS NOTE ATTENDING PHYSICIAN: Malinda Saucedo MD SUBJECTIVE: She is lying in the bed, feels much better today. No headache, no rhinitis. No nausea, vomiting, diarrhea. No leg pain or leg swelling. OBJECTIVE PHYSICAL EXAMINATION GENERAL: In no distress. VITAL SIGNS: Temperature is 98, heart rate 63, respiratory is 20, blood pressure 118/77, pulse ox 95% on room air. HEENT: Moist mucous membranes. Crowded airway. NECK: Supple. No JVD. LUNGS: Have fair air flow with no rhonchi. HEART: S1, S2. ABDOMEN: Soft and nontender. No organomegaly. EXTREMITIES: There is no edema. NEUROLOGIC: Awake, alert and follows simple commands. MEDICATIONS She is on Cozaar 200 mg daily, Cymbalta 40 mg daily, DuoNeb every 6 hours, Ecotrin 81 mg daily, insulin coverage, Lasix 40 mg twice a day, Levemir 30 units subcu at bedtime, Lipitor is 20 mg daily, metoprolol tartrate 50 mg twice a day, MiraLax 17 g daily, Motrin 600 mg every 6 hours p.r.n., Pepcid 40 mg daily, Plavix 75 mg daily, Protonix 40 mg daily, Singulair 10 mg daily, IV fluid normal saline 75 mL/hour, Sonata 5 mg at bedtime, Tricor 145 mg daily, Tylenol p.r.n. basis. LABORATORY DATA: Shows blood sugar this morning 229, troponin less than 0.01. She had an echocardiogram done, which shows right ventricular systolic pressure is 23, LV ejection fraction is 60% to 65%, trace MR and TR. Also has an abdominal CT showing there is a lesion in the medial segment of the left lobe of the liver measuring 3 cm in diameter and 3 cm height, this shows a nodular enhancement pattern consistent with hemangioma. IMPRESSION AND PLAN: Chronic obstructive lung disease, active smoker, uncontrolled diabetes, gastroesophageal reflux disease, may have sleep apnea syndrome. Echocardiogram shows normal function. Pulmonary point of view doing well. Continue bronchodilator. Gastric prophylaxis. Deep venous thrombosis prophylaxis. Seen by Psychiatry, being treated for major depression and mood disorder is being ruled out. May need to decrease some diuretics. Thank you and we will follow with you. Jose G Sprague MD
[2019-02-03] MEDS: Albuterol-Ipratrop 3 mg / 0.5 (3 ml) UD IH SCH ×3 (01:09→13:44)
--- NOTE | 2019-02-03 03:41 | PN ---
DATE: 02/02/2019 ENDOCRINOLOGY FOLLOWUP NOTE LOCATION: Room 371. SUBJECTIVE: This is a 58-year-old female with recent uncontrolled type 2 insulin-requiring diabetes, presenting here with marked hyperglycemic accelerations and is now improving clinically and metabolically as noted thereof. Her glucose levels today have ranged from 177 to 228 and 289 mg/dL. LABORATORY DATA: Her chemistry showed a BUN of 29, sodium 136, potassium 4.4, chloride 98, CO2 of 31, glucose 262 and creatinine 0.8. Her hemoglobin A1c is 12% which is and indicative of suboptimal metabolic control of her diabetes even prior to this admission. ASSESSMENT: This is a 58-year-old female with uncontrolled and decompensated type 2 insulin-requiring diabetes, now being followed closely for metabolic management. She presented here with dehydration and marked hyperglycemic accelerations related to a subtherapeutic insulin regimen. PLAN OF MANAGEMENT: We will clearly need more physiologic basal and bolus insulin drug combination even upon discharge today as noted. We would recommend a higher dosing of the basal insulin given as Levemir 30 units subcu at bedtime daily as given. We will also continue the Humalog given as 14 units subcu t.i.d. before meals as ordered. We will continue the low-dose correction scale using Humalog insulin as ordered to obviate hypoglycemia and detailed orders have been given. We will follow and advise accordingly. Prabha Carlson MD
--- NOTE | 2019-02-03 06:56 | CP.PCM.PN ---
Subjective - Date & Time of Evaluation Date of Evaluation: 02/03/19 Time of Evaluation: 06:20 - Subjective Subjective: Awake, alert, no distress Reason for consultation and follow up: Cardiac evaluation and follow up; history of hypertension, diabetes,hyperlipidemia, COPD, admitted for uncontrolled glucose Seen and examined by me and Dr. Martinez Objective - Vital Signs/Intake and Output Vital Signs (last 24 hours): Temp Pulse Resp BP Pulse Ox 98.5 F 58 L 20 96/60 L 88 L 02/02/19 22:00 02/02/19 23:19 02/02/19 22:00 02/03/19 02:00 02/02/19 22:00 Intake and Output: 02/02/19 02/03/19 18:59 06:59 Intake Total 757 Balance 757 - Medications Medications: Current Medications Acetaminophen (Tylenol 325mg Tab) 650 mg PO Q4H PRN PRN Reason: Pain, Mild (1-3) Last Admin: 01/31/19 02:32 Dose: 650 mg Albuterol/Ipratropium (Duoneb 3 Mg/0.5 Mg (3 Ml) Ud) 3 ml IH [id number] [facility] Last Admin: 02/03/19 01:09 Dose: 3 ml Aspirin (Ecotrin) 81 mg PO DAILY [facility] Last Admin: 02/02/19 09:17 Dose: Not Given Atorvastatin Calcium (Lipitor) 20 mg PO DIN [facility] Last Admin: 02/02/19 17:20 Dose: 20 mg Clopidogrel Bisulfate (Plavix) 75 mg PO DAILY [facility] Last Admin: 02/02/19 09:16 Dose: 75 mg Duloxetine HCl (Cymbalta) 40 mg PO DAILY [facility] Famotidine (Pepcid) 40 mg PO HS [facility] Last Admin: 02/02/19 22:21 Dose: 40 mg Fenofibrate (Tricor) 145 mg PO DAILY [facility] Last Admin: 02/02/19 17:20 Dose: 145 mg Furosemide (Lasix) 20 mg PO DAILY [facility] Sodium Chloride (Sodium Chloride 0.9%) 1,000 mls @ 75 mls/hr IV .[id number] [facility] Last Admin: 02/02/19 22:20 Dose: 75 mls/hr Ibuprofen (Motrin Tab) 600 mg PO Q6 PRN PRN Reason: Pain, moderate (4-7) Insulin Detemir (Levemir) 30 unit SC [facility] Last Admin: 02/02/19 22:21 Dose: 30 units Insulin Human Lispro (Humalog) 14 units SC AC [facility] Last Admin: 02/02/19 17:21 Dose: 14 units Losartan Potassium (Cozaar) 100 mg PO DAILY [facility] Last Admin: 02/02/19 09:15 Dose: 100 mg Metoprolol Tartrate (Lopressor) 50 mg PO BID [facility] Last Admin: 02/02/19 17:20 Dose: 50 mg Montelukast Sodium (Singulair) 10 mg PO DAILY [facility] Last Admin: 02/02/19 09:16 Dose: 10 mg Pantoprazole Sodium (Protonix Ec Tab) 40 mg PO B [facility] Polyethylene Glycol (Miralax) 17 gm PO DAILY [facility] Last Admin: 02/02/19 09:15 Dose: 17 gm Zaleplon (Sonata) 5 mg PO [facility] Last Admin: 02/02/19 22:21 Dose: 5 mg - Labs Labs: 02/01/19 06:30 02/01/19 06:30 - Constitutional Appears: Non-toxic, No Acute Distress - Head Exam Head Exam: NORMAL INSPECTION, NORMOCEPHALIC - Eye Exam Eye Exam: Normal appearance Pupil Exam: NORMAL ACCOMODATION - ENT Exam ENT Exam: Mucous Membranes Moist, Normal Exam - Respiratory Exam Respiratory Exam: Decreased Breath Sounds, Clear to Ausculation Bilateral, NORMAL BREATHING PATTERN - Cardiovascular Exam Cardiovascular Exam: +S1, +S2 - GI/Abdominal Exam GI & Abdominal Exam: Soft, Normal Bowel Sounds - Extremities Exam Extremities Exam: Full ROM, Normal Capillary Refill - Neurological Exam Neurological Exam: Alert, Awake, Oriented x3 - Psychiatric Exam Psychiatric exam: Normal Affect, Normal Mood - Skin Skin Exam: Dry, Normal Color, Warm Assessment and Plan - Assessment and Plan (Free Text) Assessment: A 58 year old female who came in to the ER due to dizziness, glucose checked and it was above 500mg/dl. History of COPD,insulin dependent diabetes, hypertension, asthma, hyperlipidemia, and GERD. She was seen by PMD 2 days prior to admission with elevated glucose and adjusted insulin dosage. Denies chest pain or s hortness of breath. EKG showed normal sinus rhythm. Stress test done on 08/19/14 showed LVEF 67%, normal result, no ischemia. MUGA done on 07/14/15 showed LVEF 70%. Echo done on 11/15/15 showed LVEF 70%, mild MR/TR.normal chambers. Cardiac status stable. Admitted for uncontrolled diabetes. Endocrine on consult, Psych on consult. Echo done and showed LVEF 60-655, trace MR/TR, RVSP 23 mmHg. For Stress test as outpatient for risk stratification. Seen by Psychiatry for depression, recommended in-patient admission but patient declined/refused at this time. Glucose controlled. Poor oral intake. Started on IV fluids. Plan: Denies chest pain Heart rate controlled Systolic Blood pressure 90's Poor oral intake, continue IV fluids Echo done and showed LVEF 60-655, trace MR/TR, RVSP 23 mmHg. On ASA 81 mg daily,Plavix 75 mg daily,Lasix 40 mg daily, Cozaar 100 mg daily, Lopressor 50 mg BID Continue current medications Continue current treatment Glucose controlled. Refusing Psych in patient admission Stress test as outpatient Will follow up Plan and treatment discussed with Dr. Martinez
[2019-02-03 07:14] LABS: HEMOGLOBIN 13.4 g/dL (12.0-16.0); MEAN CELL VOLUME 91.3 fl (80.0-105.0); MEAN CORPUSCULAR HEMOGLOBIN 29.3 pg (25.0-35.0); MEAN CORPUSCULAR HGB CONC 32.1 g/dl (31.0-37.0); MEAN PLATELET VOLUME 12.3 fl (7.0-11.0); RBC 4.58 10^6/uL (3.5-6.1); RED CELL DISTRIBUTION WIDTH 13.5 % (11.5-14.5); WHITE BLOOD COUNT 8.1 10^3/uL (4.5-11.0)
[2019-02-03 07:17] VITALS: BP 102/62; PULSE 60; TEMP 98.3; O2SAT 98
[2019-02-03] MEDS ORDERED: Pantoprazole 40 mg EC Tab PO SCH (07:30)
[2019-02-03 08:08] LABS: ALB/GLOB RATIO 1.1 (1.1-1.8); ALBUMIN 3.6 g/dL (3.0-4.8); ALT/SGPT 9 U/L (7-56); AST/SGOT 18 U/L (14-36); BLOOD UREA NITROGEN 19 mg/dL (7-21); CALCIUM 9.5 mg/dL (8.4-10.5); GFR NON-AFRICAN AMERICAN > 60
[2019-02-03] MEDS: Insulin Lispro 1 UNITS/0.01 ML SC SCH ×2 (08:22→12:14)
--- NOTE | 2019-02-03 09:23 | CP.PCM.PN ---
Subjective - Date & Time of Evaluation Date of Evaluation: 02/03/19 Time of Evaluation: 09:20 - Subjective Subjective: PGY-[address] Carlson Pt does not have good appetite but abdominal pain much improves. No acute complaint Objective - Vital Signs/Intake and Output Vital Signs (last 24 hours): Temp Pulse Resp BP Pulse Ox 98.3 F 60 20 102/62 98 02/03/19 06:00 02/03/19 06:00 02/03/19 06:00 02/03/19 06:00 02/03/19 06:00 Intake and Output: 02/03/19 02/03/19 06:59 18:59 Intake Total 757 Balance 757 - Medications Medications: Current Medications Acetaminophen (Tylenol 325mg Tab) 650 mg PO Q4H PRN PRN Reason: Pain, Mild (1-3) Last Admin: 01/31/19 02:32 Dose: 650 mg Albuterol/Ipratropium (Duoneb 3 Mg/0.5 Mg (3 Ml) Ud) 3 ml IH [id number] [facility] Last Admin: 02/03/19 08:18 Dose: 3 ml Aspirin (Ecotrin) 81 mg PO DAILY [facility] Last Admin: 02/02/19 09:17 Dose: Not Given Atorvastatin Calcium (Lipitor) 20 mg PO DIN [facility] Last Admin: 02/02/19 17:20 Dose: 20 mg Clopidogrel Bisulfate (Plavix) 75 mg PO DAILY [facility] Last Admin: 02/02/19 09:16 Dose: 75 mg Duloxetine HCl (Cymbalta) 40 mg PO DAILY [facility] Famotidine (Pepcid) 40 mg PO HS [facility] Last Admin: 02/02/19 22:21 Dose: 40 mg Fenofibrate (Tricor) 145 mg PO DAILY [facility] Last Admin: 02/02/19 17:20 Dose: 145 mg Furosemide (Lasix) 20 mg PO DAILY [facility] Sodium Chloride (Sodium Chloride 0.9%) 1,000 mls @ 75 mls/hr IV .[id number] [facility] Last Admin: 02/02/19 22:20 Dose: 75 mls/hr Ibuprofen (Motrin Tab) 600 mg PO Q6 PRN PRN Reason: Pain, moderate (4-7) Insulin Detemir (Levemir) 30 unit SC [facility] Last Admin: 02/02/19 22:21 Dose: 30 units Insulin Human Lispro (Humalog) 14 units SC AC [facility] Last Admin: 02/03/19 08:22 Dose: 14 units Losartan Potassium (Cozaar) 100 mg PO DAILY [facility] Last Admin: 02/02/19 09:15 Dose: 100 mg Metoprolol Tartrate (Lopressor) 50 mg PO BID [facility] Last Admin: 02/02/19 17:20 Dose: 50 mg Montelukast Sodium (Singulair) 10 mg PO DAILY [facility] Last Admin: 02/02/19 09:16 Dose: 10 mg Pantoprazole Sodium (Protonix Ec Tab) 40 mg PO ACB [facility] Last Admin: 02/03/19 08:22 Dose: 40 mg Polyethylene Glycol (Miralax) 17 gm PO DAILY [facility] Last Admin: 02/02/19 09:15 Dose: 17 gm Zaleplon (Sonata) 5 mg PO HS [facility] Last Admin: 02/02/19 22:21 Dose: 5 mg - Labs Labs: 02/03/19 06:20 02/03/19 06:20 - Constitutional Appears: No Acute Distress - Head Exam Head Exam: ATRAUMATIC, NORMAL INSPECTION, NORMOCEPHALIC - Eye Exam Eye Exam: EOMI, Normal appearance, PERRL. absent: Scleral icterus Pupil Exam: NORMAL ACCOMODATION - ENT Exam ENT Exam: Mucous Membranes Moist - Neck Exam Additional comments: supple - Respiratory Exam Respiratory Exam: Clear to Ausculation Bilateral. absent: Rales, Rhonchi, Wheezes - Cardiovascular Exam Cardiovascular Exam: REGULAR RHYTHM, +S1, +S2 - GI/Abdominal Exam GI & Abdominal Exam: Soft, Tenderness (mild tenderness all 4 quadrants upon pal pations), Normal Bowel Sounds - Back Exam Back Exam: absent: CVA tenderness (L), CVA tenderness (R) - Neurological Exam Neurological Exam: Alert, Awake, Oriented x3 - Psychiatric Exam Psychiatric exam: Normal Affect, Normal Mood - Skin Skin Exam: Dry, Warm Assessment and Plan - Assessment and Plan (Free Text) Plan: Ms Ashley, 58F with DM (A1C 12), GERD, reflux esophagitis, HTN, fibromyalgia, depression, anxiety, COPD, and asthma, COPD presenting with dizziness. She is under treatment for dyspeis in setting orf uncontrolled diabetes likely complicated by gastroparesis and constipation, on PPI ACB, Pepcid HS, miralax qd per GI. She is getting liver CT to re-evaluate liver lesions from CT liver 10/2016. CT showed L lobe of liver has a 3cm x 3.6cm lesion, likely hemangioma. CBD 5.8cm per U/S. As for fibromyalgia and mood, psych started her on cymbalta and sonata. - Levemir 30 HS, Humalog 14 ACTID - sugar improves - limit high glycemic food brought by visitors - diabetic education with dietitian counseling - continue to trend blood glucose s/r/d/w Dr Carlson
[2019-02-03] MEDS: POLYETHYLENE GLYCOL 3350 17 GM/Dose PACKET PO SCH (11:15)
--- NOTE | 2019-02-03 16:27 | CP.PCM.PN ---
Subjective - Date & Time of Evaluation Date of Evaluation: 02/03/19 Time of Evaluation: 16:21 - Subjective Subjective: Valentine Novoa, PGY2, GI Progress Note for Dr Torres: Patient seen and examined at bedside. No acute events overnight. Denies nausea, vomiting, abdominal pain, Last BM on Friday, soft. Objective - Vital Signs/Intake and Output Vital Signs (last 24 hours): Temp Pulse Resp BP Pulse Ox 98.3 F 60 20 102/62 98 02/03/19 06:00 02/03/19 11:15 02/03/19 06:00 02/03/19 11:15 02/03/19 06:00 Intake and Output: 02/03/19 02/03/19 06:59 18:59 Intake Total 757 Balance 757 - Labs Labs: 02/03/19 06:20 02/03/19 06:20 - Additional Findings Additional findings: - Constitutional Appears: Non-toxic, No Acute Distress - Head Exam Head Exam: ATRAUMATIC, NORMOCEPHALIC - Eye Exam Eye Exam: EOMI, PERRL. absent: Scleral icterus Pupil Exam: PERRL. absent: Miosis, Mydriatic - ENT Exam ENT Exam: Mucous Membranes Moist, Normal Oropharynx - Neck Exam Neck Exam: Full ROM, Normal Inspection - Respiratory Exam Respiratory Exam: Clear to Ausculation Bilateral. absent: Rales, Rhonchi, Wheezes - Cardiovascular Exam Cardiovascular Exam: RRR, +S1, +S2. absent: Gallop, Rubs - GI/Abdominal Exam GI & Abdominal Exam: Soft, Normal Bowel Sounds. absent: Distended, Firm, Guarding, Rigid, Tenderness, Organomegaly, Rebound - Extremities Exam Extremities Exam: Normal Inspection - Neurological Exam Neurological Exam: Alert, Awake - Psychiatric Exam Psychiatric exam: Normal Affect, Normal Mood - Skin Skin Exam: Dry, Intact, Normal Color, Warm Assessment and Plan - Assessment and Plan (Free Text) Assessment: # Dyspepsia # Constipation # Hyperglycemia # Uncontrolled DM # HTN # Fibromyalgia # Anxiety # COPD # Depression - Continue with Protonix 40 IV daily in AM, can continue Pepcid at nighttime. - tolerating liquid diet, advanced to diabetic diet - CT abd pelvis showed lesion in medial aspect of left lobe of liver - 3 cm x 3.6 cm, shows a nodular enhancement pattern, likely hemangiomas. - c/w Miralax daily for constipation - Abd US showed mild hepatomegaly. - Avoid NSAIDs, narcotic to decrease risk of ulceration, gastroparesis - Control diabetes, Dr Carlson's recs appreciated - Will continue to follow clinically - Further recs per Dr Torres. Case seen and discussed with Dr Torres.
--- NOTE | 2019-02-04 00:16 | PN ---
DATE: 02/03/2019 ENDOCRINOLOGY FOLLOWUP NOTE LOCATION: Room 371. SUBJECTIVE: This is a 58-year-old female with recent uncontrolled type 2 insulin-requiring diabetes, now being followed closely for metabolic management. Her glycemic levels are fluctuating but improved, and the glucose levels have ranged from 145 to 182 mg/dL. It was 229 at bedtime last night. LABORATORY DATA: Her chemistry showed a BUN of 19, sodium 139, potassium 4.5, chloride 102, CO2 of 31, glucose 138, and creatinine 0.7. ASSESSMENT: This is a 58-year-old female with uncontrolled and decompensated type 2 insulin-requiring diabetes with marked hyperglycemic accelerations and is now improving clinically and metabolically as noted thereof. PLAN OF MANAGEMENT: We will modify once again her basal and bolus insulin regimen to optimize metabolic control. We will increase her basal insulin Levemir to be given as 30 units subcu at bedtime daily as given. We will also modify her prandial insulin with Humalog to be increased to 14 units t.i.d. before meals to start today as ordered. We will continue the low-dose correction scale using Humalog insulin as given. We will obtain serial chemistries and supplement accordingly as needed. We will follow. Prabha Carlson MD
--- NOTE | 2019-02-04 10:37 | DS ---
HISTORY OF PRESENT ILLNESS: The patient came in with hyperglycemia and chest pain. The patient was seen by GI. The patient was seen by Cardiology and Pulmonology. Also, she was seen by psychiatric services for depression. The patient has medical history of diabetes mellitus, hyperglycemia, hypertension, esophageal reflux disease, anemia, osteoporosis , I see patient appeared in no acute distress. She denies shortness of breath, palpitations, abdominal pain, cough, hemoptysis, heartburn, constipation. PHYSICAL EXAMINATION: VITAL SIGNS: Reviewed; they were stable. GENERAL APPEARANCE: No acute distress or agitation. The patient was alert. Less depressed. Said that she slept better last night. HEENT: Normocephalic. PERRLA. Mucous membranes moist. NECK: Supple. Normal inspection. RESPIRATORY: Clear to auscultation. CARDIOVASCULAR: S1 and S2. No murmur, no gallop. ABDOMEN: Soft, nontender. No organomegaly. SKIN: Intact. Warm to touch. EXTREMITIES: No cyanosis. No edema. NEUROLOGIC: The patient is alert and oriented x3. Cranial nerves II through XII intact. No deficit. LABORATORY DATA: White blood cells 8.1, hemoglobin 13.4, hematocrit 41%, platelet count 284. PT of 11.6, INR of 1.2. Chemistries; sodium 139, potassium 4.5, carbon dioxide 31, chloride 102, BUN of 19, creatinine 0.7, GFR over 60. Urine was negative for UTI. AMBULATORY MEDICATIONS: Plavix 75 mg p.o. daily, Pepcid 40 mg p.o. daily, losartan potassium 100-mg tablet daily, Lopressor 50 mg p.o. twice a day, Tylenol as needed every 4 hours, Cymbalta 40 mg p.o. daily, Tricor 140 mg p.o. daily. The patient is on Levemir 30 units subcu at bedtime, Lispro insulin coverage for Accu-Chek twice a day. Macrobid 100 mg tab p.o. twice a day, Sonata 5 mg p.o. at bedtime. ASSESSMENT AND PLAN: This is a 58-year-old female came in with hypercalcemia and chest pain. She was seen by Cardiology and cleared. Medications were adjusted. The patient was also seen by Gastroenterology. The patient was seen by Pulmonary. Also, the patient was seen by Psychiatry for depression. The patient was treated for urinary tract infection with Macrobid 100 mg, she will be completing that outpatient twice a day for 14 days. Sonata was added to her medication list for insomnia. Levemir was adjusted by Endocrinology, 30 units subcu at bedtime. The patient is also on Cymbalta 40 mg for depression. She continues Lopressor 50 mg twice a day and losartan 100 mg p.o. daily. We will follow the patient in the office within 2 days. ALL ABOVE NOTED , D/D WITH [employer] . AGREED ALL ABOVE , WILL F/U Luis Angel Menjivar APN Malinda Saucedo MD SHAI
== END 2019-02-03 14:45 | disposition home or self-care (01) | DRG 638 ==
LOC: ED 20:31 → ERH 23:16 → 3RSO 01-31 00:14 → OBSVTOIN 02-01 16:10
PROVIDERS: ADMIT Internal Medicine; ATTEND Internal Medicine
DX: E11.65 Type 2 diabetes mellitus with hyperglycemia (principal); J44.1 Chronic obstructive pulmonary disease with (acute) exacerbation; R42 Dizziness and giddiness; I11.0 Hypertensive heart disease with heart failure; M79.7 Fibromyalgia; F17.210 Nicotine dependence, cigarettes, uncomplicated; E11.42 Type 2 diabetes mellitus with diabetic polyneuropathy; Z91.19 Patient's noncompliance with other medical treatment and regimen; F32.9 Major depressive disorder, single episode, unspecified; F41.9 Anxiety disorder, unspecified; G47.30 Sleep apnea, unspecified; K59.00 Constipation, unspecified; K21.0 Gastro-esophageal reflux disease with esophagitis; D18.00 Hemangioma unspecified site; E78.00 Pure hypercholesterolemia, unspecified; E78.5 Hyperlipidemia, unspecified; E83.52 Hypercalcemia; E86.0 Dehydration; E87.8 Other disorders of electrolyte and fluid balance, not elsewhere classified; G47.00 Insomnia, unspecified; I50.9 Heart failure, unspecified; K29.70 Gastritis, unspecified, without bleeding; K31.84 Gastroparesis; M81.0 Age-related osteoporosis without current pathological fracture; Z79.02 Long term (current) use of antithrombotics/antiplatelets; Z79.4 Long term (current) use of insulin; Z87.01 Personal history of pneumonia (recurrent); Z90.710 Acquired absence of both cervix and uterus; Z88.6 Allergy status to analgesic agent; F06.30 Mood disorder due to known physiological condition, unspecified; R16.0 Hepatomegaly, not elsewhere classified

== ENCOUNTER 2019-02-12 10:20 | Outpatient (CLI) | payer MEDICARE, OTHER | END 2019-02-12 10:21 | disposition home or self-care (01) | LOC: RAD 10:20 | DX: Z12.31 Encounter for screening mammogram for malignant neoplasm of breast (principal); Z13.820 Encounter for screening for osteoporosis ==

== ENCOUNTER 2019-02-15 08:50 | Outpatient (CLI) | payer MEDICARE, OTHER | END 2019-02-15 08:51 | disposition home or self-care (01) | LOC: CARDIO 08:50 ==